=== PATIENT | male | born 1950 | race Caucasian/White ===

== ENCOUNTER 2016-06-19 21:03 | Inpatient (IN) | payer MEDICARE ==
[2016-06-19] MEDS ORDERED: IPRATROPIUM/ALBUTEROL 3 ML VIAL NEB ONE ×4 (21:09→23:46)
[2016-06-19] MEDS: SODIUM CHLORIDE 0.9% (FLUSH) 10 ML SYG IV PRN (21:49)
[2016-06-19] MEDS ORDERED: methylPREDNISolone SODIUM SUC 125 MG/2 ML VIAL IV ONE (21:57)
--- NOTE | 2016-06-19 21:57 | ED.PDOC ---
History of Present Illness - General Chief Complaint: Respiratory Problem Stated Complaint: short of breath Time Seen by Provider: 06/19/16 21:13 Source: patient Exam Limitations: no limitations - History of Present Illness Initial Comments: W.P. 66 y/o male with history of copd ,heart problems came back to er with worsening cough and sob staring 2 days ago.Seen here in er last night given breathing treatment sent home Timing/Duration: other - 2 days ago Severity: moderate Improving Factors: nothing Worsening Factors: nothing Associated Symptoms: cough, shortness of breath Allergies/Adverse Reactions: Allergies NO KNOWN ALLERGY Allergy (Verified 06/19/16 21:12) Home Medications: Ambulatory Orders Albuterol Sulfate Nebs [Proventil Nebs] 2.5 mg INH Q4-6H PRN 04/21/14 Aspirin [Baby Aspirin] 81 mg PO DAILY 04/21/14 Budesonide-Formoterol Fumarate [Symbicort 160-4.5 Mcg/Act] 2 puff INH DAILY 03/25 Terazosin HCl 2 mg PO BEDTIME 04/21/14 Furosemide 40 mg PO QAM #30 tab 08/26/14 Omeprazole [Prilosec Cap] 20 mg PO ACBK #30 cap 08/26/14 Acetaminophen W/ Codeine [Tylenol w/Codeine 300-30 mg] 1 tab PO Q4HR PRN #30 tab 12/24/15 Citalopram Hydrobromide [Celexa] 20 mg PO BEDTIME 12/24/15 Potassium Gluconate 595 mg PO DAILY 12/24/15 Prednisone [Deltasone] 20 mg PO DAILY #10 tab 12/24/15 Umeclidinium [place] [Incruse Ellipta] 62.5 mcg IN DAILY 12/24/15 Review of Systems - Review of Systems Constitutional: States: no symptoms reported EENTM: States: see HPI, nose congestion Respiratory: States: see HPI, cough Cardiology: States: no symptoms reported Gastrointestinal/Abdominal: States: no symptoms reported Genitourinary: States: no symptoms reported Musculoskeletal: States: no symptoms reported Skin: States: no symptoms reported Neurological: States: no symptoms reported Endocrine: States: no symptoms reported Hematologic/Lymphatic: States: no symptoms reported Past Medical History (General) - Patient Medical History Hx Seizures: No Hx Stroke: No Hx Dementia: No Hx Asthma: No Hx of COPD: Yes Hx Cardiac Disorders: Yes Hx Congestive Heart Failure: Yes Hx Pacemaker: No Hx Hypertension: Yes Hx Thyroid Disease: No Hx Diabetes: No Hx Gastroesophageal Reflux: No Hx Renal Disease: No Hx of HIV: No Hx MRSA: No Hx Other PMH: Yes - KE Surgical History: appendectomy, other - orif-left ankle - Vaccination History Hx Tetanus, Diphtheria Vaccination: No Hx Influenza Vaccination: No Hx Pneumococcal Vaccination: No Immunizations Up to Date: No - Social History Hx Tobacco Use: Yes Hx Alcohol Use: No Hx Substance Use: No Hx Substance Use Treatment: No Hx Depression: Yes Hx Physical Abuse: No Hx Emotional Abuse: No - Activities of Daily Living Patient Lives Alone: No - family Grooming Ability: Independent Eating (Feeding) Ability: Independent Toileting Ability: Independent - Female History Patient is a Female of Child Bearing Age (10 -59 yrs old): No Patient : No Family Medical History - Family History Father Living Status: Cause of : lung cancer Hx Family Hypertension: Yes Hx Cardiac Disease: Yes Age of Onset (years of age): MS Hx Family Cancer: Yes - lung-dad; Hx Family;Other: SEIZURES Mother Living Status: Hx Family Hypertension: Yes Hx Cardiac Disease: Yes Hx Family Cancer: Yes - skin Physical Exam - Physical Exam General Appearance: Alert, No apparent distress Ears, Nose, Throat: hearing grossly normal, normal ENT inspection, normal pharynx Neck: non-tender, full range of motion, supple Respiratory: chest non-tender, no respiratory distress, decreased breath sounds Cardiovascular/Chest: normal peripheral pulses, regular rate, rhythm, no gallop , no JVD, no murmur Gastrointestinal/Abdominal: normal bowel sounds, non tender, soft Back Exam: normal inspection, no CVA tenderness Extremity: non-tender, normal inspection, no pedal edema Neurologic: no motor/sensory deficits, alert, normal mood/affect, oriented x 3 Skin Exam: normal color, warm/dry Lymphatic: no adenopathy Progress - Progress Progress: 06/19/16 23:28 Patient desaturated spo2-88% - Results/Orders Results/Orders: 06/19/16 21:19 IV Care:Saline Lock per Protoc QSHIFT Telemetry .ONCE Sodium Chloride 0.9% (Flush) [Saline Flush Syringe] 10 ml IV PRN PRN EKG Stat Pulse Ox Stat 06/19/16 21:20 EKG Assessment ONCE Pulse Oximetry Assessment DAILY 06/19/16 21:21 SVN [SVN/Updraft Therapy] .PRN 06/19/16 22:00 SVN/Updraft Therapy .ONCE 06/20/16 09:00 Updrafts Daily Laboratory Results WBC 9.1 K/mm3 (4.8-10.8) 06/19/16 21:31 RBC 5.58 M/mm3 (4.70-6.10) 06/19/16 21:31 Hgb 15.7 gm/dL (14.0-18.0) 06/19/16 21:31 Hct 47.6 % (42.0-52.0) 06/19/16 21:31 MCV 85.3 fl (80.0-94.0) 06/19/16 21:31 MCH 28.1 pg (27.0-31.0) 06/19/16 21:31 MCHC 33.0 g/dL (33.0-37.0) 06/19/16 21:31 RDW 14.1 % (11.5-14.5) 06/19/16 21:31 Plt Count 227 K/mm3 (130-400) 06/19/16 21:31 MPV 7.8 fl (7.40-10.4) 06/19/16 21:31 Absolute Neuts (auto) 7.20 K/uL (1.8-6.8) H 06/19/16 21:31 Absolute Lymphs (auto) 1.00 K/uL (1.0-3.4) 06/19/16 21:31 Absolute Monos (auto) 0.80 K/uL (0.2-0.8) 06/19/16 21:31 Absolute Eos (auto) 0.10 K/uL (0.0-0.4) 06/19/16 21:31 Absolute Basos (auto) 0.10 K/uL (0.0-0.1) 06/19/16 21:31 Neutrophils % 79.0 % (42.0-78.0) H 06/19/16 21:31 Lymphocytes % 10.9 % (20.0-50.0) L 06/19/16 21:31 Monocytes % 8.4 % (2.0-9.0) 06/19/16 21: Eosinophils % 0.9 % (1.0-5.0) L 06/19/16 21: Basophils % 0.8 % (0.0-2.0) 06/19/16 21: PT 12.6 SECONDS (9.4-12.5) H 06/19/16 21:31 INR 1.120 06/19/16 21:31 PTT (SP) 29.0 SECONDS (25.1-36.5) 06/19/16 21:31 Sodium 138 mmol/L (135-145) 06/19/16 21:31 Potassium 3.5 mmol/L (3.6-5.0) L 06/19/16 21:31 Chloride 104 mmol/L (101-111) 06/19/16 21:31 Carbon Dioxide 24 mmol/L (21-31) 06/19/16 21:31 Anion Gap 13.5 (12-18) 06/19/16 21:31 BUN 14 mg/dL (7-18) 06/19/16 21:31 Creatinine 1.24 mg/dL (0.6-1.3) 06/19/16 21:31 BUN/Creatinine Ratio 11.3 (10-20) 06/19/16 21:31 Random Glucose 113 mg/dL (70-105) H 06/19/16 21:31 Serum Osmolality 277.0 mOsm/L (275-295) 06/19/16 21:31 Calcium 8.7 mg/dL (8.4-10.2) 06/19/16 21:31 Magnesium 1.8 mg/dL (1.8-2.5) 06/19/16 21:31 Creatine Kinase 391 IU/L (38-174) H* 06/19/16 21:31 CK-MB (CK-2) 6.4 ng/mL (0.0-4.4) H* 06/19/16 21: CK-MB (CK-2) % 1.64 % (0.0-3.5) 06/19/16 21:31 Troponin I < 0.02 ng/mL (0.01-0.05) 06/19/16 21: B-Natriuretic Peptide 29.0 pg/ml (0-100) 06/19/16 21:31 flu swab-negative;cxr-copd changes - EKG/XRAY/CT EKG: nonspecific ST T wave Chg - inferior leads XRAY: chest - copd changes Departure - Departure Clinical Impression: COPD exacerbation, COPD with acute exacerbation Time of Disposition: 02:10 - D/W Monty Tristan ANP-Hospitalist for admit Disposition: Admit Patient Condition: Good Departure Forms: ED Discharge - Pt. Copy, Patient Portal Self Enrollment Referrals: CAMILLE JAMES IV, CERTIFIED PHYSICIAN'S ASSISTANT [Primary Care Provider] - 1-2 Weeks Home Medications: Ambulatory Orders Albuterol Sulfate Nebs [Proventil Nebs] 2.5 mg INH Q4-6H PRN 04/21/14 Aspirin [Baby Aspirin] 81 mg PO DAILY 04/21/14 Budesonide-Formoterol Fumarate [Symbicort 160-4.5 Mcg/Act] 2 puff INH DAILY 03/25 Terazosin HCl 2 mg PO BEDTIME 04/21/14 Furosemide 40 mg PO QAM #30 tab 08/26/14 Omeprazole [Prilosec Cap] 20 mg PO ACBK #30 cap 08/26/14 Acetaminophen W/ Codeine [Tylenol w/Codeine 300-30 mg] 1 tab PO Q4HR PRN #30 tab 12/24/15 Citalopram Hydrobromide [Celexa] 20 mg PO BEDTIME 12/24/15 Potassium Gluconate 595 mg PO DAILY 12/24/15 Prednisone [Deltasone] 20 mg PO DAILY #10 tab 12/24/15 Umeclidinium [place] [Incruse Ellipta] 62.5 mcg IN DAILY 12/24/15
[2016-06-19] MEDS ORDERED: DOXYCYCLINE HYCLATE CAP 100 MG CAP PO ONE (22:00)
[2016-06-19] MEDS ORDERED: BENZONATATE PERLES 100 MG CAP PO ONE (22:06)
--- NOTE | 2016-06-20 02:37 | HP ---
SUPERVISING PHYSICIAN: Kenji Russell MD CHIEF COMPLAINT: Worsening shortness of breath. HISTORY OF PRESENT ILLNESS: Mr. Vicente is a 66-year-old, male patient with a history of chronic obstructive pulmonary disease that presented to the Emergency Department on date of admission with complaint of worsening cough that is becoming productive and increase in shortness of breath over the last 48 hours. He was previously seen within the last three weeks at the [facility] with Derek Kurtz for an upper respiratory infection and exacerbation of chronic obstructive pulmonary disease and was treated with azithromycin and a prednisone tapering regimen. He notes he had some improvement, but in the last 48 hours, he started having significant increase in shortness of breath with minimal exertion and a productive cough. He also notes that he had a fever a home prior to coming to the Emergency Department noted to be 101. On presentation to the Emergency Department, the patient did have a fever of 100.5. Pulse 110. Respirations 28. He was significantly short of breath and labored, using accessory muscles and saturating 92% on room air at rest. He was given breathing treatments which did help to decrease his respiratory effort , however, he maintained low O2 saturation on nasal cannula at 2 liters with 92% . Laboratory studies initially showed white count 9.1, hemoglobin 15.7, hematocrit 47.6 with a left shift noted. Blood gas analysis showed normal pH 7.43, PCO2 38, PO2 showing a mild hypoxemia PaO2 of 70 mmHg with carboxyhemoglobin of 2.1. Saturation 95% on nasal cannula at 2 liters. A chest x-ray was completed and per radiology interpretation initially showed no acute processes. There was no obvious infiltrate or consolidation noted. The patient has failed an outpatient treatment plan for previous exacerbation of his chronic obstructive pulmonary disease. He continues to smoke approximately one pack of cigarettes per day and started to show worsening symptoms to include fever, productive cough and having been recently on antibiotics within the last 20 days is now going to be admitted to the Medical/Surgical Floor for acute exacerbation of chronic obstructive pulmonary disease having failed to respond to outpatient treatment plan. PAST MEDICAL HISTORY: 1. Chronic obstructive pulmonary disease with recent exacerbation, treated in outpatient setting with antibiotics and corticosteroids. 2. Hypertension. 3. Benign prostatic hypertrophy. 4. Congestive heart failure with peripheral edema, last echocardiogram to be in 2016 per the patient with no current records for review. 5. Chronic tobacco abuse anywhere from half to one pack of cigarettes per day. 6. Depression and anxiety. PAST SURGICAL HISTORY: 1. Left ankle fracture requiring open reduction in 1979. 2. Appendectomy at age 21. 3. Tonsillectomy as a child. HOME MEDICATIONS: 1. Potassium chloride 10 mEq twice daily. 2. Albuterol nebulizer 0.083% inhaled q.4h. p.r.n. 3. Tylenol No. 3, 1 tablet q.4h. as needed. 4. Symbicort 160/4.5 mcg per actuator, 2 puffs inhaled twice daily. 5. Aspirin 81 mg daily. 6. Furosemide 40 mg at noon. 7. Celexa 20 mg daily. 8. Omeprazole 20 mg at breakfast. 9. Lasix 40 mg in the morning. 10. Incruse Ellipta 62.5 mcg daily. 11. Terazosin 2 mg at bedtime. ALLERGIES: NO KNOWN DRUG ALLERGIES. FAMILY HISTORY: Significant for chronic obstructive pulmonary disease, lung cancer, cardiovascular disease. SOCIAL HISTORY: The patient is disabled. He lives in [place]. He is . He has a history of smoking tobacco for over 50 years ranging from one to three packs per day and currently smoking. He denies alcohol or illicit drug use. REVIEW OF SYSTEMS: CONSTITUTIONAL: As noted, he reports subjective fever and some chills and has had fluctuation in his weight secondary to exacerbation of congestive heart failure. HEENT: As noted, some nasal congestion with sinus pressure and increasing cough. RESPIRATORY: Chronic shortness of breath with exacerbation with minimal exertion within the last two three days as noted in the history of present illness. CARDIOVASCULAR: Denies chest pains or syncopal episodes. He does have chronic lower extremity edema with history of congestive heart failure. GASTROINTESTINAL: Denies nausea or vomiting. No diarrhea. GENITOURINARY: He does have a history of benign prostatic hypertrophy, but denies and current dysuria or any urinary symptoms. EXTREMITIES: Chronic peripheral edema secondary to congestive heart failure. NEUROLOGIC: Denies headaches, weakness other than associated with his shortness of breath with minimal exertion. PHYSICAL EXAMINATION: VITAL SIGNS: Temperature on admission 100.5. Pulse 110. Blood pressure 150/ 97. Respirations 28, labored and using accessory muscles. O2 saturation 92% on room air at rest. Admission weight 128.9 kg. GENERAL: The patient is very unkempt, disheveled with a strong odor of tobacco. He seems to be in mild distress on examination in the Emergency Department. He is unable to talk in complete sentences at times even on oxygen. HEENT: Tympanic membranes occluded with cerumen bilaterally. Oropharynx is pink , moist without any lesions noted. NECK: No jugular venous distention noted. CHEST: Lung sounds are diminished bilaterally with inspiratory and expiratory wheezing heard on the right lung more than the left with some faint rhonchi on the posterior right base. CARDIOVASCULAR: Regular rate and rhythm without any appreciable murmurs, gallops, or rubs. ABDOMEN: Obese, but soft, nontender. Positive bowel sounds. EXTREMITIES: There is no cyanosis, clubbing or edema. NEUROLOGIC: The patient is alert and oriented times three. Facial features are symmetrical. Extraocular movements are within normal limits. There is no nystagmus noted. There are no obvious neuromotor deficits. LABORATORY: White count within normal limits with white count 9.1, hemoglobin 15.7, hematocrit 47.6. There is a left shift noted. Coagulation studies show slightly elevated PT of 12.6 and PT-T was 29.0. Blood gas analysis showed normal pH with PCO2 38 with a mild hypoxemia noted at 70. Bicarb normal at 24.7. Carboxyhemoglobin 2.1. Gas was taken on 2 liters nasal cannula at rest. Chemistries showed just a mildly low potassium of 3.5, BUN 14, creatinine 1.24 , glucose 113. CPK elevated at 391, troponin less than 0.02, BNP 29.0. Urinalysis is pending. MICROBIOLOGY: Blood cultures pending. Sputum culture pending. Influenza A and B negative by PCR. RADIOLOGY: Chest x-ray per radiology interpretation showed no acute pleural parenchymal processes noted with notable underlying changes of chronic obstructive pulmonary disease. ASSESSMENT: 1. Acute exacerbation of chronic obstructive pulmonary disease having failed to respond to recent outpatient treatment plan that included azithromycin and corticosteroid regimen with concerns for development of early pneumonia with current radiographic studies without any evidence of consolidations or effusions. 2. Mild hypoxemia as noted on arterial blood gases and acute exacerbation of chronic obstructive pulmonary disease in a chronic smoker, having failed to respond recently to outpatient treatment plan. 3. History of congestive heart failure with chronic pedal edema with possible systolic/diastolic etiology with no current echocardiogram available for chart review with the patient reporting last echocardiogram in 2016. 4. History of essential hypertension. 5. Gastroesophageal reflux disease. 6. Chronic tobacco abuse. 7. History of chronic anxiety and depressive symptoms. PLAN: The patient will be admitted to the hospital having failed to respond to treatment of recently exacerbation of chronic obstructive pulmonary disease. He will be started on Solu-Medrol initially 125 mg to be continued at 80 mg for 3 doses. He will be started on antibiotic coverage to include azithromycin and Rocephin with concerns for early development of pneumonia with risk factors including recent exacerbation having been on antibiotic coverage in the past 3 weeks and a patient who continues to smoke showing increasing shortness of breath with minimal exertion with no evidence of exacerbation of his congestive heart failure. He will be started on DVT prophylaxis per protocol. We will provide him with aggressive pulmonary hygiene to include DuoNeb treatments q.i.d. and pulmonary toiletry. He will be continued on Protonix IV while on corticosteroids. We will anticipate his length of stay to be 2 to 3 days. Until then, we will continue to monitor the patient closely and treat appropriately. Once discharged, the patient will need close clinical followup with his primary care provider at [facility] with nurse practitioner, Derek Kurtz. #[id number] [facility]ERShelby
[2016-06-20] MEDS ORDERED: ACETAMINOPHEN 325 MG TAB PO PRN (03:02)
[2016-06-20] MEDS ORDERED: SODIUM CHLORIDE 0.9% 250ML 250 ML ONE ×2 (03:22→22:28)
[2016-06-20] MEDS ORDERED: SODIUM CHL 0.9% 50ML MIN-BAG+ 50 ML IVPB ONE ×2 (03:22→22:28)
[2016-06-20] MEDS ORDERED: SODIUM CHLORIDE 0.9% 10 ML VIAL ONE (03:22)
[2016-06-20] MEDS ORDERED: AZITHROMYCIN IV 500 MG VIAL IVPB ONE ×2 (03:23→22:29)
[2016-06-20] MEDS ORDERED: cefTRIAXone SODIUM 1 GM VIAL ONE ×2 (03:24→22:29)
[2016-06-20] MEDS: SODIUM CHLORIDE 0.9% (FLUSH) 10 ML SYG IV PRN ×2 (03:29→06:31)
[2016-06-20] MEDS: methylPREDNISolone SODIUM SUC 125 MG/2 ML VIAL IV SCH ×3 (03:29→21:52)
[2016-06-20] MEDS: cefTRIAXone SODIUM 1 GM in SODIUM CHL 0.9% 50ML MIN-BAG+ 50 ML IVPB SCH (03:29)
[2016-06-20] MEDS: IV SET AND CAP CHANGE INJ INJ SCH (03:30)
[2016-06-20] MEDS: AZITHROMYCIN IV 500 MG in SODIUM CHLORIDE 0.9% 250ML 250 ML IVPB SCH (04:04)
[2016-06-20] MEDS: PANTOPRAZOLE SODIUM IV 40 MG VIAL IV SCH (06:31)
[2016-06-20] MEDS: IPRATROPIUM/ALBUTEROL 3 ML VIAL INH SCH ×5 (07:40→21:10)
[2016-06-20] MEDS: SODIUM CHLORIDE 0.9% (FLUSH) 10 ML SYG IV SCH ×2 (09:22→21:51)
[2016-06-20] MEDS ORDERED: POTASSIUM CHLORIDE 20 MEQ TAB PO ONE (11:15)
--- NOTE | 2016-06-20 11:42 | PN ---
SUPERVISING PHYSICIAN: Kenji Russell MD DATE: 06/20/16 SUBJECTIVE: The patient is sitting up in his bed. He complains of shortness of breath with minimal exertion. He denies any chest pain, abdominal pain, nausea or vomiting. OBJECTIVE: VITAL SIGNS: Temperature 100.5. Heart rate has gone up as high as 110, but is now 96. Blood pressure 150/84. Respiratory rate 30. O2 saturation 92% on 2 liters nasal cannula. GENERAL: This is a 66-year-old, obese male who sitting up in his hospital bed. He is dyspneic with talking. LUNGS: Expiratory wheezing throughout, somewhat diminished at the bases. CARDIAC: Regular rate and rhythm. ABDOMEN: Obese, rounded, soft. Bowel sounds are positive. EXTREMITIES: No cyanosis or clubbing, but there is trace pedal edema bilaterally. NEUROLOGIC: Awake, alert and oriented times three. LABORATORY: Potassium 3.5, glucose 113, creatinine kinase 391. CK-MB 6.4. WBC 9.1, but neutrophils are 79. All other labs and films have been reviewed via the EMR. ASSESSMENT: 1. Acute exacerbation of chronic obstructive pulmonary disease having failed to respond to recent outpatient treatment that included Zithromax and oral corticosteroids and concerns for development of early pneumonia. 2. Mild hypoxemia as noted on arterial blood gases and acute exacerbation of chronic obstructive pulmonary disease in a chronic smoker. 3. History of congestive heart failure with chronic pedal edema with possible systolic/diastolic etiology with no current echocardiogram available for chart review. 4. History of essential hypertension. 5. Gastroesophageal reflux disease. 6. Chronic tobacco abuse. 7. History of chronic anxiety and depressive symptoms. PLAN: We will continue present antibiotic therapy of Rocephin and Zithromax. I will continue to slowly taper down his steroids. I have added Lovenox for DVT prophylaxis. I have re-started his home medications. I have also called Derek Kurtz's office to see if he can fax us a recent copy of his echocardiogram. I have also given him an additional dosing of potassium today as his potassium was slightly low. I started him on some Mucinex. He will need an ambulatory study tomorrow and his CK will probably need to be repeated before discharge. I have not re-started his Lasix or his potassium as of yet as he is about 9 pounds under what his weight is at home on a normal basis. I will recheck tomorrow and re-start that at that time. We will continue to encourage good pulmonary toilet. I have started discussions with him about tobacco cessation and we will continue discussing that tomorrow. He will need an ambulation study tomorrow. Dr. Russell is the collaborating physician and available for consultation. #[id number] MTDD
[2016-06-20] MEDS: guaiFENesin ER TAB 600 MG TAB PO SCH ×2 (12:12→21:51)
[2016-06-20] MEDS: ENOXAPARIN SODIUM 40 MG/0.4 ML SYG SUBCU SCH (12:12)
[2016-06-20] MEDS: TERAZOSIN 1 MG CAP PO SCH (21:51)
[2016-06-21] MEDS: methylPREDNISolone SODIUM SUC 125 MG/2 ML VIAL IV SCH ×4 (03:15→20:50)
[2016-06-21] MEDS: cefTRIAXone SODIUM 1 GM in SODIUM CHL 0.9% 50ML MIN-BAG+ 50 ML IVPB SCH (03:18)
[2016-06-21] MEDS: AZITHROMYCIN IV 500 MG in SODIUM CHLORIDE 0.9% 250ML 250 ML IVPB SCH (03:55)
[2016-06-21] MEDS: PANTOPRAZOLE SODIUM IV 40 MG VIAL IV SCH (06:10)
--- NOTE | 2016-06-21 06:58 | RAD ---
EXAM: Two view chest. INDICATION: Chest pain. COMPARISON: Chest x-ray: 06/19/2016. FINDINGS: Cardiac silhouette: Unremarkable. Kayley: Unremarkable. Lobar consolidation: None.Pleural effusion: None.Pneumothorax: None.Other: Lungs are emphysematous Bones: Unremarkable. Other: None. IMPRESSION: Emphysematous appearing lungs Electronically signed by: Houston Cai MD 06/21/2016 6:57 AM [facility] ATTENDANT
--- NOTE | 2016-06-21 07:45 | RAD ---
EXAM DESCRIPTION: XR CHEST 2 VIEWS CLINICAL HISTORY: Pneumonia COMPARISON: June 19, 2016 FINDINGS: Two-view chest x-ray shows cardiomediastinal silhouette and pulmonary vasculature to be within normal limits. The lungs are hyperinflated without acute appearing infiltrate or consolidation. There is a 5 mm probably calcified pulmonary nodule in the central right lung best seen on PA projection. Costophrenic angles are sharp. Mild disc degenerative changes of the spine are seen. IMPRESSION: No radiographic evidence of acute cardiopulmonary disease in this emphysematous chest. Electronically signed by: Gopi Velasco MD 06/21/2016 07:43
[2016-06-21] MEDS ORDERED: ASPIRIN (CHEWABLE) 81 MG TAB ONE (07:59)
[2016-06-21] MEDS ORDERED: CITALOPRAM HBR 20 MG TAB ONE (07:59)
[2016-06-21] MEDS: NON-FORMULARY MEDICATION 1 EA MIS (Umeclidinium Bromide [Incruse Ellipta] 62.5 MCG) IN SCH (08:27)
[2016-06-21] MEDS: IPRATROPIUM/ALBUTEROL 3 ML VIAL INH SCH ×4 (08:28→21:25)
[2016-06-21] MEDS: BUDESONIDE/FORMOTEROL 160/4.5 60 PUFF/6 GM INH INH SCH ×2 (08:35→21:25)
[2016-06-21] MEDS: ASPIRIN (CHEWABLE) 81 MG TAB PO SCH (09:21)
[2016-06-21] MEDS: guaiFENesin ER TAB 600 MG TAB PO SCH ×2 (09:21→20:49)
[2016-06-21] MEDS: CITALOPRAM HBR 20 MG TAB PO SCH (09:22)
[2016-06-21] MEDS: SODIUM CHLORIDE 0.9% (FLUSH) 10 ML SYG IV SCH ×2 (09:22→20:49)
[2016-06-21] MEDS: ENOXAPARIN SODIUM 40 MG/0.4 ML SYG SUBCU SCH (11:56)
[2016-06-21] MEDS ORDERED: DEXTROSE 50% 25 GM/50 ML SYG IV PRN (14:40)
[2016-06-21] MEDS ORDERED: GLUCAGON INJ 1 MG VIAL SUBCU PRN (14:40)
--- NOTE | 2016-06-21 16:03 | PN ---
DATE: 06/21/16 SUPERVISING PHYSICIAN: Kenji Russell M.D. SUBJECTIVE: The patient is sitting up on the side of his bed. He has just finished his bath. He is extremely short of breath. He actually cannot form words without using his mask from his CPAP machine. He denies any chest pain, abdominal pain or nausea or vomiting. He does say that he gets extremely short of breath. OBJECTIVE: VITAL SIGNS: Afebrile, heart rate 90, blood pressure 155/94, respiratory rate 30, O2 sat is 91%. GENERAL: This is a 66 year-old obese male who is dyspneic at this time siting on the side of his bed. LUNGS: He has expiratory wheezing throughout. He is diminished at the bases and there are a few scattered rhonchi throughout. CARDIAC: Regular rate and rhythm. ABDOMEN: Obese, rounded. It is soft. His bowel sounds are positive. EXTREMITIES: No cyanosis, clubbing or edema. NEUROLOGIC: He is awake, alert and oriented times three. LABORATORY: Sodium 138, potassium 4.2, BUN 23, creatinine 0.96. WBC 15, hemoglobin 15.6, hematocrit 47.6. He does have a left shift. Preliminary sputum culture shows normal lakia at 24 hours. Preliminary blood cultures show no growth after 24 hours. Chest x-ray shows emphysematous lungs. All other labs and films have been reviewed via the EMR. ASSESSMENT: 1. Acute exacerbation of chronic obstructive pulmonary disease having failed to respond to recent outpatient treatment that included Zithromax and oral corticosteroids as well as concerns for developing early pneumonia. 2. Hypoxemia as noted on arterial blood gases with PO2 of 70 and an acute exacerbation of chronic obstructive pulmonary disease in a chronic smoker. 3. History of congestive heart failure with chronic pedal edema. 4. History of hypertension. 5. Gastroesophageal reflux disease. 6. Chronic tobacco abuse. 7. Chronic anxiety and depressive symptoms. PLAN: We will continue present antibiotic treatment of Rocephin and Zithromax. He still has IV steroids being administered as for right now I may have to go up on those dosings due to his lung status. His Lasix has been restarted. We have talked extensively about smoking cessation. I will also order labs tomorrow, including creatinine kinase. Continue to encourage good pulmonary toilet. I have also ordered sliding scale insulin to cover for his elevated blood sugars due to corticosteroid administration. Also followup to make sure that echocardiogram was received from Derek Kurtz's office. Will continue to monitor the patient closely and follow as needed. #[id number] [facility]
[2016-06-21] MEDS: INSULIN LISPRO 100 UNITS/ML PEN SUBCU SCH ×2 (17:46→20:53)
[2016-06-21] MEDS ORDERED: SODIUM CHL 0.9% 50ML MIN-BAG+ 50 ML IVPB ONE (20:12)
[2016-06-21] MEDS ORDERED: cefTRIAXone SODIUM 1 GM VIAL ONE (20:12)
[2016-06-21] MEDS ORDERED: SODIUM CHLORIDE 0.9% 250ML 250 ML ONE (20:12)
[2016-06-21] MEDS ORDERED: AZITHROMYCIN IV 500 MG VIAL IVPB ONE (20:13)
[2016-06-21] MEDS: TERAZOSIN 1 MG CAP PO SCH (20:49)
[2016-06-21] MEDS: SIMVASTATIN 10 MG TAB PO SCH (20:51)
[2016-06-22] MEDS: methylPREDNISolone SODIUM SUC 125 MG/2 ML VIAL IV SCH ×2 (03:14→08:35)
[2016-06-22] MEDS: SODIUM CHLORIDE 0.9% (FLUSH) 10 ML SYG IV PRN ×2 (03:15→06:04)
[2016-06-22] MEDS: cefTRIAXone SODIUM 1 GM in SODIUM CHL 0.9% 50ML MIN-BAG+ 50 ML IVPB SCH (03:16)
[2016-06-22] MEDS: AZITHROMYCIN IV 500 MG in SODIUM CHLORIDE 0.9% 250ML 250 ML IVPB SCH (03:49)
[2016-06-22] MEDS: ALBUTEROL SULFATE 2.5 MG/3 ML VIAL NEB PRN (03:55)
[2016-06-22] MEDS: PANTOPRAZOLE SODIUM IV 40 MG VIAL IV SCH (06:03)
[2016-06-22] MEDS: INSULIN LISPRO 100 UNITS/ML PEN SUBCU SCH ×4 (07:28→21:24)
[2016-06-22] MEDS: guaiFENesin ER TAB 600 MG TAB PO SCH ×2 (08:35→21:19)
[2016-06-22] MEDS: SODIUM CHLORIDE 0.9% (FLUSH) 10 ML SYG IV SCH ×2 (08:35→21:18)
[2016-06-22] MEDS: ASPIRIN (CHEWABLE) 81 MG TAB PO SCH (08:36)
[2016-06-22] MEDS: CITALOPRAM HBR 20 MG TAB PO SCH (08:36)
[2016-06-22] MEDS: BUDESONIDE/FORMOTEROL 160/4.5 60 PUFF/6 GM INH INH SCH ×2 (09:02→22:56)
[2016-06-22] MEDS: NON-FORMULARY MEDICATION 1 EA MIS (Umeclidinium Bromide [Incruse Ellipta] 62.5 MCG) IN SCH (09:02)
[2016-06-22] MEDS: IPRATROPIUM/ALBUTEROL 3 ML VIAL INH SCH ×4 (09:02→22:56)
[2016-06-22] MEDS: ENOXAPARIN SODIUM 40 MG/0.4 ML SYG SUBCU SCH (11:55)
[2016-06-22] MEDS ORDERED: POTASSIUM CHLORIDE 10 MEQ TAB PO ONE (12:55)
[2016-06-22] MEDS: FUROSEMIDE 40 MG TAB PO SCH (13:05)
[2016-06-22] MEDS: POTASSIUM CHLORIDE 10 MEQ TAB PO SCH ×2 (13:10→16:53)
--- NOTE | 2016-06-22 13:37 | PN ---
DATE: 06/22/16 SUPERVISING PHYSICIAN: Venkat Powell M.D. SUBJECTIVE: The patient is sitting up on the side of his bed eating his lunch. He has no complaints of chest discomfort, shortness of breath, nausea or vomiting. In fact, he states he feels "100 percent better than yesterday." OBJECTIVE: VITAL SIGNS: He is afebrile, heart rate 103, blood pressure 137/74, respiratory rate 21, O2 sats are 90%. Intake 2700, output 2200. There is no weight from today on the chart. GENERAL: This is a 66 year-old obese male who is sitting up in his bed. He is in no acute distress. RESPIRATORY: A few scattered expiratory wheezing throughout and some rhonchi in the apices, but much improved since yesterday. CARDIAC: Regular rate and rhythm. ABDOMEN: Soft , nondistended, non-tender. Bowel sounds are positive. NEUROLOGIC: He is awake , alert and oriented times three. LABORATORY: WBC 15.1 with a left shift. BUN 25, creatinine 1.05, creatinine kinase is slightly up from 2 days ago at 467. His final sputum culture shows normal lakia and his preliminary blood cultures show no growth after 48 hours. All other labs and films have been reviewed via the EMR. ASSESSMENT: 1. Acute exacerbation of chronic obstructive pulmonary disease having failed to respond to recent outpatient treatment that included Azithromycin and oral corticosteroids as well as concerns for developing of early pneumonia. 2. Hypoxemia as noted on ABG with a PO2 of 70. 3. Acute exacerbation of chronic obstructive pulmonary disease in a chronic smoker. 4. History of congestive heart failure with chronic pedal edema. 5. History of hypertension. 6. Gastroesophageal reflux disease. 7. Chronic tobacco abuse. 8. Chronic anxiety and depressive symptoms. PLAN: We will continue his present antibiotics as well as his breathing treatments. I have encouraged good pulmonary hygiene. I have decreased his IV steroids today and tomorrow morning he will start p.o. steroids. Will continue with a p.o. steroid taper. I have also restarted his Lasix and his potassium from his home medications. I will do a chest x-ray and labs in the morning. He has improved greatly since yesterday and only occasionally shows some dyspnea which most likely is at his baseline. I have encouraged him to stop smoking. We will continue to monitor the patient closely and followup as needed. Dr. Powell is the supervising physician and available for consultation. #[id number] [facility]
[2016-06-22] MEDS: methylPREDNISolone SODIUM SUC 40 MG/ML VIAL IV SCH ×2 (15:29→21:18)
[2016-06-22] MEDS: TERAZOSIN 1 MG CAP PO SCH (21:19)
[2016-06-22] MEDS: SIMVASTATIN 10 MG TAB PO SCH (21:19)
[2016-06-23] MEDS ORDERED: cefTRIAXone SODIUM 1 GM VIAL ONE (03:10)
[2016-06-23] MEDS ORDERED: SODIUM CHLORIDE 0.9% 250ML 250 ML ONE (03:10)
[2016-06-23] MEDS ORDERED: SODIUM CHL 0.9% 50ML MIN-BAG+ 50 ML IVPB ONE (03:10)
[2016-06-23] MEDS ORDERED: AZITHROMYCIN IV 500 MG VIAL IVPB ONE (03:10)
[2016-06-23] MEDS: SODIUM CHLORIDE 0.9% (FLUSH) 10 ML SYG IV PRN ×2 (03:23→06:03)
[2016-06-23] MEDS: cefTRIAXone SODIUM 1 GM in SODIUM CHL 0.9% 50ML MIN-BAG+ 50 ML IVPB SCH (03:24)
[2016-06-23] MEDS: IV SET AND CAP CHANGE INJ INJ SCH (04:00)
[2016-06-23] MEDS: AZITHROMYCIN IV 500 MG in SODIUM CHLORIDE 0.9% 250ML 250 ML IVPB SCH (04:00)
[2016-06-23] MEDS: SODIUM CHLORIDE 0.9% 10 ML VIAL IV PRN ×2 (04:01→06:03)
[2016-06-23] MEDS: PANTOPRAZOLE SODIUM IV 40 MG VIAL IV SCH (06:04)
--- NOTE | 2016-06-23 07:06 | RAD ---
EXAM: Two view chest. INDICATION: Chest pain. COMPARISON: Chest x-ray: 06/21/2016. FINDINGS: Cardiac silhouette: Unremarkable. Kayley: Unremarkable. Lobar consolidation: None.Pleural effusion: None.Pneumothorax: None.Other: The lungs are emphysematous Bones: Unremarkable. Other: None. IMPRESSION: Emphysematous appearing lungs Electronically signed by: Houston Cai MD 06/23/2016 7:05 AM [facility] ASSISTANT
[2016-06-23] MEDS ORDERED: predniSONE 20 MG TAB ONE (07:10)
[2016-06-23] MEDS: INSULIN LISPRO 100 UNITS/ML PEN SUBCU SCH ×4 (07:25→21:14)
[2016-06-23] MEDS: POTASSIUM CHLORIDE 10 MEQ TAB PO SCH ×2 (07:45→16:35)
[2016-06-23] MEDS: FUROSEMIDE 40 MG TAB PO SCH (08:34)
[2016-06-23] MEDS: CITALOPRAM HBR 20 MG TAB PO SCH (08:34)
[2016-06-23] MEDS: guaiFENesin ER TAB 600 MG TAB PO SCH ×2 (08:34→20:54)
[2016-06-23] MEDS: ASPIRIN (CHEWABLE) 81 MG TAB PO SCH (08:34)
[2016-06-23] MEDS: SODIUM CHLORIDE 0.9% (FLUSH) 10 ML SYG IV SCH ×2 (08:35→20:57)
[2016-06-23] MEDS: NON-FORMULARY MEDICATION 1 EA MIS (Umeclidinium Bromide [Incruse Ellipta] 62.5 MCG) IN SCH (08:48)
[2016-06-23] MEDS: BUDESONIDE/FORMOTEROL 160/4.5 60 PUFF/6 GM INH INH SCH (08:48)
[2016-06-23] MEDS: IPRATROPIUM/ALBUTEROL 3 ML VIAL INH SCH (08:48)
[2016-06-23] MEDS ORDERED: predniSONE 20 MG TAB PO SCH (09:00)
[2016-06-23] MEDS ORDERED: FUROSEMIDE INJ 40 MG/4 ML VIAL IV ONE (10:38)
[2016-06-23] MEDS ORDERED: levoFLOXacin 500MG IV 100 ML IVPB ONE (10:43)
[2016-06-23] MEDS ORDERED: levoFLOXacin 500MG IV 500 MG in PREMIX BAG 1 BAG IVPB SCH (11:00)
[2016-06-23] MEDS: levoFLOXacin 500MG IV 500 MG in PREMIX BAG 1 BAG IVPB SCH (11:18)
[2016-06-23] MEDS: methylPREDNISolone SODIUM SUC 125 MG/2 ML VIAL IV SCH ×2 (11:19→18:34)
[2016-06-23] MEDS: ENOXAPARIN SODIUM 40 MG/0.4 ML SYG SUBCU SCH (11:20)
[2016-06-23] MEDS: IPRATROPIUM/ALBUTEROL 3 ML VIAL NEB SCH ×3 (11:55→19:45)
--- NOTE | 2016-06-23 12:57 | PN ---
DATE: 06/23/16 SUPERVISING PHYSICIAN: Venkat Powell M.D. SUBJECTIVE: The patient is sitting up in his hospital bed. He is very dyspneic. He can only speak 1 to 2 words at a time without shortness of breath. We discussed at length smoking cessation. He says he has not wanted a cigarette since he has been here, but that he was not interested in stopping smoking at this time. I instructed him that if he continued to smoke, his life expectancy would be very short. Other than complaining of shortness of breath, wheezing and coughing, he denies any chest pain, abdominal pain, nausea or vomiting. OBJECTIVE: He is afebrile, heart rate 99, blood pressure 144/94, respiratory rate 20 to 28, O2 saturation is 90%. Weight is stable. Overnight, he lost 0.7 kg. RESPIRATORY: Bilateral scattered rhonchi with diffuse expiratory wheezing. He is diminished at the bases. He is tachypneic. CARDIAC: Regular rate and rhythm. ABDOMEN: Soft, obese. Bowel sounds are positive. EXTREMITIES: No cyanosis, clubbing or edema. NEUROLOGIC: He is awake, alert and oriented times three. LABORATORY: WBC 13.5, BUN 26, creatinine 0.90, glucose 152, creatinine kinase 28. Final sputum culture shows normal lakia. Preliminary blood cultures showed no growth after 3 days. Chest x-ray shows emphysematous lungs. All other labs and films have been reviewed via the EMR. ASSESSMENT: 1. Acute exacerbation of chronic obstructive pulmonary disease having failed to respond to recent outpatient treatment that included Azithromycin and oral corticosteroids as well as concern for developing early pneumonia. 2. Hypoxemia as noted on an ABG with a PO2 of 70 as well as low oxygen saturations. 3. Acute exacerbation of chronic obstructive pulmonary disease in a chronic smoker. 4. History of congestive heart failure with chronic pedal edema. 5. History of hypertension. 6. Gastroesophageal reflux disease. 7. Chronic tobacco abuse. 8. Chronic anxiety and depressive symptoms. PLAN: We will continue present supportive care. I have discontinued his Azithromycin and Rocephin and I am going to change his antibiotic to Levaquin. I had tried to taper his steroids down, but his respiratory status has worsened. I spoke with Dr. Powell at length and we have decided that we will increase his Solu-Medrol to 125 every 8 hours at least until tomorrow. I am giving some extra Lasix today. I will check his routine labs in the morning. He has scheduled DuoNeb and p.r.n. Albuterol treatments, and I have added Albuterol nebulizer treatments every 4 hours. I will do an ambulatory study in the morning. We will also need to continue to stress smoking cessation as if the patient does not quit smoking, his prognosis is very poor. It may be advisable to discuss with him his code status at some point. Otherwise we will continue present supportive care. We will monitor the patient and followup as needed. #[id number] [facility]
[2016-06-23] MEDS: ALBUTEROL SULFATE 2.5 MG/3 ML VIAL NEB SCH ×3 (14:11→22:00)
[2016-06-23] MEDS: TERAZOSIN 1 MG CAP PO SCH (20:56)
[2016-06-23] MEDS: SIMVASTATIN 10 MG TAB PO SCH (20:56)
[2016-06-24] MEDS: SODIUM CHLORIDE 0.9% (FLUSH) 10 ML SYG IV PRN ×2 (03:01→06:00)
[2016-06-24] MEDS: methylPREDNISolone SODIUM SUC 125 MG/2 ML VIAL IV SCH ×2 (03:02→11:37)
[2016-06-24] MEDS: ALBUTEROL SULFATE 2.5 MG/3 ML VIAL NEB SCH ×6 (04:00→22:53)
[2016-06-24] MEDS: SODIUM CHLORIDE 0.9% 10 ML VIAL IV PRN (06:00)
[2016-06-24] MEDS: PANTOPRAZOLE SODIUM IV 40 MG VIAL IV SCH (06:02)
[2016-06-24] MEDS: INSULIN LISPRO 100 UNITS/ML PEN SUBCU SCH ×4 (07:00→21:00)
[2016-06-24] MEDS: IPRATROPIUM/ALBUTEROL 3 ML VIAL NEB SCH ×5 (09:23→21:15)
[2016-06-24] MEDS: BUDESONIDE/FORMOTEROL 160/4.5 60 PUFF/6 GM INH INH SCH ×2 (09:26→21:15)
[2016-06-24] MEDS: NON-FORMULARY MEDICATION 1 EA MIS (Umeclidinium Bromide [Incruse Ellipta] 62.5 MCG) IN SCH (09:33)
[2016-06-24] MEDS: CITALOPRAM HBR 20 MG TAB PO SCH (09:40)
[2016-06-24] MEDS: ASPIRIN (CHEWABLE) 81 MG TAB PO SCH (09:40)
[2016-06-24] MEDS: POTASSIUM CHLORIDE 10 MEQ TAB PO SCH ×2 (09:40→17:01)
[2016-06-24] MEDS: FUROSEMIDE 40 MG TAB PO SCH (09:41)
[2016-06-24] MEDS: guaiFENesin ER TAB 600 MG TAB PO SCH ×2 (09:41→21:35)
[2016-06-24] MEDS: SODIUM CHLORIDE 0.9% (FLUSH) 10 ML SYG IV SCH ×2 (09:42→21:34)
[2016-06-24] MEDS: ENOXAPARIN SODIUM 40 MG/0.4 ML SYG SUBCU SCH (11:47)
[2016-06-24] MEDS ORDERED: levoFLOXacin 500MG IV 100 ML IVPB ONE (12:15)
[2016-06-24] MEDS: levoFLOXacin 500MG IV 500 MG in PREMIX BAG 1 BAG IVPB SCH (12:23)
--- NOTE | 2016-06-24 15:23 | PN ---
DATE: 06/24/16 SUBJECTIVE: The patient is lying in the bed and is encouraged to become more active. He appears to be less dyspneic today compared to yesterday. He has had a significantly increased level of corticosteroid administration over the last day and hopefully this will help a little bit on his significant advanced end stage emphysema. The patient is awake and alert. He admits that smoking needs to stop and is willing to do so. We are willing to support in any way we can. He did have some ambulation studies and results are pending. He has BiPAP at home but does not use oxygen at home. His ongoing need for oxygen will be determined by ongoing investigation and evaluation. OBJECTIVE: Afebrile, pulse 89, blood pressure 132/81, pulse oximetry 92% on nasal cannula. Awaiting ambulation studies. LUNGS: Have markedly diminished breath sounds with occasional rhonchi in the lateral lung manuel. HEART: Tones are distant yet regular. ABDOMEN: Soft with slight obesity evident. The patient is awake and alert. Color is fairly good with oxygen being supplemented at this time. His BiPAP machine is examined and will required specialized cleansing and cleaning by the respiratory technicians. LABORATORY: White count 11,500 with 91% neutrophils, hemoglobin 15.3. Chemistries show potassium down a little bit to 3.4 with supplement started. Glucose 162 fasting. Sputum and blood cultures are negative. Repeat chest x- ray yesterday did show evidence of chronic obstructive pulmonary disease. ASSESSMENT: 1. Chronic obstructive pulmonary disease with an acute exacerbation requiring bronchodilators, corticosteroid administration and respiratory support. 2. Chronic hypoxia requiring oxygen for the first time with evaluation to determine his ongoing need as an outpatient in progress. 3. History of congestive heart failure with chronic pedal edema probable right sided heart failure with cor pulmonale. 4. History of hypertension. 5. Gastroesophageal reflux disease. 6. Chronic tobacco abuse encouraged to stop completely. 7. Chronic anxiety and depressive symptoms. PLAN: Will continue current treatment program. Taper corticosteroids. To continue with antibiotics. Continue with bronchodilators. Await ambulation studies to evaluate the ongoing need for outpatient oxygen at home. Clean the BiPAP machine and continue with education. The patient does have end stage emphysema and will required continued supportive care. #[id number] [facility]
[2016-06-24] MEDS: TERAZOSIN 1 MG CAP PO SCH (21:34)
[2016-06-24] MEDS: SIMVASTATIN 10 MG TAB PO SCH (21:35)
[2016-06-24] MEDS: methylPREDNISolone SODIUM SUC 40 MG/ML VIAL IV SCH (21:35)
[2016-06-25] MEDS: ALBUTEROL SULFATE 2.5 MG/3 ML VIAL NEB SCH ×7 (02:51→22:24)
[2016-06-25] MEDS: SODIUM CHLORIDE 0.9% (FLUSH) 10 ML SYG IV PRN (06:36)
[2016-06-25] MEDS: PANTOPRAZOLE SODIUM IV 40 MG VIAL IV SCH (06:37)
[2016-06-25] MEDS: SODIUM CHLORIDE 0.9% 10 ML VIAL IV PRN (06:37)
[2016-06-25] MEDS: POTASSIUM CHLORIDE 10 MEQ TAB PO SCH ×2 (08:03→17:07)
[2016-06-25] MEDS: INSULIN LISPRO 100 UNITS/ML PEN SUBCU SCH ×4 (08:03→21:16)
[2016-06-25] MEDS ORDERED: levoFLOXacin 500MG IV 100 ML IVPB ONE (08:35)
[2016-06-25] MEDS: IPRATROPIUM/ALBUTEROL 3 ML VIAL NEB SCH ×4 (08:35→20:18)
[2016-06-25] MEDS: CITALOPRAM HBR 20 MG TAB PO SCH (09:06)
[2016-06-25] MEDS: ASPIRIN (CHEWABLE) 81 MG TAB PO SCH (09:06)
[2016-06-25] MEDS: guaiFENesin ER TAB 600 MG TAB PO SCH ×2 (09:06→20:45)
[2016-06-25] MEDS: FUROSEMIDE 40 MG TAB PO SCH (09:06)
[2016-06-25] MEDS: methylPREDNISolone SODIUM SUC 40 MG/ML VIAL IV SCH ×2 (09:07→20:45)
[2016-06-25] MEDS: SODIUM CHLORIDE 0.9% (FLUSH) 10 ML SYG IV SCH ×2 (09:07→20:44)
[2016-06-25] MEDS: levoFLOXacin 500MG IV 500 MG in PREMIX BAG 1 BAG IVPB SCH (10:35)
[2016-06-25] MEDS: ENOXAPARIN SODIUM 40 MG/0.4 ML SYG SUBCU SCH (11:41)
--- NOTE | 2016-06-25 13:39 | PN ---
DATE: 06/25/16 SUBJECTIVE: The patient is still quite short of breath and when walking for an ambulation study was also noticeably somewhat cyanotic in coloration and was unable to speak because of his exertion. OBJECTIVE: VITAL SIGNS: Saturation did drop down to about 88% with ambulation on room air, but the patient seemed to be a little more dyspneic than even can be fully credited to the desaturation. There is a possibility of an underlying degree of pulmonary fibrosis associated with the chronic obstructive pulmonary disease contributing to a significant dyspneic state. Afebrile. Pulse 100. Blood pressure 154/90. Pulse oximetry 94% on nasal cannula. LUNGS: Markedly diminished breath sounds. HEART: Tones somewhat distant, yet regular. ABDOMEN: Obese, yet soft. Nontender at this time. ASSESSMENT: 1. Chronic obstructive pulmonary disease with acute exacerbation requiring bronchodilators, corticosteroid administration, and respiratory support, showing some slow improvement, yet further rehabilitation suggested. 2. Chronic hypoxia, requiring oxygen for the first time and repeat ambulation studies will be helpful to determine the amount of oxygen required. 3. History of congestive heart failure with chronic pedal edema, probably secondary to a right sided heart failure with cor pulmonale. 4. History of hypertension. 5. Gastroesophageal reflux disease. 6. Chronic tobacco abuse, encouraged to stop completely. 7. Chronic anxiety and depressive symptoms. PLAN: We will request physical therapy as well as respiratory therapy to evaluate for the possibility of Swing Bed rehabilitation in an effort to improve functioning with pulmonary rehab and close monitoring and support. The patient eventually will require oxygen at home, dependent upon the results of upcoming ambulation studies. We will continue the evaluation today and consider Swing Bed status tomorrow if indicated after physical therapy and respiratory therapy evaluation and suggestions. Close observation necessary. We will followup with Derek Kurtz in the clinic when clinically stable. #[id number] [facility]
[2016-06-25] MEDS: BUDESONIDE/FORMOTEROL 160/4.5 60 PUFF/6 GM INH INH SCH (20:18)
[2016-06-25] MEDS: SIMVASTATIN 10 MG TAB PO SCH (20:45)
[2016-06-25] MEDS: TERAZOSIN 1 MG CAP PO SCH (20:45)
[2016-06-26] MEDS: ALBUTEROL SULFATE 2.5 MG/3 ML VIAL NEB PRN (01:17)
[2016-06-26] MEDS: ALBUTEROL SULFATE 2.5 MG/3 ML VIAL NEB SCH ×3 (01:17→10:06)
[2016-06-26] MEDS ORDERED: ALUMINUM & MAGNESIUM HYDROXIDE 30 ML UD PO PRN (01:26)
[2016-06-26] MEDS: IV SET AND CAP CHANGE INJ INJ SCH (04:00)
[2016-06-26] MEDS: SODIUM CHLORIDE 0.9% (FLUSH) 10 ML SYG IV PRN (06:24)
[2016-06-26] MEDS: PANTOPRAZOLE SODIUM IV 40 MG VIAL IV SCH (06:25)
[2016-06-26] MEDS: IPRATROPIUM/ALBUTEROL 3 ML VIAL NEB SCH ×3 (07:15→16:35)
[2016-06-26] MEDS: NON-FORMULARY MEDICATION 1 EA MIS (Umeclidinium Bromide [Incruse Ellipta] 62.5 MCG) IN SCH (07:15)
[2016-06-26] MEDS: BUDESONIDE/FORMOTEROL 160/4.5 60 PUFF/6 GM INH INH SCH (07:15)
[2016-06-26] MEDS: INSULIN LISPRO 100 UNITS/ML PEN SUBCU SCH ×3 (07:37→16:36)
[2016-06-26] MEDS: POTASSIUM CHLORIDE 10 MEQ TAB PO SCH ×2 (08:03→17:47)
[2016-06-26] MEDS: methylPREDNISolone SODIUM SUC 40 MG/ML VIAL IV SCH (08:52)
[2016-06-26] MEDS: ASPIRIN (CHEWABLE) 81 MG TAB PO SCH (08:52)
[2016-06-26] MEDS: CITALOPRAM HBR 20 MG TAB PO SCH (08:52)
[2016-06-26] MEDS: SODIUM CHLORIDE 0.9% (FLUSH) 10 ML SYG IV SCH (08:52)
[2016-06-26] MEDS: guaiFENesin ER TAB 600 MG TAB PO SCH (08:52)
[2016-06-26] MEDS: FUROSEMIDE 40 MG TAB PO SCH (08:52)
[2016-06-26] MEDS ORDERED: levoFLOXacin 500MG IV 100 ML IVPB ONE (11:05)
[2016-06-26] MEDS: levoFLOXacin 500MG IV 500 MG in PREMIX BAG 1 BAG IVPB SCH (11:13)
[2016-06-26 15:04] VITALS: BP 132/75; TEMP 97
[2016-06-26] MEDS: ENOXAPARIN SODIUM 40 MG/0.4 ML SYG SUBCU SCH (16:33)
[2016-06-26] MEDS ORDERED: INFLUENZA VIRUS VACC (ADULT) 0.5 ML SYG IM ONE (16:40)
[2016-06-26 17:24] VITALS: O2SAT 94
--- NOTE | 2016-06-26 20:27 | DS ---
SUPERVISING PHYSICIAN: Venkat Powell M.D. DISCHARGE DIAGNOSIS: 1. Chronic obstructive pulmonary disease with acute exacerbation requiring extensive bronchodilators, corticosteroid administration, and aggressive pulmonary support, showing some improvement, although slowly, requiring further rehabilitation during Swing Bed to increase endurance and pulmonary function. 2. Chronic hypoxia, requiring oxygen for the first time with need for continuation to be further evaluated on Swing Bed. 3. History of congestive heart failure with chronic pedal edema, probably secondary to right sided heart failure with cor pulmonale. 4. History of hypertension. 5. Gastroesophageal reflux disease. 6. Chronic tobacco abuse, encouraged to stop. 7. Chronic anxiety and depressive symptoms. HISTORY OF PRESENT ILLNESS: Mr. Vicente is a 66-year-old, male patient that has a history of chronic obstructive pulmonary disease who presented to the Emergency Department on 06/20/16 with complaint of worsening cough that had been more productive and increase in shortness of breath over the 48 hours prior to his admission. He was previously seen in the last three weeks at the [facility] with Derek Kurtz for an upper respiratory infection and exacerbation of his chronic obstructive pulmonary disease, and was treated with azithromycin and a prednisone tapering regimen. He noted that he had some improvement, but in the last 48 hours prior to admission he started having significant increase in shortness of breath with even minimal exertion and a more productive cough. He had also noted that he had a fever at home prior to coming to the Emergency Department noted to be 101. On presentation to the Emergency Department, the patient did have a fever of 100.5. Pulse 110. Respirations 28. He was significantly short of breath and labored, using accessory muscles and saturating 92% on room air at rest. He initially was given breathing treatments which resulted in some decrease in his respiratory effort, however, he maintained low O2 saturations even on nasal cannula at 2 liters maintaining only 92%. Laboratory studies initially showed white count 9.1, hemoglobin 15.7, hematocrit 47.6 with a left shift. Blood gas analysis showed pH 7.43, PCO2 38, PO2 indicating mild hypoxemia with PO2 of 70 mmHg with carboxyhemoglobin of 2.1. Saturation 95% on nasal cannula at rest at 2 liters. A chest x-ray was completed and per radiology interpretation showed no acute processes. There were no obvious infiltrates or consolidations noted upon admission. The patient having failed to respond to outpatient treatment plan for previous exacerbation of his chronic obstructive pulmonary disease and given the history of his 1 pack of cigarettes a day smoking with worsening symptoms that included fever, productive cough and recent antibiotic therapy in the last 20 days resulted in the patient being admitted to the Medical/Surgical Floor for acute exacerbation of chronic obstructive pulmonary disease. He was admitted in stable condition. LABORATORY: White count on admission was 9.1. He did maximize leukocytosis to 15.1 and at discharge from Acute Care to Swing Bed his white count was 13.9, however he was on corticosteroids parenterally. Differential did show a left shift which was continued through the entire admission. Coagulation studies initially showed PT 12.6 with INR 1.1, PTT 29.0. Blood gas analysis did show pH 7.3 with PCO2 of 38, PO2 of 70 and HCO3 of 24 satting 95% with nasal cannula at 2 liters, carboxyhemoglobin 2.1. Initial chemistries on admission showed a mildly low potassium of 3.5, at time of discharge it had normalized to 3.9, otherwise electrolytes were within normal limits. Initial renal function showed BUN 14, creatinine 1.24. He did show some elevation in his BUN, however creatinine remained fairly stable and at time of discharge BUN 25, creatinine 1.1. Blood sugars ranged from 113 to 225. Urine on admission showed 15 ketones , trace blood with small bilirubin but negative for nitrites or leukocyte esterase. Microscopic exam reveals 3 to 5 RBCs, 5 to 10 WBCs, 1 to 3 epithelials, rare bacteria and a small amount of mucous. MICROBIOLOGY: Sputum culture at 48 hours showed normal lakia. He had blood cultures times 2 that showed no growth at 5 days. He did have a nasal swab for flu by PCR which were both negative for A and B. RADIOLOGY: Initial chest x-ray in the Emergency Department showed no acute cardiopulmonary processes. He did have multiple x-rays through admission and final x-ray on 06/23/16 per radiology interpretation showed emphysematous- appearing lungs with no lobular consolidations or pleural effusions. HOSPITAL COURSE: Mr. Vicente, as noted in the History of Present Illness, is a 66 year-old male that was admitted through the Emergency Department for exacerbation of chronic obstructive pulmonary disease. He was started on aggressive pulmonary hygiene with DuoNeb treatments as well as antibiotics initially included Azithromycin and Ceftriaxone. The patient was also started on Solu-Medrol and due to increasing pulmonary efforts and increasing leukocytosis, he was transitioned to Levaquin. He did show good improvement although slow and on date of discharge was felt well enough to be discharged to continue with strengthening and reconditioning with an extensive length of stay needed for pulmonary rehabilitation prior to discharge to the outpatient setting. PLAN: The patient is discharged from Acute Care on 06/26/16 to be admitted to Swing Bed on 06/26/16 for both noted diagnoses for continuation of rehabilitation in efforts to improve the patient's conditioning and assist with continued rehabilitation in regards to his exacerbation of chronic obstructive pulmonary disease. Condition at discharge was good and he was stable. The patient was discharged and admitted to Swing Bed. #[id number] [facility]
--- NOTE | 2016-07-07 23:57 | RAD ---
PROCEDURE: XR CHEST 1 VIEW HISTORY: sob COMPARISON: None TECHNIQUE: Single projection of the chest was done. FINDINGS: There are underlying changes of COPD . There are no discrete airspace infiltrates, pneumothoraces or pleural effusions. A subcentimeter benign calcified granuloma seen in the right mid lung manuel The pulmonary vascularity is normal. The cardiomediastinal contour is unremarkable . IMPRESSION: There is no acute pleural-parenchymal process seen in the imaged lung manuel. Location of Interpretation: Teleradiology Electronically signed by: Flo Zhou MD 06/19/2016 9:41 PM SEISMOGRAPH SHOOTER
--- NOTE | 2016-07-07 23:58 | RAD ---
EXAM: Two view chest. INDICATION: Chest pain. COMPARISON: Chest x-ray: 06/19/2016. FINDINGS: Cardiac silhouette: Unremarkable. Kayley: Unremarkable. Lobar consolidation: None.Pleural effusion: None.Pneumothorax: None.Other: Lungs are emphysematous Bones: Unremarkable. Other: None. IMPRESSION: Emphysematous appearing lungs Electronically signed by: Houston Cai MD 06/21/2016 6:57 AM SERVER DEVELOPER
--- NOTE | 2016-07-08 00:05 | RAD ---
EXAM: Two view chest. INDICATION: Chest pain. COMPARISON: Chest x-ray: 06/21/2016. FINDINGS: Cardiac silhouette: Unremarkable. Kayley: Unremarkable. Lobar consolidation: None.Pleural effusion: None.Pneumothorax: None.Other: The lungs are emphysematous Bones: Unremarkable. Other: None. IMPRESSION: Emphysematous appearing lungs Electronically signed by: Houston Cai MD 06/23/2016 7:05 AM AND RESCUE FIRE FIGHTER CRASH FIRE
--- NOTE | 2016-07-08 08:28 | RAD ---
EXAM: Two view chest. INDICATION: Chest pain. COMPARISON: Chest x-ray: 06/19/2016. FINDINGS: Cardiac silhouette: Unremarkable. Kayley: Unremarkable. Lobar consolidation: None.Pleural effusion: None.Pneumothorax: None.Other: Lungs are emphysematous Bones: Unremarkable. Other: None. IMPRESSION: Emphysematous appearing lungs Electronically signed by: Houston Cai MD 06/21/2016 6:57 AM TRAVEL CONSULTANT
== END 2016-06-26 18:19 | disposition swing bed (61) | DRG 191 ==
LOC: ER 21:03 → OBSVTOIN 06-20 02:37 → MS 06-20 02:37
PROVIDERS: ADMIT Nurse Practitioner Family; ATTEND Nurse Practitioner Family
DX: J44.1 Chronic obstructive pulmonary disease with (acute) exacerbation (principal); I50.42 Chronic combined systolic (congestive) and diastolic (congestive) heart failure; R09.02 Hypoxemia; I27.81 Cor pulmonale (chronic); I11.0 Hypertensive heart disease with heart failure; G47.33 Obstructive sleep apnea (adult) (pediatric); K21.9 Gastro-esophageal reflux disease without esophagitis; F41.9 Anxiety disorder, unspecified; F32.9 Major depressive disorder, single episode, unspecified; F17.210 Nicotine dependence, cigarettes, uncomplicated; N40.0 Benign prostatic hyperplasia without lower urinary tract symptoms; E66.9 Obesity, unspecified; Z79.51 Long term (current) use of inhaled steroids; Z79.82 Long term (current) use of aspirin; Z79.899 Other long term (current) drug therapy; Z68.34 Body mass index [BMI] 34.0-34.9, adult

== ENCOUNTER 2016-06-26 18:20 | Inpatient (IN) | payer MEDICARE ==
[2016-06-26] MEDS ORDERED: ACETAMINOPHEN 500 MG TAB PO PRN (18:39)
[2016-06-26] MEDS ORDERED: MAGNESIUM HYDROXIDE 30 ML UD PO PRN (18:39)
[2016-06-26] MEDS ORDERED: SODIUM PHOS/BIPHOS ENEMA ADULT 133 ML BTTL PR PRN (18:39)
[2016-06-26] MEDS: IPRATROPIUM/ALBUTEROL 3 ML VIAL INH SCH (19:51)
[2016-06-26] MEDS ORDERED: TERAZOSIN 1 MG CAP PO ONE (20:43)
[2016-06-26] MEDS ORDERED: POTASSIUM CHLORIDE 10 MEQ TAB PO ONE (20:43)
[2016-06-26] MEDS ORDERED: TERAZOSIN HCL 2 MG PO SCH (21:00)
[2016-06-26] MEDS ORDERED: NON-FORMULARY MEDICATION 1 EA MIS (Potassium Chloride [Potassium Chloride Er] 10 MEQ) PO SCH (21:00)
[2016-06-26] MEDS: guaiFENesin ER TAB 600 MG TAB PO SCH (21:11)
[2016-06-26] MEDS: SIMVASTATIN 10 MG TAB PO SCH (21:11)
[2016-06-26] MEDS: TERAZOSIN 1 MG CAP PO SCH (21:50)
--- NOTE | 2016-06-26 23:15 | PCM.CORE ---
Physician DVT/VTE - Nurse DVT Assessment & Total Each Risk Factor Represents 3 Points: Medical PT with Hx of NE, CHF, Severe infection/sepsis Each Risk Factor Represents 2 Points: Age 60-74 Each Risk Factor Represents 1 Point: Hx of smoking past year Each Risk Factor is 1 Point: Obesity (BMI >25), Serious Lung disease (pnemonia < 1month, COPD, emphysema,etc) DVT Assessment Score: 8 - 5 or more Very High Risk Treatments: Early Ambulation *, Sequential Compression Device Pharmacological: Enoxaparin 40mg SQ Daily
[2016-06-27] MEDS: ALBUTEROL SULFATE 2.5 MG/3 ML VIAL NEB PRN (00:45)
[2016-06-27] MEDS ORDERED: NON-FORMULARY MEDICATION 1 EA MIS (Budesonide-Formoterol Fumarate [Symbicort 160-4.5 Mcg/A INH SCH (06:00)
[2016-06-27] MEDS ORDERED: OMEPRAZOLE CAP 20 MG CAP PO SCH (07:00)
[2016-06-27] MEDS ORDERED: levoFLOXacin 500 MG TAB ONE (07:18)
[2016-06-27] MEDS ORDERED: ASPIRIN (CHEWABLE) 81 MG TAB ONE (07:18)
[2016-06-27] MEDS ORDERED: CITALOPRAM HBR 20 MG TAB ONE (07:18)
[2016-06-27] MEDS ORDERED: FUROSEMIDE 40 MG TAB ONE (07:19)
[2016-06-27] MEDS ORDERED: ENOXAPARIN SODIUM 40 MG/0.4 ML SYG SUBCU ONE (07:19)
[2016-06-27] MEDS ORDERED: predniSONE 20 MG TAB ONE (07:19)
[2016-06-27] MEDS ORDERED: DOCUSATE SODIUM 100 MG CAP ONE (07:19)
[2016-06-27] MEDS: POTASSIUM CHLORIDE 10 MEQ TAB PO SCH ×2 (07:21→17:00)
--- NOTE | 2016-06-27 07:35 | RAD ---
EXAM DESCRIPTION: XR CHEST 2 VIEWS CLINICAL HISTORY: COPD COMPARISON: 06/23/2016 TECHNIQUE: Two-views of the chest. FINDINGS: Heart size is normal. Hyperinflation. Stable small granuloma right lung. Lungs are clear. No acute osseous injury. IMPRESSION: No acute chest process. COPD Electronically signed by: Venkat Doshi MD 06/27/2016 07:33
[2016-06-27] MEDS: IPRATROPIUM/ALBUTEROL 3 ML VIAL INH SCH ×4 (08:09→20:00)
--- NOTE | 2016-06-27 08:09 | HP ---
SUPERVISING PHYSICIAN: Carmen Powell MD HISTORY OF PRESENT ILLNESS: Mr. Vicente is a 66-year-old, male patient who has a significant history of chronic obstructive pulmonary disease who initially presented to the Emergency Department on 06/20/16 with complaint of worsening cough that had been more productive with increasing shortness of breath 48 hours prior to his admission. He was previously seen three weeks prior at [facility] by Derek Kurtz, nurse practitioner, for an upper respiratory infection and exacerbation of chronic obstructive pulmonary disease. At that time, he was treated with azithromycin and a prednisone tapering regimen. He noted he had had some improvement, but in the last 48 hours prior to admission, he started having significant increasing shortness of breath with even minimal exertional effort and he was having more productive sputum. It was also noted he had had a fever at home prior to coming to the Emergency Department, subjectively reported at 101. On presentation to the Emergency Department, the patient did have a fever of 100.5, pulse 110, respirations 28. He was significantly short of breath and labored, using accessory muscles. Saturation was 92% on room air at rest. He initially was given breathing treatments in the Emergency Department which resulted in some decrease in shortness of breath, however, maintained low O2 saturation even with nasal cannula at 2 liters at only 92%. Initial laboratory studies showed a normal white count of 9.1. Blood gas analysis showed pH 7.43, PCO2 38, PO2 indicating mild hypoxemia with a PAO2 of 70 mmHg with carboxyhemoglobin 2.1. Chest x-ray was completed and per radiology interpretation showed no acute processes. However, the patient was having significant respiratory distress and had an exacerbation of his chronic obstructive pulmonary disease having been previously treated with antibiotics and steroids and given he has a history of one pack of cigarettes a day smoker with current, he was admitted to the Medical/Surgical Floor for treatment of his exacerbation of chronic obstructive pulmonary disease. He progressed slowly through his acute care setting, but was felt clinically stable enough to be discharged in regards to an exacerbation of his chronic obstructive pulmonary disease, but was showing significant deconditioning, therefore, he was admitted to Swing Bed for physical therapy and reconditioning. PAST MEDICAL HISTORY: 1. Chronic obstructive pulmonary disease with a recent exacerbation. 2. Hypertension. 3. Benign prostatic hypertrophy. 4. Congestive heart failure with peripheral edema. His last echocardiogram was in 2015 per the patient, but no current records for review. 5. Chronic tobacco use, anywhere from half to one pack of cigarettes per day. 6. Depression and anxiety. PAST SURGICAL HISTORY: 1. Left ankle fracture requiring open reduction in 1979. 2. Appendectomy at age 21. 3. Tonsillectomy as a child. HOME MEDICATIONS: Please refer to updated electronic medical record for list of medications. ALLERGIES: NO KNOWN DRUG ALLERGIES. FAMILY HISTORY: Significant for chronic obstructive pulmonary disease, lung cancer, and cardiovascular disease. SOCIAL HISTORY: The patient is disabled. He lives in [place] and is . He has a history of smoking tobacco for over 50 years. He ranges from one to three packs per day. He currently is smoking. He denies any alcohol or illicit drug use. PHYSICAL EXAMINATION: VITAL SIGNS: Temperature 98.6. Pulse 86. Blood pressure 135/79. Respirations 14. O2 saturation 96% on nasal cannula at 2 liters at rest. Admission weight 126.9 kg. GENERAL: The patient is resting, appears to be in no acute distress. He is alert. HEENT: Tympanic membranes are partially occluded with cerumen bilaterally. Oropharynx is pink, moist without any lesions. NECK: No jugular venous distention noted. CHEST: Lungs are essentially clear, just diminished bilaterally towards the bases. No wheezing or rhonchi heard. CARDIOVASCULAR: Regular rate and rhythm without any appreciable murmurs, gallops, or rubs. ABDOMEN: Obese, but soft, nontender. Positive bowel sounds. EXTREMITIES: There is no cyanosis, clubbing or notable edema. NEUROLOGIC: The patient is alert and oriented times three. Facial features are symmetrical. Extraocular movements are within normal limits. There is no nystagmus noted. There are no obvious neuromotor deficits. LABORATORY: CBC, CMP, urinalysis pending. RADIOLOGY: Chest x-ray pending. ASSESSMENT: 1. Chronic obstructive pulmonary disease with acute exacerbation requiring extensive bronchodilators, corticosteroid administration, and aggressive pulmonary support on Acute Care, showing improvement, although slowly, now requiring rehabilitation and Swing Bed admission to increase endurance and pulmonary function. 2. Chronic hypoxia, requiring oxygen for the first time with need for continuation and be further evaluated on Swing Bed. 3. History of congestive heart failure with chronic pedal edema, probably secondary to right sided heart failure with cor pulmonale. 4. History of hypertension. 5. Gastroesophageal reflux disease. 6. Chronic tobacco abuse, encouraged to stop. 7. Chronic anxiety and depressive symptoms. PLAN: The patient was discharged from Acute Care on 06/26/16 and admitted to Swing Bed the same date for exacerbation of his chronic obstructive pulmonary disease as noted above for continuation of rehabilitation per physical therapy and reconditioning to ensure that the patient is able to improve pulmonary function as well as safe at time of discharge. We will continue to monitor the patient in conjunction with physical therapy. Anticipate length of stay to be three to five days. Until then, we will continue to monitor the patient closely. When discharged, he will need close followup with primary care provider, Derek Kurtz, nurse practitioner, in [facility]. He was admitted in stable condition. #[id number] [facility]
[2016-06-27] MEDS: BUDESONIDE/FORMOTEROL 160/4.5 60 PUFF/6 GM INH INH SCH ×2 (08:53→20:00)
[2016-06-27] MEDS ORDERED: predniSONE 20 MG TAB PO SCH (09:00)
[2016-06-27] MEDS: levoFLOXacin 500 MG TAB PO SCH (09:02)
[2016-06-27] MEDS: FUROSEMIDE 40 MG TAB PO SCH (09:02)
[2016-06-27] MEDS: ASPIRIN (CHEWABLE) 81 MG TAB PO SCH (09:02)
[2016-06-27] MEDS: DOCUSATE SODIUM 100 MG CAP PO SCH (09:02)
[2016-06-27] MEDS: ENOXAPARIN SODIUM 40 MG/0.4 ML SYG SUBCU SCH (09:02)
[2016-06-27] MEDS: CITALOPRAM HBR 20 MG TAB PO SCH (09:02)
[2016-06-27] MEDS: guaiFENesin ER TAB 600 MG TAB PO SCH (09:02)
[2016-06-27] MEDS ORDERED: OMEPRAZOLE CAP 20 MG CAP ONE (20:52)
[2016-06-28] MEDS: OMEPRAZOLE CAP 20 MG CAP PO SCH (06:30)
[2016-06-28] MEDS: POTASSIUM CHLORIDE 10 MEQ TAB PO SCH ×2 (08:03→17:25)
[2016-06-28] MEDS: IPRATROPIUM/ALBUTEROL 3 ML VIAL INH SCH ×4 (08:18→20:31)
[2016-06-28] MEDS: BUDESONIDE/FORMOTEROL 160/4.5 60 PUFF/6 GM INH INH SCH ×2 (08:18→20:31)
[2016-06-28] MEDS: levoFLOXacin 500 MG TAB PO SCH (09:23)
[2016-06-28] MEDS: CITALOPRAM HBR 20 MG TAB PO SCH (09:23)
[2016-06-28] MEDS: DOCUSATE SODIUM 100 MG CAP PO SCH (09:23)
[2016-06-28] MEDS: predniSONE 20 MG TAB PO SCH (09:23)
[2016-06-28] MEDS: ASPIRIN (CHEWABLE) 81 MG TAB PO SCH (09:24)
[2016-06-28] MEDS: guaiFENesin ER TAB 600 MG TAB PO SCH ×3 (09:24→20:25)
[2016-06-28] MEDS: FUROSEMIDE 40 MG TAB PO SCH (09:24)
[2016-06-28] MEDS: ENOXAPARIN SODIUM 40 MG/0.4 ML SYG SUBCU SCH (09:25)
[2016-06-28] MEDS: NON-FORMULARY MEDICATION 1 EA MIS (Umeclidinium Bromide [Incruse Ellipta] 62.5 MCG) IN SCH ×2 (20:04→20:26)
[2016-06-28] MEDS: SIMVASTATIN 10 MG TAB PO SCH ×2 (20:04→20:25)
[2016-06-28] MEDS: TERAZOSIN 1 MG CAP PO SCH ×2 (20:04→20:24)
--- NOTE | 2016-06-28 21:11 | PN ---
DATE: 06/28/16 SUPERVISING PHYSICIAN: Kenji Russell M.D. SUBJECTIVE: The patient is doing well. He progresses well with his physical therapy and improves daily. He continues to wear CPAP as needed. OBJECTIVE: Vital signs remain stable. Pulse 96, blood pressure 142/87, respirations showing 18, 96% on nasal cannula SPO2. I's and O's were balanced. GENERAL: The patient appears to be doing well in no acute distress. CHEST: Lungs are much better in regards to aeration bilaterally, although diminished towards the bases. There is no wheezing or rhonchi. HEART: Regular rate and rhythm. ABDOMEN: Obese but soft, non-tender. Positive bowel sounds. EXTREMITIES: No clubbing or edema. NEUROLOGIC: He is alert and oriented times three. LABORATORY: On admission to Swing Bed showed white count 15.3. The patient continues on prednisone 20 mg daily having finished a multi dose over several days with Solu-Medrol. Hemoglobin and hematocrit are stable at 15.5 and 46.3, platelet count 266,000. Differential continues to show a left shift. Chemistries show normal electrolytes with BUN 27, creatinine 0.97. Liver functions show within normal limits except for an elevated ALT of 125. Urinalysis showed to be within normal limits. RADIOLOGY: Chest x-ray on admission to [facility] showed no acute process, chronic obstructive pulmonary disease noted per radiology interpretation. ASSESSMENT: 1. Chronic obstructive pulmonary disease with a recent acute exacerbation requiring extensive bronchodilators, corticosteroid administration and aggressive pulmonary hygiene on Acute Care showing improvement, although continuing to show deconditioning, therefore requiring rehabilitation on Swing Bed admission to increase endurance and pulmonary function. 2. Chronic hypoxia requiring oxygen for the first time with the need for continuation and further evaluation to be done on Swing Bed. 3. History of congestive heart failure with chronic pedal edema secondary to right sided heart failure with cor pulmonale showing to be stable. 4. History of hypertension. 5. Gastroesophageal reflux disease. 6. Chronic tobacco abuse encouraged to stop smoking. 7. Chronic anxiety and depression disorder. PLAN: The patient will continue on Swing Bed for reconditioning. Will follow the patient closely with Physical Therapy and discharge the patient once Physical Therapy feels he is safe to discharge home. The patient will currently continue with breathing treatments and prednisone and Levaquin. Levaquin regimen should be completed on 06/30/16 after 3 days. Until discharge , will continue to follow the patient closely and treat appropriately. [facility][id number] [facility]
[2016-06-29] MEDS: OMEPRAZOLE CAP 20 MG CAP PO SCH (05:45)
[2016-06-29] MEDS: IPRATROPIUM/ALBUTEROL 3 ML VIAL INH SCH ×4 (07:45→20:25)
[2016-06-29] MEDS: BUDESONIDE/FORMOTEROL 160/4.5 60 PUFF/6 GM INH INH SCH ×2 (07:45→20:26)
[2016-06-29] MEDS: POTASSIUM CHLORIDE 10 MEQ TAB PO SCH ×2 (08:03→17:08)
[2016-06-29] MEDS: levoFLOXacin 500 MG TAB PO SCH (09:38)
[2016-06-29] MEDS: ENOXAPARIN SODIUM 40 MG/0.4 ML SYG SUBCU SCH (09:38)
[2016-06-29] MEDS: guaiFENesin ER TAB 600 MG TAB PO SCH ×2 (09:38→21:25)
[2016-06-29] MEDS: ASPIRIN (CHEWABLE) 81 MG TAB PO SCH (09:38)
[2016-06-29] MEDS: DOCUSATE SODIUM 100 MG CAP PO SCH (09:38)
[2016-06-29] MEDS: FUROSEMIDE 40 MG TAB PO SCH (09:38)
[2016-06-29] MEDS: CITALOPRAM HBR 20 MG TAB PO SCH (09:38)
[2016-06-29] MEDS: predniSONE 20 MG TAB PO SCH (09:38)
[2016-06-29] MEDS: TERAZOSIN 1 MG CAP PO SCH (21:25)
[2016-06-29] MEDS: SIMVASTATIN 10 MG TAB PO SCH (21:25)
[2016-06-30] MEDS: ALBUTEROL SULFATE 2.5 MG/3 ML VIAL NEB PRN (03:18)
[2016-06-30] MEDS: OMEPRAZOLE CAP 20 MG CAP PO SCH (06:01)
[2016-06-30] MEDS: POTASSIUM CHLORIDE 10 MEQ TAB PO SCH ×2 (07:43→16:42)
[2016-06-30] MEDS: BUDESONIDE/FORMOTEROL 160/4.5 60 PUFF/6 GM INH INH SCH ×3 (08:25→19:41)
[2016-06-30] MEDS: NON-FORMULARY MEDICATION 1 EA MIS (Umeclidinium Bromide [Incruse Ellipta] 62.5 MCG) IN SCH ×3 (08:25→14:31)
[2016-06-30] MEDS: IPRATROPIUM/ALBUTEROL 3 ML VIAL INH SCH ×4 (08:25→19:38)
[2016-06-30] MEDS: DOCUSATE SODIUM 100 MG CAP PO SCH (08:42)
[2016-06-30] MEDS: ASPIRIN (CHEWABLE) 81 MG TAB PO SCH (08:42)
[2016-06-30] MEDS: predniSONE 20 MG TAB PO SCH (08:42)
[2016-06-30] MEDS: FUROSEMIDE 40 MG TAB PO SCH (08:42)
[2016-06-30] MEDS: guaiFENesin ER TAB 600 MG TAB PO SCH ×2 (08:43→21:42)
[2016-06-30] MEDS: CITALOPRAM HBR 20 MG TAB PO SCH (08:43)
[2016-06-30] MEDS: ENOXAPARIN SODIUM 40 MG/0.4 ML SYG SUBCU SCH (08:45)
[2016-06-30] MEDS: NYSTATIN SUSPENSION 5 ML UD MT SCH ×2 (16:43→21:42)
--- NOTE | 2016-06-30 21:13 | PN ---
DATE: 06/30/16 SUPERVISING PHYSICIAN: Kenji Russell M.D. SUBJECTIVE: The patient continues to do well in regards to his respiratory effort. He is ambulating without oxygen. He continues to wear his CPAP as needed, especially at night. He remains afebrile. He does note that he has developed some whitish plaque on his tongue which is most likely thrush which is making it difficult for the patient to eat adequately in regards to his caloric intake. Will plan to start him on some Nystatin swish and swallow. OBJECTIVE: Vital signs remain stable, pulse 95, respirations 20, blood pressure 122/74, O2 sat was 95% on nasal cannula at rest. I's and O's are showing a negative balance of 2045 with 2280 in, 4325 out. GENERAL: The patient actually has been ambulating in the hallway utilizing his oxygen with assistance of nursing and is doing well. Appears to be in no distress at time of ambulation. CHEST: Lungs continue to show better aeration bilaterally with just some continued wheezing throughout. Very faint inspiratory wheezing. HEART: Regular rate and rhythm. ABDOMEN: Obese but soft, non-tender. Positive bowel sounds. EXTREMITIES: No clubbing, cyanosis or edema. NEUROLOGIC: He is alert and oriented times three. LABORATORY AND RADIOLOGY: Were not repeated today. ASSESSMENT: 1. Chronic obstructive pulmonary disease with a recent acute exacerbation requiring extensive bronchodilators, corticosteroid administration and aggressive pulmonary hygiene on Acute Care showing improvement although continuing to show deconditioning, therefore requiring rehabilitation on Swing Bed admission to increase endurance and pulmonary function with anticipation of discharge within the next 2 to 3 days as the patient is improving. 2. Chronic hypoxia requiring oxygen for the first time and will need continuation prior to discharge. Ambulatory studies will need to be completed. 3. History of congestive heart failure with chronic pedal edema secondary to right sided heart failure with cor pulmonale showing to be stable. 4. History of hypertension. 5. Gastroesophageal reflux disease. 6. Chronic tobacco abuse, encouraged to stop smoking. 7. Chronic anxiety disorder. PLAN: The patient will continue with his physical therapy and conditioning under the guidance of Physical Therapy. Will continue to monitor the patient closely in regards to his respiratory efforts and plan to assess oxygen need once discharged. His Levaquin should be completed today on day 06/30/16 and he will continue on prednisone. Until discharge, he will be followed closely and treated appropriately. #[id number] [facility]
[2016-06-30] MEDS: SIMVASTATIN 10 MG TAB PO SCH (21:42)
[2016-06-30] MEDS: TERAZOSIN 1 MG CAP PO SCH (21:42)
[2016-07-01] MEDS: OMEPRAZOLE CAP 20 MG CAP PO SCH (06:40)
[2016-07-01] MEDS: IPRATROPIUM/ALBUTEROL 3 ML VIAL INH SCH ×2 (07:30→11:25)
[2016-07-01] MEDS: BUDESONIDE/FORMOTEROL 160/4.5 60 PUFF/6 GM INH INH SCH (07:45)
[2016-07-01] MEDS: NON-FORMULARY MEDICATION 1 EA MIS (Umeclidinium Bromide [Incruse Ellipta] 62.5 MCG) IN SCH (07:47)
[2016-07-01] MEDS: POTASSIUM CHLORIDE 10 MEQ TAB PO SCH (08:00)
[2016-07-01] MEDS: NYSTATIN SUSPENSION 5 ML UD MT SCH ×2 (09:30→13:30)
[2016-07-01] MEDS: FUROSEMIDE 40 MG TAB PO SCH (09:40)
[2016-07-01] MEDS: DOCUSATE SODIUM 100 MG CAP PO SCH (09:40)
[2016-07-01] MEDS: ASPIRIN (CHEWABLE) 81 MG TAB PO SCH (09:41)
[2016-07-01] MEDS: predniSONE 20 MG TAB PO SCH (09:41)
[2016-07-01] MEDS: CITALOPRAM HBR 20 MG TAB PO SCH (09:41)
[2016-07-01] MEDS: ENOXAPARIN SODIUM 40 MG/0.4 ML SYG SUBCU SCH (09:41)
[2016-07-01] MEDS: guaiFENesin ER TAB 600 MG TAB PO SCH (09:41)
[2016-07-01 11:04] VITALS: BP 130/83; TEMP 98.2
[2016-07-01 15:24] VITALS: O2SAT 97
[2016-07-02] MEDS ORDERED: LISINOPRIL 5 MG TAB PO SCH (09:00)
--- NOTE | 2016-07-02 10:44 | DS ---
SUPERVISING PHYSICIAN: Carmen Powell MD DISCHARGE DIAGNOSIS: 1. Chronic obstructive pulmonary disease with a recent acute exacerbation requiring extensive bronchodilators, corticosteroid administration, and aggressive pulmonary support on Acute Care, having shown improvement through admission resulting in significant deconditioning requiring rehabilitation on Swing Bed admission to increase endurance and pulmonary function. 2. Chronic hypoxia, requiring oxygen for the first time with need for continuation at time of discharge per ambulatory studies. 3. History of congestive heart failure with chronic pedal edema, secondary to right sided heart failure with cor pulmonale component, stable. 4. History of hypertension. 5. Gastroesophageal reflux disease. 6. Chronic tobacco abuse, encouraged to stop smoking. 7. Chronic anxiety disorder. HISTORY OF PRESENT ILLNESS: Mr. Vicente is a 66-year-old, male patient who has a significant history of chronic obstructive pulmonary disease who initially presented to the Emergency Department on 06/20/16 with complaint of worsening cough that had been more productive with increasing shortness of breath 48 hours prior to his admission. He was previously seen three weeks prior at [facility] by Derek Kurtz, nurse practitioner, for an upper respiratory infection and exacerbation of chronic obstructive pulmonary disease. At that time, he was treated with azithromycin and a prednisone tapering regimen. He noted he had had some improvement, but in the last 48 hours prior to admission, he started having significant increasing shortness of breath with even minimal exertional effort and he was having more productive sputum. It was also noted he had had a fever at home prior to coming to the Emergency Department, subjectively reported at 101. On presentation to the Emergency Department, the patient did have a fever of 100.5, pulse 110, respirations 28. He was significantly short of breath and labored, using accessory muscles. Saturation was 92% on room air at rest. He initially was given breathing treatments in the Emergency Department which resulted in some decrease in shortness of breath, however, maintained low O2 saturation even with nasal cannula at 2 liters at only 92%. Initial laboratory studies showed a normal white count of 9.1. Blood gas analysis showed pH 7.43, PCO2 38, PO2 indicating mild hypoxemia with a PAO2 of 70 mmHg with carboxyhemoglobin 2.1. Chest x-ray was completed and per radiology interpretation showed no acute processes. However, the patient was having significant respiratory distress and had an exacerbation of his chronic obstructive pulmonary disease having been previously treated with antibiotics and steroids and given he has a history of one pack of cigarettes a day smoker with current, he was admitted to the Medical/Surgical Floor for treatment of his exacerbation of chronic obstructive pulmonary disease. He progressed slowly through his acute care setting, but on discharge was felt clinically stable enough to be discharged in regards to an exacerbation of his chronic obstructive pulmonary disease, but was showing significant deconditioning, therefore, he was admitted to Swing Bed for physical therapy and reconditioning. LABORATORY: Laboratory on admission to Swing Bed showed a white count of 15.3. He was on corticosteroid at that time and did show a left shift, but hemoglobin and hematocrit were stable at 15.5 and 46.3. Chemistries on admission did show carbon dioxide 33, otherwise electrolytes were within normal limits. Potassium was 4.1, BUN 27, creatinine 0.97. Liver functions were all within normal limits except for an elevated ALT that was 125. Urinalysis was within normal limits. RADIOLOGY: Chest x-ray on admission showed no acute chest processes other than chronic obstructive pulmonary disease per radiology interpretation. HOSPITAL COURSE: Mr. Vicente was admitted to Swing Bed as noted in history of present illness. He worked with physical therapy and continued to progress well daily and was felt on date of discharge well enough to be discharged to continue with physical therapy at home and to followup with his primary care provider as instructed. The patient was continued on prednisone. He finished his antibiotics. He developed a little problem with thrush which was treated with Nystatin. PLAN: Mr. Vicente was discharged on 07/01/16 with new prescriptions includin. Lisinopril 5 mg daily, #30. 2. Nystatin 1 bottle 100,000 units per mL, 5 mL q.i.d. as directed for at least 7 days, sooner if improving continue for additional 24 hours and then stop. 3. Prednisone tapering pack 10 mg tablets, 4 mg x1 day, 3 mg x1 day, then 2 tablets x1 day, then 1 tablet daily until gone. He was highly encouraged to stop smoking and given information to assist with this and followup with Derek Kurtz in efforts to continue with his smoking cessation. He was told to continue with a diet that was low in salt and low fat. He was told to monitor his weight closely at minimum every other day, preferably daily, and to note if he had any significant change such as greater than 3 pounds in 24 hours to call his Derek Kurzt or go the Emergency Room for evaluation should he have any shortness of breath. He did have home oxygen made available with a concentrator as well as portable and was to wear 2 liter nasal cannula at all times. He was encouraged to continue with pulmonary hygiene and increase his activity daily and wear his CPAP at night as directed. He was discharged in stable condition with new prescriptions as above. He was discharged in good and stable condition. #[id number] [facility]
== END 2016-07-01 16:15 | disposition home or self-care (01) | DRG 191 ==
LOC: MS 18:20 → UNDOADMIN 18:24 → MS 18:24
PROVIDERS: ADMIT Nurse Practitioner Family; ATTEND Nurse Practitioner Family
DX: J44.1 Chronic obstructive pulmonary disease with (acute) exacerbation (principal); B37.0 Candidal stomatitis; R09.02 Hypoxemia; I11.0 Hypertensive heart disease with heart failure; I50.9 Heart failure, unspecified; I27.81 Cor pulmonale (chronic); K21.9 Gastro-esophageal reflux disease without esophagitis; F41.9 Anxiety disorder, unspecified; F17.210 Nicotine dependence, cigarettes, uncomplicated; N40.0 Benign prostatic hyperplasia without lower urinary tract symptoms; F32.9 Major depressive disorder, single episode, unspecified; E66.9 Obesity, unspecified; Z68.34 Body mass index [BMI] 34.0-34.9, adult

== ENCOUNTER → 2016-07-09 | Outpatient (CLI) | payer MEDICARE ==
--- NOTE | 2016-07-09 17:09 | US ---
EXAM DESCRIPTION: Carotid Duplex CLINICAL HISTORY: CAROTID BRUIT COMPARISON: None Available. TECHNIQUE: Carotid Doppler ultrasound FINDINGS: Minimal calcific atherosclerotic disease is observed in the region of the carotid bifurcation. No acceleration flow is observed in either carotid system. Antegrade flow is seen in both vertebral arteries. IMPRESSION: No hemodynamically significant stenosis is detected. Electronically signed by: Earl Garza MD 07/09/2016 5:09 PM OUTDOOR FITNESS TRAINER
== END | disposition home or self-care (01) ==
LOC: US 11:50
PROVIDERS: ATTEND Nurse Practitioner Family
DX: R09.89 Other specified symptoms and signs involving the circulatory and respiratory systems (principal)

== ENCOUNTER → 2016-12-04 | Outpatient (CLI) | payer MEDICARE | END | disposition home or self-care (01) | LOC: LAB 07:33 | PROVIDERS: ATTEND Nurse Practitioner Family | DX: I50.9 Heart failure, unspecified (principal) ==

== ENCOUNTER → 2017-04-22 | Outpatient (CLI) | payer MEDICARE | END | disposition home or self-care (01) | LOC: LAB.O 14:44 | PROVIDERS: ATTEND Nurse Practitioner Family | DX: I10 Essential (primary) hypertension (principal) ==

== ENCOUNTER 2017-04-23 19:35 | Emergency (ER) | payer MEDICARE ==
--- NOTE | 2017-04-23 20:38 | ED.PDOC ---
History of Present Illness - General Chief Complaint: Respiratory Problem Stated Complaint: SOB Time Seen by Provider: 04/23/17 20:33 Source: patient Exam Limitations: no limitations - History of Present Illness Initial Comments: Venkat Timing/Duration: getting worse, other - 2 days Severity: moderate Activities at Onset: rest Possible Cause: occasional episodes Improving Factors: nothing Worsening Factors: nothing Associated Symptoms: cough, wheezing Respiratory Risk Factors: other - copd Allergies/Adverse Reactions: Allergies NO KNOWN ALLERGY Allergy (Verified 04/23/17 20:01) Home Medications: Ambulatory Orders RX: Aspirin [Baby Aspirin] 81 mg PO DAILY 04/21/14 RX: Budesonide-Formoterol Fumarate [Symbicort 160-4.5 Mcg/Act] 2 puff INH 0600, 1800 04/21/14 RX: Terazosin HCl 2 mg PO BEDTIME 04/21/14 RX: Furosemide 40 mg PO QAM #30 tab 08/26/14 RX: Omeprazole [Prilosec Cap] 20 mg PO ACBK #30 cap 08/26/14 RX: Acetaminophen W/ Codeine [Tylenol w/Codeine 300-30 mg] 1 tab PO Q4HR PRN # 30 tab 12/24/15 RX: Citalopram Hydrobromide [Celexa] 20 mg PO DAILY 12/24/15 RX: Umeclidinium [place] [Incruse Ellipta] 62.5 mcg IN DAILY 12/24/15 RX: Albuterol Sulfate Nebs [Proventil Nebs] 0.083 % INH Q4HR PRN 06/20/16 RX: Furosemide 40 mg PO 1200 PRN 06/20/16 RX: Potassium Chloride [Potassium Chloride ER] 10 meq PO BID 06/20/16 RX: Simvastatin 10 mg PO BEDTIME 06/20/16 RX: Lisinopril 5 mg PO DAILY #30 tab 07/01/16 RX: Nystatin (Mouth-Throat) [Nystatin] 5 ml MT QID #1 bottle 07/01/16 predniSONE [Prednisone] 0 mg PO DAILY #12 tab 07/01/16 Benzonatate Perles [Tessalon Perles] 200 mg PO TID #30 cap 04/24/17 RX: predniSONE 10 mg PO BID #14 tab 04/24/17 Review of Systems - Review of Systems Constitutional: States: no symptoms reported EENTM: States: nose congestion Respiratory: States: see HPI Cardiology: States: no symptoms reported Gastrointestinal/Abdominal: States: no symptoms reported Genitourinary: States: no symptoms reported Musculoskeletal: States: no symptoms reported Skin: States: no symptoms reported Neurological: States: no symptoms reported Past Medical History (General) - Patient Medical History Hx Seizures: No Hx Stroke: No Hx Dementia: No Hx Asthma: No Hx of COPD: Yes Hx Cardiac Disorders: Yes Hx Congestive Heart Failure: Yes Hx Pacemaker: No Hx Hypertension: Yes Hx Thyroid Disease: No Hx Diabetes: No Hx Gastroesophageal Reflux: No Hx Renal Disease: No Hx Cancer: No Hx of HIV: No Hx Hepatitis C: No Hx MRSA: No Surgical History: appendectomy, other - TURP,orif left ankle - Vaccination History Hx Tetanus, Diphtheria Vaccination: No Hx Influenza Vaccination: Yes Hx Pneumococcal Vaccination: Yes - Social History Hx Tobacco Use: Yes Hx Alcohol Use: No Hx Substance Use: No Hx Substance Use Treatment: No Hx Depression: No Hx Physical Abuse: No Hx Emotional Abuse: No - Female History Patient : No - Triage Comment ED Triage Comment: 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 Family Medical History - Family History Father Family History: Unknown Living Status: Cause of : lung cancer Hx Family Hypertension: Yes Hx Cardiac Disease: Yes Age of Onset (years of age): NH Hx Family Cancer: Yes - lung-dad; Hx Family;Other: SEIZURES Mother Family History: Unknown Living Status: Hx Family Hypertension: Yes Hx Cardiac Disease: Yes Hx Family Cancer: Yes - skin Physical Exam - Physical Exam General Appearance: Alert, Anxious, No apparent distress Eyes, Ears, Nose, Throat Exam: TMs normal, pharynx normal, other - nasal congestion right >left Neck: non-tender, full range of motion, supple Respiratory: chest non-tender, decreased breath sounds Cardiovascular/Chest: normal peripheral pulses, regular rate, rhythm, no gallop , no murmur Peripheral Pulses: radial,right: 2+, radial,left: 2+ Gastrointestinal/Abdominal: non tender, soft, no organomegaly Extremity: normal range of motion, non-tender, no calf tenderness, pedal edema - +1 pedal edema Neurologic: no motor/sensory deficits, alert, oriented x 3 Skin Exam: normal color, warm/dry Lymphatic: no adenopathy Progress - Progress Progress: 04/23/17 23:59 Last Vital Signs Temp 98.6 F 04/23/17 20:04 Pulse 104 H 04/23/17 21:04 Resp 22 04/23/17 21:04 BP 139/80 04/23/17 20:04 Pulse Ox 94 L 04/23/17 21:04 - Results/Orders Results/Orders: Laboratory Tests 04/23/17 04/23/17 04/23/17 20:47 20:47 20:47 WBC 11.5 H RBC 6.46 H Hgb 18.4 H Hct 54.6 H MCV 84.5 MCH 28.4 MCHC 33.6 RDW 13.4 Plt Count 293 MPV 9.0 Absolute Neuts (auto) 8.90 H Absolute Lymphs (auto) 1.40 Absolute Monos (auto) 1.00 H Absolute Eos (auto) 0.20 Absolute Basos (auto) 0.10 Neutrophils % 77.3 Lymphocytes % 11.8 L Monocytes % 8.5 Eosinophils % 1.7 Basophils % 0.7 D-Dimer, Quantitative < 230 Sodium 138 Potassium 3.9 Chloride 105 Carbon Dioxide 24 Anion Gap 12.9 BUN 21 H Creatinine 1.21 BUN/Creatinine Ratio 17.4 Random Glucose 129 H Serum Osmolality 280.3 Calcium 9.3 Total Bilirubin 0.4 AST 17 ALT 27 Alkaline Phosphatase 67 Troponin I B-Natriuretic Peptide 16.9 Serum Total Protein 7.7 Albumin 4.6 Globulin 3.1 Albumin/Globulin Ratio 1.5 04/23/17 20:47 WBC RBC Hgb Hct MCV MCH MCHC RDW Plt Count MPV Absolute Neuts (auto) Absolute Lymphs (auto) Absolute Monos (auto) Absolute Eos (auto) Absolute Basos (auto) Neutrophils % Lymphocytes % Monocytes % Eosinophils % Basophils % D-Dimer, Quantitative Sodium Potassium Chloride Carbon Dioxide Anion Gap BUN Creatinine BUN/Creatinine Ratio Random Glucose Serum Osmolality Calcium Total Bilirubin AST ALT Alkaline Phosphatase Troponin I < 0.02 B-Natriuretic Peptide Serum Total Protein Albumin Globulin Albumin/Globulin Ratio - EKG/XRAY/CT EKG: Sinus, Tachy, nonspecific ST T wave Chg - inferior leads Comments: HR-113;biatrial enlargement XRAY: chest - no acute abnormality Departure - Departure Clinical Impression: Dyspnea Qualifiers: Dyspnea type: unspecified Qualified Code(s): R06.00 - Dyspnea, unspecified Reactive airway disease with wheezing with acute exacerbation Qualifiers: Asthma severity: mild intermittent Qualified Code(s): J45.21 - Mild intermittent asthma with (acute) exacerbation Time of Disposition: 00:19 Disposition: Discharge to Home or Self Care Condition: Good Departure Forms: ED Discharge - Pt. Copy, Patient Portal Self Enrollment Instructions: DI for Reactive Airway Disease-Adult, Reactive Airway Disease- Adult Referrals: CAMILLE JAMES IV CLIENT EVALUATOR [Primary Care Provider] - 1-2 Weeks Prescriptions: Benzonatate Perles [Tessalon Perles] 200 mg PO TID #30 cap RX: predniSONE 10 mg PO BID #14 tab Home Medications: Ambulatory Orders RX: Aspirin [Baby Aspirin] 81 mg PO DAILY 04/21/14 RX: Budesonide-Formoterol Fumarate [Symbicort 160-4.5 Mcg/Act] 2 puff INH 0600, 1800 04/21/14 RX: Terazosin HCl 2 mg PO BEDTIME 04/21/14 RX: Furosemide 40 mg PO QAM #30 tab 08/26/14 RX: Omeprazole [Prilosec Cap] 20 mg PO ACBK #30 cap 08/26/14 RX: Acetaminophen W/ Codeine [Tylenol w/Codeine 300-30 mg] 1 tab PO Q4HR PRN # 30 tab 12/24/15 RX: Citalopram Hydrobromide [Celexa] 20 mg PO DAILY 12/24/15 RX: Umeclidinium [place] [Incruse Ellipta] 62.5 mcg IN DAILY 12/24/15 RX: Albuterol Sulfate Nebs [Proventil Nebs] 0.083 % INH Q4HR PRN 06/20/16 RX: Furosemide 40 mg PO 1200 PRN 06/20/16 RX: Potassium Chloride [Potassium Chloride ER] 10 meq PO BID 06/20/16 RX: Simvastatin 10 mg PO BEDTIME 06/20/16 RX: Lisinopril 5 mg PO DAILY #30 tab 07/01/16 RX: Nystatin (Mouth-Throat) [Nystatin] 5 ml MT QID #1 bottle 07/01/16 predniSONE [Prednisone] 0 mg PO DAILY #12 tab 07/01/16 Benzonatate Perles [Tessalon Perles] 200 mg PO TID #30 cap 04/24/17 RX: predniSONE 10 mg PO BID #14 tab 04/24/17 Additional Instructions: Afrin nose spray one spray each nostril am/pm 3 days on 3 days off for nasal congestion;May also use (over the counter cough medications) Delsym Liquid as directed on package insert;Continue with all home medications;Follow up with primary Md 04/24/2017 call for appointment
[2017-04-23] MEDS ORDERED: IPRATROPIUM/ALBUTEROL 3 ML VIAL NEB ONE (20:40)
[2017-04-23] MEDS ORDERED: BUMETANIDE 0.25 MG/ML VIAL IV ONE (20:40)
[2017-04-23] MEDS ORDERED: methylPREDNISolone SODIUM SUC 125 MG/2 ML VIAL IV ONE (20:41)
--- NOTE | 2017-04-23 21:39 | RAD ---
EXAM DESCRIPTION: Chest,1 View CLINICAL HISTORY: sob COMPARISON: 06/27/2016 FINDINGS: 9 mm triangular density is again seen in the right midlung, unchanged. There is again atelectasis at the left lung base. Cardiac silhouette is within normal limits. There is no other focal parenchymal or pleural disease. Visualized osseous structures are within normal limits. IMPRESSION: No evidence of acute cardiopulmonary disease. Electronically signed by: Lenin Sanchez 04/23/2017 9:38 PM [facility]
[2017-04-23] MEDS ORDERED: BUMETANIDE 0.25 MG/ML VIAL ONE (21:51)
[2017-04-23] MEDS ORDERED: methylPREDNISolone SODIUM SUC 125 MG/2 ML VIAL ONE (21:52)
[2017-04-24] MEDS ORDERED: BENZONATATE PERLES 100 MG CAP PO ONE (00:13)
[2017-04-24 01:30] VITALS: BP 137/94; TEMP 98.4; O2SAT 95
== END 2017-04-24 00:50 | disposition home or self-care (01) ==
LOC: ER 19:35
DX: J45.21 Mild intermittent asthma with (acute) exacerbation (principal); J44.9 Chronic obstructive pulmonary disease, unspecified; I11.0 Hypertensive heart disease with heart failure; I50.9 Heart failure, unspecified; Z79.899 Other long term (current) drug therapy; Z79.82 Long term (current) use of aspirin
CPT/HCPCS: 36415; 71010; 80053; 83880; 84484; 85025; 85379; 93005; 94640; J2930; J3490; J7620

== ENCOUNTER 2018-02-17 07:35 | Inpatient (IN) | payer MEDICARE ==
[2018-02-17] MEDS ORDERED: IPRATROPIUM/ALBUTEROL 3 ML VIAL NEB ONE ×2 (08:01→08:05)
[2018-02-17] MEDS ORDERED: ONDANSETRON ODT 8 MG TAB SL ONE (08:05)
[2018-02-17] MEDS ORDERED: ASPIRIN (CHEWABLE) 81 MG TAB PO ONE (08:07)
[2018-02-17] MEDS ORDERED: MORPHINE SULFATE INJ 10 MG/ML VIAL IV ONE ×2 (08:07→09:57)
--- NOTE | 2018-02-17 08:16 | ED.PDOC ---
History of Present Illness - General Chief Complaint: Respiratory Problem Time Seen by Provider: 02/17/18 08:04 Source: patient, family Exam Limitations: no limitations - History of Present Illness Initial Comments: Patient is here with shortness of breath, nausea with emesis, and chest pain since Friday. Patient states the chest pain has been continuous since Friday and worse with deep inspiration or pressure on his chest. He states that pain is not sharp it just feels like it's constant and always there. He's also had nausea and emesis multiple times since Friday twice this morning. No diarrhea and no abdominal pain although his abdomen does feel bloated. Patient denies any sick contacts or questionable by mouth intake. Patient states the last time his chest felt like this he had pneumonia. He has also been extremely short of breath and his oxygen levels on arrival were 89%. He has known COPD and his last cigarette was Friday before he started getting sick. Patient states breathing treatments at home have not been helping his shortness of breath. He has known congestive heart failure A does feel like his abdomen is swollen but his legs have not swollen the last several days since the symptoms began. Patient has never had a heart attack but his last angiogram gram was 2- 3 years ago. That one was clear at that time. He does take an aspirin a day. Patient denies any fever or chills but does have some diaphoresis. Patient has had no sore throat, nasal congestion, or productive cough. Timing/Duration: days - 2 Severity: severe Activities at Onset: none Possible Cause: occasional episodes, other - in the past with pneumonia Improving Factors: nothing Worsening Factors: movement Associated Symptoms: chest pain, cough, other - nausea and emesis Respiratory Risk Factors: no cause identified Allergies/Adverse Reactions: Allergies NO KNOWN ALLERGY Allergy (Verified 04/23/17 20:01) Home Medications: Ambulatory Orders Aspirin [Baby Aspirin] 81 mg PO DAILY 04/21/14 Terazosin HCl 2 mg PO BEDTIME 04/21/14 Omeprazole [Prilosec Cap] 20 mg PO ACBK #30 cap 08/26/14 Citalopram Hydrobromide [Celexa] 20 mg PO DAILY 12/24/15 Potassium Chloride [Potassium Chloride ER] 20 meq PO BID 06/20/16 Simvastatin 10 mg PO BEDTIME 06/20/16 Albuterol Sulfate [Ventolin Hfa] mg INH BID 02/17/18 Azithromycin [Azithromycin] 500 mg PO DAILY 02/17/18 Budesonide-Formoterol Fumarate [Symbicort 160-4.5 Mcg/Act] 160 mg INH BID Carvedilol 3.125 mg PO BID 02/17/18 Furosemide 40 mg PO BID 02/17/18 Montelukast 10 mg PO DAILY 02/17/18 Umeclidinium Candor [Incruse Ellipta] 62.5 mg INH DAILY 02/17/18 Review of Systems - Review of Systems Constitutional: States: diaphoresis, weakness. Denies: chills, fever EENTM: States: no symptoms reported. Denies: eye pain, ear pain, nose pain, nose congestion, throat pain Respiratory: States: see HPI, short of breath. Denies: cough, wheezing Cardiology: States: chest pain. Denies: edema, palpitations Gastrointestinal/Abdominal: States: see HPI, nausea, vomiting. Denies: abdominal pain, constipation, diarrhea Genitourinary: States: no symptoms reported Musculoskeletal: States: no symptoms reported Skin: States: no symptoms reported Neurological: States: no symptoms reported Past Medical History (General) - Patient Medical History Hx Seizures: No Hx Stroke: No Hx Dementia: No Hx Asthma: No Hx of COPD: Yes Hx Cardiac Disorders: Yes Hx Congestive Heart Failure: Yes Hx Pacemaker: No Hx Hypertension: Yes Hx Thyroid Disease: No Hx Diabetes: No Hx Gastroesophageal Reflux: No Hx Renal Disease: No Hx Cancer: No Hx of HIV: No Hx Hepatitis C: No Hx MRSA: No - Vaccination History Hx Tetanus, Diphtheria Vaccination: No Hx Influenza Vaccination: Yes Hx Pneumococcal Vaccination: No Immunizations Up to Date: No - Social History Hx Tobacco Use: Yes Hx Chewing Tobacco Use: No Hx Alcohol Use: No Hx Substance Use: No Hx Substance Use Treatment: No Hx Depression: No Feels Threatened In Home Enviroment: No Feels Threatened In a Relationship: No Hx Physical Abuse: No Hx Emotional Abuse: No Hx Suspected Abuse: No - Activities of Daily Living Hospice Agency (if applicable):: None - Female History Patient is a Female of Child Bearing Age (10 -59 yrs old): No Patient : No Family Medical History - Family History Father Family History: Unknown Living Status: Cause of : lung cancer Hx Family Hypertension: Yes Hx Cardiac Disease: Yes Age of Onset (years of age): CA Hx Family Cancer: Yes - lung-dad; Hx Family;Other: SEIZURES Mother Family History: Unknown Living Status: Hx Family Hypertension: Yes Hx Cardiac Disease: Yes Hx Family Cancer: Yes - skin Physical Exam - Physical Exam General Appearance: Alert, Ill Appearing, Restless Eyes, Ears, Nose, Throat Exam: PERRL/EOMI, TMs normal, pharynx normal Neck: non-tender, full range of motion, supple, normal inspection Respiratory: decreased breath sounds, other - no wheezes noted but taking a breath every other word Cardiovascular/Chest: normal peripheral pulses, regular rate, rhythm, no edema, no gallop, no murmur Peripheral Pulses: radial,right: 2+, radial,left: 2+ Gastrointestinal/Abdominal: normal bowel sounds, non tender, soft Extremity: normal range of motion, non-tender, normal inspection, no pedal edema Neurologic: alert, oriented x 3 Skin Exam: normal color, diaphoresis Progress - Progress Progress: 02/17/18 10:10 discussed with hydroponics worker practioner MARKUS Tristan and will admit - Results/Orders Results/Orders: 02/17/18 08:15 SPUTUM CULTURE Stat 02/17/18 08:22 SPUTUM CULTURE Stat 02/17/18 09:57 Promethazine HCl Inj [Phenergan Inj] 25 mg Sodium Chloride 0.9% 50Ml [NS 50ml ] 50 ml IVPB ONCE Laboratory Results WBC 18.0 K/mm3 (4.8-10.8) H 02/17/18 08:15 RBC 6.05 M/mm3 (4.70-6.10) 02/17/18 08:15 Hgb 17.0 gm/dL (14.0-18.0) 02/17/18 08:15 Hct 51.6 % (42.0-52.0) 02/17/18 08:15 MCV 85.2 fl (80.0-94.0) 02/17/18 08:15 MCH 28.1 pg (27.0-31.0) 02/17/18 08:15 MCHC 33.0 g/dL (33.0-37.0) 02/17/18 08:15 RDW 13.7 % (11.5-14.5) 02/17/18 08:15 Plt Count 303 K/mm3 (130-400) 02/17/18 08:15 MPV 8.8 fl (7.40-10.4) 02/17/18 08:15 Absolute Neuts (auto) 14.30 K/uL (1.8-6.8) H 02/17/18 08:15 Absolute Lymphs (auto) 1.80 K/uL (1.0-3.4) 02/17/18 08:15 Absolute Monos (auto) 1.70 K/uL (0.2-0.8) H 02/17/18 08:15 Absolute Eos (auto) 0.10 K/uL (0.0-0.4) 02/17/18 08:15 Absolute Basos (auto) 0.10 K/uL (0.0-0.1) 02/17/18 08:15 Neutrophils % 79.4 % (42.0-78.0) H 02/17/18 08:15 Lymphocytes % 9.9 % (20.0-50.0) L 02/17/18 08:15 Monocytes % 9.4 % (2.0-9.0) H 02/17/18 08:15 Eosinophils % 0.6 % (1.0-5.0) L 02/17/18 08:15 Basophils % 0.7 % (0.0-2.0) 02/17/18 08:15 PT 11.0 SECONDS (9.0-10.9) H 02/17/18 08:15 INR 1.10 (0.9-1.15) 02/17/18 08:15 PTT (SP) 28.5 SECONDS (21.8-31.6) 02/17/18 08:15 Sodium 138 mmol/L (135-145) 02/17/18 08:15 Potassium 3.6 mmol/L (3.6-5.0) 02/17/18 08:15 Chloride 105 mmol/L (101-111) 02/17/18 08:15 Carbon Dioxide 24 mmol/L (21-31) 02/17/18 08:15 Anion Gap 12.6 (12-18) 02/17/18 08:15 BUN 18 mg/dL (7-18) 02/17/18 08:15 Creatinine 0.88 mg/dL (0.6-1.3) 02/17/18 08:15 BUN/Creatinine Ratio 20.5 (10-20) H 02/17/18 08:15 Random Glucose 129 mg/dL (70-105) H 02/17/18 08:15 Serum Osmolality 279.3 mOsm/L (275-295) 02/17/18 08:15 Lactic Acid 0.8 mmol/L (0.5-2.2) 02/17/18 08:50 Calcium 9.4 mg/dL (8.4-10.2) 02/17/18 08:15 Magnesium 1.7 mg/dL (1.8-2.5) L 02/17/18 08:15 Total Bilirubin 1.1 mg/dL (0.2-1.0) H D 02/17/18 08:15 AST 15 IU/L (10-42) 02/17/18 08:15 ALT 23 IU/L (10-60) 02/17/18 08:15 Alkaline Phosphatase 59 IU/L (42-121) 02/17/18 08:15 Creatine Kinase 91 IU/L (38-174) 02/17/18 08:15 CK-MB (CK-2) 6.0 ng/mL (0.0-4.4) H* 02/17/18 08:15 CK-MB (CK-2) % Not Reportable 02/17/18 08:15 Troponin I < 0.02 ng/mL (0.01-0.05) 02/17/18 08:15 B-Natriuretic Peptide 33.5 pg/ml (0-100) 02/17/18 08:15 Serum Total Protein 7.5 gm/dL (6.4-8.2) 02/17/18 08:15 Albumin 4.3 g/dl (3.2-5.5) 02/17/18 08:15 Globulin 3.2 gm/dL (2.3-3.5) 02/17/18 08:15 Albumin/Globulin Ratio 1.3 (1.1-1.9) 02/17/18 08:15 Chest xray no acute infiltrate - EKG/XRAY/CT EKG: Sinus, Tachy - HR of 106 with old anterolateral q waves no st changes LA fasicular block, no ST T wave changes, Unchanged from - 04/24/17 Departure - Departure Clinical Impression: COPD exacerbation Disposition: Admit Patient Condition: Fair Departure Forms: ED Discharge - Pt. Copy, Patient Portal Self Enrollment Referrals: CAMILLE JAMES IV, ACUTE CARE NURSE PRACTITIONER [Primary Care Provider] - 1-2 Weeks Home Medications: Ambulatory Orders Aspirin [Baby Aspirin] 81 mg PO DAILY 04/21/14 Terazosin HCl 2 mg PO BEDTIME 04/21/14 Omeprazole [Prilosec Cap] 20 mg PO ACBK #30 cap 08/26/14 Citalopram Hydrobromide [Celexa] 20 mg PO DAILY 12/24/15 Potassium Chloride [Potassium Chloride ER] 20 meq PO BID 06/20/16 Simvastatin 10 mg PO BEDTIME 06/20/16 Albuterol Sulfate [Ventolin Hfa] mg INH BID 02/17/18 Azithromycin [Azithromycin] 500 mg PO DAILY 02/17/18 Budesonide-Formoterol Fumarate [Symbicort 160-4.5 Mcg/Act] 160 mg INH BID Carvedilol 3.125 mg PO BID 02/17/18 Furosemide 40 mg PO BID 02/17/18 Montelukast 10 mg PO DAILY 02/17/18 Umeclidinium Candor [Incruse Ellipta] 62.5 mg INH DAILY 02/17/18
[2018-02-17] MEDS ORDERED: methylPREDNISolone SODIUM SUC 125 MG/2 ML VIAL IV ONE (08:18)
--- NOTE | 2018-02-17 08:36 | RAD ---
EXAM DESCRIPTION: Chest,2 Views CLINICAL HISTORY: shortness of breath COMPARISON: February 26, 2018, June 27, 2016 TECHNIQUE: PA/lateral FINDINGS: The lungs are adequately expanded in the left lung is essentially clear. Small granuloma in the mid right lung is unchanged from prior remote study. There is mild platelike atelectasis or stranding at the right lung base that is new from prior remote studies. The hilar and mediastinal structures are normal. The aorta is calcified and tortuous. Heart size is normal without vascular congestion. IMPRESSION: Minor linear stranding consistent with atelectasis at the right lung base new from prior remote studies in 2017, otherwise negative chest two views. Electronically signed by: Venkat Day MD 02/17/2018 8:35 AM CDT
[2018-02-17] MEDS ORDERED: cefTRIAXone SODIUM 2 GM in SODIUM CHL 0.9% 100ML MINI-BAG 100 ML IVPB ONE (08:38)
[2018-02-17] MEDS ORDERED: SODIUM CHL 0.9% 100ML MINI-BAG 100 ML IVPB ONE (08:40)
[2018-02-17] MEDS ORDERED: LEVALBUTEROL NEBS 1.25 MG/3 ML VIAL NEB ONE (08:41)
[2018-02-17] MEDS ORDERED: PROMETHAZINE HCL INJ 25 MG in SODIUM CHLORIDE 0.9% 50ML 50 ML IVPB ONE (09:57)
[2018-02-17] MEDS ORDERED: PROMETHAZINE HCL INJ 25 MG/ML VIAL ONE (10:12)
[2018-02-17] MEDS ORDERED: SODIUM CHLORIDE 0.9% 50ML 50 ML ONE (10:13)
--- NOTE | 2018-02-17 10:47 | HP ---
SUPERVISING PHYSICIAN: Silvino Bullard M.D. CHIEF COMPLAINT: Shortness of breath and right upper quadrant pain. HISTORY OF PRESENT ILLNESS: Mr. Vicente is a 67 year-old male patient that presented to the Emergency Room today complaining of shortness of breath with some nausea and emesis, and associated epigastric right upper chest pain since Friday. He noted that the chest pain has been on and off since Friday. In fact, he has had some issues, he thinks well over a month or so and notes that he does have some associated indigestion and fullness after eating, but also notes that the pain is worsened by deep inspiratory effort and pressure in the chest. He notes the pain is sharp in nature and consistent, and he gets little relief from any [id number] measures. He has had multiple episodes of nausea and emesis since Friday and this morning, but reports no diarrhea. He had been seen yesterday in the clinic by Derek Kurtz for upper respiratory infection and COPD exacerbation. He noted that he has a history of chronic obstructive pulmonary disease and does currently smoke approximately a pack of cigarettes a day, and has been having some shortness of breath and utilizing breathing treatments at home that had not been helping. He was seen by Derek yesterday and given what he thinks is an antibiotic shot along with oral antibiotics to include azithromycin, and was told to come to the E. R. should he have any worsening of his symptoms. He was denying and fever or chills and notes that he has had some lower extremity edema at times, but he does have a history of congestive heart failure. In the E. R. his initial white count showed he had a leukocytosis of 18,000 with a left shift. Chemistries showed normal electrolytes with BUN 18, creatinine 0.8. Liver functions showed just a slightly elevated total bilirubin of 1.1 with AST, ALT and alkaline phosphatase being normal limits. Amylase and lipase were both within normal limits. Cardiac enzymes showed troponin initially of less than 0.02 with BNP of 33.5. His chest x-ray in the Emergency Department per radiology interpretation showed some minor linear stranding consistent with atelectasis of the right lung base which was noted to be new from previous studies in 2017. Vital signs initially in the Emergency Department showed he was satting 89% on room air and obviously in some mild distress with respirations in the mid 30s. Blood pressure was showing elevation at 146/94 with heart rate 97, but he was afebrile at 98.7. He was given breathing treatments, Solu-Medrol and started on Rocephin in the E. R. His symptoms improved slightly and Dr. Michelle, E. R. physician, requested the patient be admitted for exacerbation of COPD with concerns for developing community acquired pneumonia having failed outpatient treatment measures. On admission to the Medical/Surgical floor, the patient was complaining of continued abdominal pains located in the right upper quadrant and epigastric region resulting in a significant amount of nausea and emesis with minimal response to Phenergan and Zofran. He was given some morphine which did help in decreasing his pain level. He is now going to be admitted to the Medical/Surgical floor for ongoing treatment of exacerbation of COPD and further evaluation of the right upper quadrant pain. He was admitted in stable condition. PAST MEDICAL HISTORY: 1. Chronic obstructive pulmonary disease. 2. Hypertension. 3. Benign prostatic hypertrophy. 4. Congestive heart failure with chronic peripheral edema with last echocardiogram to be in 2015 but no current records available. 5. Chronic tobacco abuse anywhere from 1/2 to 1 pack of cigarettes per day. 6. Depression and anxiety. PAST SURGICAL HISTORY: 1. Left ankle fracture requiring open reduction in 1979. 2. Appendectomy at age 21. 3. Tonsillectomy as a child. HOME MEDICATIONS: 1. Incruse Ellipta 62.5 mg inhaled daily. 2. Azithromycin 500 mg daily. 3. Carvedilol 3.125 mg b.i.d. 4. Simvastatin 10 mg at bedtime. 5. Symbicort 160-4.5 mcg per actuator 160 mg inhaled b.i.d. 6. Potassium chloride 20 mEq b.i.d. 7. Prilosec 20 mg at breakfast. 8. Lasix 40 mg b.i.d. 9. Aspirin 81 mg daily. 10. Terazosin 10 mg daily at bedtime. 11. Celexa 20 mg daily. 12. Montelukast 10 mg daily. ALLERGIES: NO KNOWN DRUG ALLERGIES. FAMILY HISTORY: Significant for chronic obstructive pulmonary disease, lung cancers and cardiovascular disease. SOCIAL HISTORY: The patient is disabled. Lives in [place] and is . He does have a significant history of smoking for over 50 years ranging from 1 to 3 packs per day and is currently smoking. He denies any alcohol or illicit drug use. REVIEW OF SYSTEMS: CONSTITUTIONAL: Denies any fevers, chills, but notes he has been having some generalized weakness with some diaphoresis, but no change in weight or unintentional weight gain. HEENT: Denies any ear ache, sore throat, nasal congestion, headaches. RESPIRATORY: As noted in History of Present Illness, ongoing shortness of breath but denies any significant wheezing or productive cough. CARDIOVASCULAR: Chest pain or shortness of breath as noted in History of Present Illness with no reported edema or palpitations or syncopal episodes. GASTROINTESTINAL: As noted in history of present illness, nausea and vomiting with right upper quadrant abdominal pain with some diarrhea, but notably in the last several days having some constipation. GENITOURINARY: Denies any dysuria, hematuria, polyuria or other urinary symptoms. INTEGUMENT: Denies any rashes or lesions. MUSCULOSKELETAL: No significant arthralgias or myalgias. NEUROLOGIC: Denies any headaches, dizziness, ataxia, seizure activity or other neurological focal deficits. PHYSICAL EXAMINATION: VITAL SIGNS: Initial temperature of 98.7, heart rate 109, blood pressure 131/65 , respirations 32, satting 89% on room air, improving to 94% on nasal cannula at 2 liters at rest. Admission weight was 136.8 kg. GENERAL: On admission to the Medical/Surgical floor, the patient is very disheveled with a strong odor of tobacco and appears to be is some mild distress on initial exam with some obvious pain and shortness of breath resulting in inability to complete sentences without pause. He is alert. HEENT: Tympanic membranes are clear bilaterally. Oropharynx was pink and moist without any lesions. NECK: Supple, non-tender, full range of motion. No jugular venous distention. CHEST: Lung sounds were diminished throughout but no wheezing, rhonchi or rales were heard. CARDIOVASCULAR: Heart rate was regular rate and rhythm without appreciable murmurs, gallops, or rubs. ABDOMEN: Obese but soft. Positive bowel sounds with tenderness noted over the epigastric and right upper quadrant region. No rebound tenderness. EXTREMITIES: No clubbing, cyanosis or edema. NEUROLOGIC: He is alert and oriented times three. Cranial nerves II-XII are grossly intact. Facial features are symmetrical. Extraocular movements are within normal limits. There is no notable nystagmus. There were no obvious neuromotor deficits. LABORATORY: White count showed a leukocytosis of 18,000 with a left shift, hemoglobin 17, hematocrit 51.6, platelet count 303. Coagulation studies showed just a slightly elevated PT of 11 with PTT of 28.5. Chemistries showed normal electrolytes with potassium 3.6, BUN 18, creatinine 0.8, lactic acid 0.8, calcium 9.4, magnesium 1.7. Bilirubin 1.1. AST, ALT all normal. Initial cardiac troponin was less than 0.02. Lipase and amylase were both normal. Urinalysis was pending. 12-lead EKG in the Emergency Department with comparison to EKG on 04/23/17 showed sinus tachycardia at 106 without anterolateral Q waves and a left anterior fascicular block, but no ST wave changes, unchanged from previous EKG. RADIOLOGY: Chest x-ray single view chest showed no acute infiltrate. CT of the abdomen with contrast per radiology interpretation showed a question of mild wall thickening of the gallbladder with obvious calcified cholelithiasis with consideration for right upper quadrant ultrasound. Also of note was fat attenuation intraluminal lesion in the second third portion of the duodenum which could represent lipoma versus ingested material. Consideration evaluation by endoscopy or upper GI. Also of note was colon diverticulosis without CT evidence of acute diverticulitis as well as a left common iliac artery aneurysm measuring 2.8 cm with probable scarring or atelectasis in the right lower lobe. Gallbladder ultrasound showed cholelithiasis with shadowing stone in the dependent gallbladder and either a polyp or non-shadowing stone along the posterior wall of the gallbladder with mild gallbladder wall thickening and pericholecystic edema. The common bile duct was noted to be in the upper range of normal at 5.7 mm. ASSESSMENT: 1. Acute exacerbation of chronic obstructive pulmonary disease having failed to respond to outpatient treatment plan with concerns for developing community acquired pneumonia requiring initiation of aggressive bronchial therapy and initiation of parenteral antibiotics. 2. Leukocytosis secondary to #1 and possibly developing acute cholecystitis. 3. Right upper quadrant epigastric pain with findings on CT and ultrasound indicating cholelithiasis with concerns for possible acute cholecystitis with surgical consultation pending. 4. Mild hypoxia as noted on SpO2 admission of 89% on room air likely secondary to #1 in a chronic smoker. 5. Chronic tobacco abuse with a history of chronic obstructive pulmonary disease. 6. History of congestive heart failure with noted chronic pedal edema with a questionable systolic/diastolic etiology but no current echocardiogram available for review per the patient's chart with last echocardiogram seen to be in 2016. 7. History of essential hypertension. 8. Gastroesophageal reflux disease. 9. Chronic tobacco abuse. 10. History of chronic anxiety and depressive symptoms. 11. Hypomagnesemia likely secondary to some diarrhea and nausea and vomiting. 12. Chest pains requiring rule out more likely related to cholelithiasis and questionable cholecystitis with chest pains being reproducible and current EKG showing to be without any acute changes on exam in comparison to 2017. PLAN: The patient is going to be admitted to the Medical/Surgical floor for ongoing treatment of acute exacerbation of chronic obstructive pulmonary disease with concerns for developing pneumonia with need for rule Acute Cardia injury and questionable acute cholecystitis with evidence of cholelithiasis on CT and sonogram. He will be made NPO and Dr. Persaud has been consulted to further assist with the right upper quadrant pain and CT findings. He will be on aggressive bronchial hygiene with DuoNeb treatments q.i.d. and p.r.n. Albuterol. He will be on DVT prophylaxis per protocol. Will go ahead and replace some of his magnesium with 2 grams of IV magnesium. He was given antibiotic coverage in the E. R. initially with Rocephin. This will be continued as well as the addition of azithromycin and will await sputum cultures to further target antibiotic therapy. Will await Dr. Persaud's consultation and anticipate length of stay to be at least 2 to 3 days. Until the patient is showing to be clinically stable, will continue to monitor and treat appropriately. #[id number] [facility], [place]
[2018-02-17] MEDS ORDERED: SODIUM CHLORIDE 0.9% (FLUSH) 10 ML SYG IV PRN (11:10)
[2018-02-17] MEDS ORDERED: ACETAMINOPHEN 325 MG TAB PO PRN (11:10)
[2018-02-17] MEDS ORDERED: ALBUTEROL SULFATE 2.5 MG/3 ML VIAL NEB PRN (11:10)
[2018-02-17] MEDS ORDERED: IV SET AND CAP CHANGE INJ INJ SCH (11:30)
[2018-02-17] MEDS ORDERED: PROMETHAZINE HCL INJ 25 MG/ML VIAL IM ONE (11:56)
[2018-02-17] MEDS ORDERED: PANTOPRAZOLE SODIUM IV 40 MG VIAL IV ONE (12:06)
[2018-02-17] MEDS ORDERED: LISINOPRIL 10 MG TAB PO ONE (12:10)
[2018-02-17] MEDS ORDERED: SODIUM CHLORIDE 0.9% 250ML 250 ML ONE (12:14)
[2018-02-17] MEDS ORDERED: AZITHROMYCIN IV 500 MG VIAL IVPB ONE (12:14)
[2018-02-17] MEDS: ONDANSETRON INJ 4 MG/2 ML VIAL IV PRN ×2 (12:30→16:32)
[2018-02-17] MEDS: AZITHROMYCIN IV 500 MG in SODIUM CHLORIDE 0.9% 250ML 250 ML IVPB SCH (12:38)
[2018-02-17] MEDS: KCL 20MEQ/0.45% NS 1,000 ML IVS PRN ×2 (12:38→22:54)
[2018-02-17] MEDS: IPRATROPIUM/ALBUTEROL 3 ML VIAL INH SCH ×3 (13:15→20:44)
--- NOTE | 2018-02-17 13:40 | CT ---
EXAM DESCRIPTION: Abdomen/Pelvis w/Contrast CLINICAL HISTORY: abdominal pain N/V COMPARISON: None. TECHNIQUE: Postcontrast CT images of the abdomen and pelvis are obtained using standard imaging protocol. This exam was performed according to our departmental dose-optimization program, which includes automated exposure control, adjustment of the mA and/or kV according to patient size and/or use of iterative reconstruction technique . FINDINGS: The visualized lung bases show interstitial nodular changes in the right lower lobe that could represent atelectasis or scarring. Calcifications of the aortic valve are seen. Trace pericardial effusion is noted. Small hiatal hernia seen. The liver, spleen, pancreas, and adrenal glands are unremarkable. There is indistinctness of the gallbladder wall with surrounding fat stranding. No obvious calcified calculi are seen. There is a fat attenuation filling defect in the second and third portion of the duodenum measuring 2.1 cm. Mild atherosclerotic disease. Mild aneurysmal dilatation of the left common iliac artery measures 2.8 cm. Kidneys show no significant nephrolithiasis. There is a partly exophytic 2.4 cm cortical cyst of the anterior midpole left kidney. No ureteral calcification or obstruction. Urinary bladder is poorly distended but does fill with contrast on delayed images. Mild prostate calcifications are seen. The appendix is not identified. Stomach is poorly distended. No small bowel obstruction or bowel wall thickening is seen. Mild scattered diverticuli of the mostly descending to sigmoid colon are seen without associated inflammatory changes or fluid collections. Small fat-containing left inguinal hernia seen. No pathologic lymphadenopathy is seen. Osseous structures show no aggressive bony lesions. Mild to moderate degenerative changes of the spine are seen most significant at L3-4 and L5-S1. IMPRESSION: Question mild wall thickening of the gallbladder without obvious calcified cholelithiasis. Consider further evaluation with right upper quadrant ultrasound. Fat attenuation intraluminal lesion in the second third portion of the duodenum could represent lipoma versus ingested material. Consider further evaluation with endoscopy or upper GI. Colon diverticulosis without CT evidence of acute diverticulitis. Left common iliac artery aneurysm measures 2.8 cm. Probable scarring or atelectasis in the right lower lobe. Electronically signed by: Gopi Velasco MD 02/17/2018 1:39 PM CDT
[2018-02-17] MEDS ORDERED: KETOROLAC TROMETHAMINE INJ 30 MG/ML VIAL IV ONE (13:51)
[2018-02-17] MEDS: methylPREDNISolone SODIUM SUC 125 MG/2 ML VIAL IV SCH ×2 (15:02→19:52)
--- NOTE | 2018-02-17 15:41 | US ---
EXAM DESCRIPTION: Gall Bladder CLINICAL HISTORY: 67 years Male, RUQ pain f/u CT findings COMPARISON: Current CT examination. FINDINGS: Region of the pancreas shows no gross abnormality without cystic or solid hypoechoic mass identified but the margins of the pancreas poorly visualized. The aorta and vena cava are not visualized The liver is moderately echogenic but without focal cystic or solid masses. Common bile duct is 5.7 mm in diameter at the upper limits of normal without evidence of ascites. Gallbladder wall is approximately 4 mm in thickness and mildly thickened with a shadowing stone noted within the gallbladder neck and additional polyp or stone in the dependent portion of the gallbladder is much is 1.6 cm in length. Minimal pericholecystic edema is suggested. Right kidney was not visualized. IMPRESSION: 1. Cholelithiasis with shadowing stone in the dependent gallbladder and either a polyp or nonshadowing stone along the posterior wall of the gallbladder with mild gallbladder wall thickening and pericholecystic edema. 2. Common bile duct upper range of normal at 5.7 mm. 3. Nonvisualization of the right kidney, aorta, or vena cava. Electronically signed by: Venkat Day MD 02/17/2018 3:39 PM CDT
[2018-02-17] MEDS: FUROSEMIDE 40 MG TAB PO SCH (16:26)
[2018-02-17] MEDS ORDERED: HYDROmorphone HCL INJ 2 MG/ML VIAL IV ONE (18:14)
[2018-02-17] MEDS ORDERED: metroNIDAZOLE IV PREMIX 500MG 100 ML IVPB ONE ×2 (18:31→19:25)
[2018-02-17] MEDS: metroNIDAZOLE IV PREMIX 500MG 500 MG in PREMIX BAG 1 BAG IVPB SCH (18:32)
[2018-02-17] MEDS ORDERED: PANTOPRAZOLE SODIUM IV 40 MG VIAL ONE (19:25)
[2018-02-17] MEDS: CARVEDILOL 3.125 MG TAB PO SCH (19:51)
[2018-02-17] MEDS: NICOTINE PATCH 21 MG TD SCH (19:59)
[2018-02-17] MEDS: POTASSIUM CHLORIDE 20 MEQ TAB PO SCH (20:35)
[2018-02-17] MEDS ORDERED: MAGNESIUM SULFATE PREMIX 2GM 2 GM in PREMIX BAG 1 BAG IVPB ONE (20:50)
[2018-02-17] MEDS ORDERED: ENOXAPARIN SODIUM 40 MG/0.4 ML SYG SUBCU SCH (21:00)
[2018-02-17] MEDS ORDERED: TERAZOSIN 1 MG CAP PO SCH (21:00)
[2018-02-17] MEDS ORDERED: SIMVASTATIN 10 MG TAB PO SCH (21:00)
[2018-02-17] MEDS ORDERED: NON-FORMULARY MEDICATION 1 EA MIS (Budesonide-Formoterol Fumarate [Symbicort 160-4.5 Mcg/A INH SCH (21:00)
--- NOTE | 2018-02-17 21:02 | CONS ---
DATE OF CONSULTATION: 02/17/18 REFERRING PHYSICIAN: Hospitalist Service HISTORY OF PRESENT ILLNESS: The patient is a 67 year-old male who was admitted through the Emergency Room with shortness of breath and tachypnea, however the patient also complains of nausea with emesis and pain in his upper abdomen and chest for 3 days. He states that his symptoms have not improved after vomiting. The patient has no history of hepatitis or jaundice. To questioning , he does have fatty food intolerance. He does not eat [place] food because it makes him sick and complains that pizza also causes significant problems. The patient has no upper respiratory symptoms to include cough or congestion. He also feels that his abdomen is distended. PAST MEDICAL HISTORY: 1. Chronic obstructive pulmonary disease. 2. Congestive heart failure. 3. Hypertension. 4. Gastroesophageal reflux disease. PAST SURGICAL HISTORY: CURRENT MEDICATIONS: 1. Aspirin. 2. Terazosin. 3. Omeprazole. 4. Citalopram. 5. Potassium. 6. Simvastatin. 7. Albuterol. 8. Symbicort. 9. Carvedilol. 10. Lasix. 11. Montelukast Ellipta. ALLERGIES: NO KNOWN DRUG ALLERGIES. FAMILY HISTORY: Positive for lung cancer, hypertension, coronary artery disease and seizure disorders. Also a history of skin malignancies. SOCIAL HISTORY: The patient is . He smokes 2 to 3 packs a day currently. Denies alcohol use for many years. REVIEW OF SYSTEMS: Negative except as in the History of Present Illness. Specifically no urinary symptoms, upper respiratory symptoms as in congestion or nasal discharge. PHYSICAL EXAMINATION: VITAL SIGNS: He is tachypneic. GENERAL: The patient is awake, alert, cooperative and in mild to moderate distress. HEENT: Nasal cannula is intact. Sclera are nonicteric. Mucous membranes are moist. NECK: Without adenopathy. RESPIRATORY: He has decreased breath sounds without wheezing, but he is quite tachypneic. HEART: Regular rate and rhythm. ABDOMEN: Distended. It is tender in the right upper quadrant without mass or guarding. Bowel sounds are normal. EXTREMITIES: Without clubbing, cyanosis or edema. LABORATORY: White count of 18,000, platelet count 303,000, hemoglobin 17, 79% neutrophils. PT and INR reveal an INR of 1.10, PTT of 28. Potassium 3.6, creatinine 0.88, glucose 129. Liver function tests revealed total bilirubin of 1.1. AST, ALT and alkaline phosphatase were within normal limits. CK-MB was mildly elevated at 6 with a normal CK. Troponin was normal. BNP was 33. CT scan of the abdomen revealed a thickened gallbladder wall with pericholecystic fluid. Ultrasound of the gallbladder revealed gallstones with pericholecystic fluid and a thickened gallbladder wall, upper limits of normal common bile duct. IMPRESSION: 1. Chronic obstructive pulmonary disease with an exacerbation secondary to abdominal pain and splinting. 2. Acute cholecystitis. PLAN: Continue respiratory toilet. Add Flagyl to the ongoing antibiotics. Make the patient NPO. Repeat lab in the morning. At that point, make a decision as to whether cholecystectomy on an acute basis is appropriate. #[id number] [facility]
[2018-02-17] MEDS ORDERED: MAGNESIUM SULFATE PREMIX 2GM 50 ML IVPB ONE (22:39)
[2018-02-18] MEDS: ONDANSETRON INJ 4 MG/2 ML VIAL IV PRN (00:26)
[2018-02-18] MEDS: HYDROmorphone HCL INJ 2 MG/ML VIAL IV PRN ×2 (00:33→14:29)
[2018-02-18] MEDS ORDERED: LEVALBUTEROL NEBS 1.25 MG/3 ML VIAL NEB ONE ×2 (01:27→01:32)
[2018-02-18] MEDS: PANTOPRAZOLE SODIUM IV 40 MG VIAL IV SCH ×2 (01:42→06:15)
[2018-02-18] MEDS: metroNIDAZOLE IV PREMIX 500MG 500 MG in PREMIX BAG 1 BAG IVPB SCH ×2 (01:58→10:45)
--- NOTE | 2018-02-18 07:23 | RAD ---
Procedure: XR CHEST 2 VIEWS Exam Date: 02/18/2018 Ordering Provider: Monty Tristan Clinical Indication: Pneumonia Comparison: 02/17/2018 Findings: Cardiomediastinal silhouette is within normal limits. Subsegmental atelectasis and/or infiltrate in the right middle lobe. Lingular subsegmental atelectasis/scarring. No pleural effusion. No pneumothorax. No acute osseous abnormality. Impression: 1. Subsegmental atelectasis and/or infiltrate in the right middle lobe. Electronically signed by: Ho Lewis MD 02/18/2018 7:21 AM CDT
[2018-02-18] MEDS: IPRATROPIUM/ALBUTEROL 3 ML VIAL INH SCH ×2 (07:50→11:39)
[2018-02-18] MEDS ORDERED: raNITIdine HCL INJ 50 MG in SODIUM CHLORIDE 0.9% 50ML 50 ML IVPB SCH (08:30)
[2018-02-18] MEDS ORDERED: BUDESONIDE NEBS 0.5 MG/2 ML VIAL NEB SCH (08:30)
[2018-02-18] MEDS ORDERED: SODIUM CHLORIDE 0.9% 50ML 50 ML ONE (08:39)
[2018-02-18] MEDS: CARVEDILOL 3.125 MG TAB PO SCH (08:53)
[2018-02-18] MEDS: FUROSEMIDE 40 MG TAB PO SCH (08:53)
[2018-02-18] MEDS: NICOTINE PATCH 21 MG TD SCH (08:53)
[2018-02-18] MEDS: POTASSIUM CHLORIDE 20 MEQ TAB PO SCH (08:53)
[2018-02-18] MEDS ORDERED: UMECLIDINIUM BROMIDE INH SCH ×2 (09:00)
[2018-02-18] MEDS ORDERED: CITALOPRAM HBR 20 MG TAB PO SCH (09:00)
[2018-02-18] MEDS ORDERED: ASPIRIN (CHEWABLE) 81 MG TAB PO SCH (09:00)
[2018-02-18] MEDS ORDERED: NON-FORMULARY MEDICATION 1 EA MIS (Budesonide-Formoterol Fumarate [Symbicort 160-4.5 Mcg/A INH SCH ×2 (09:00)
[2018-02-18] MEDS ORDERED: cefTRIAXone SODIUM 1 GM in SODIUM CHL 0.9% 50ML MIN-BAG+ 50 ML IVPB SCH (09:00)
[2018-02-18] MEDS ORDERED: MONTELUKAST 10 MG TAB PO SCH (09:00)
[2018-02-18] MEDS ORDERED: metroNIDAZOLE IV PREMIX 500MG 100 ML IVPB ONE (10:42)
[2018-02-18] MEDS: KCL 20MEQ/0.45% NS 1,000 ML IVS PRN (10:45)
[2018-02-18] MEDS ORDERED: SODIUM CHLORIDE 0.9% 250ML 250 ML ONE (11:32)
[2018-02-18] MEDS ORDERED: AZITHROMYCIN IV 500 MG VIAL IVPB ONE (11:35)
[2018-02-18] MEDS: AZITHROMYCIN IV 500 MG in SODIUM CHLORIDE 0.9% 250ML 250 ML IVPB SCH (12:15)
[2018-02-18] MEDS ORDERED: methylPREDNISolone SODIUM SUC 125 MG/2 ML VIAL IV SCH (13:00)
--- NOTE | 2018-02-18 13:27 | CONS ---
DATE OF CONSULTATION: 02/18/18 REASON FOR CONSULTATION: Right upper quadrant pain, abnormal imaging of the biliary tract, abnormal imaging of the GI tract, gastroesophageal reflux disease. CHIEF COMPLAINT: Right upper quadrant pain. HISTORY OF PRESENT ILLNESS: The patient is a 67-year-old male who came into the Emergency Room yesterday complaining of right upper quadrant and epigastric pain. History was obtained from the bedside from the patient and the patient's . The patient has been complaining of right upper quadrant pain for about a year. This issue comes and goes. The pain is a sharp pain, it is currently rated 9/10. The pain radiates through his epigastrium. It is associated with nausea. It is worsened by eating and activity. He reports the pain usually resolves on its own, but it came on strong for the past few days and has not resolved. He also reports some subjective chills. He denies melena , hematochezia, diarrhea, vomiting or fever. In the Emergency Room, he was noted to have an elevated white blood cell count. Upon chart review, he was seen by his primary care provider on 02/16/18 for similar symptoms, white blood cell count was elevated above 20 at that time as well. He was given a shot of antibiotics and steroids at that time which did not help his symptoms. He has never undergone any prior upper and lower endoscopy. Imaging in the Emergency Room with CT scan revealed question mild wall thickening of the gallbladder, consider further evaluation with ultrasound, it also revealed fat attenuation intraluminal lesion in the second or third portion of the duodenum representing lipoma versus ingested material. Followup ultrasound of the right upper quadrant showed cholelithiasis with shadowing stone and mild gallbladder wall thickening with pericholecystic edema, common bile duct measuring 5.7 mm. Initial blood work revealed normal liver tests other than a mildly elevated bilirubin of 1.1 which normalized today. His white blood cell count increased today. Chest x-ray shows some possible atelectasis in the right middle lobe. He was put on antibiotics to cover both his gallbladder and pneumonia with ceftriaxone, azithromycin and Flagyl. The patient states his pain has not improved. He has remained NPO. Before a year ago, he has never had symptoms like this. He denies any prior abdominal surgeries or family history of GI malignancy. PAST MEDICAL HISTORY: 1. Chronic obstructive pulmonary disease with history of multiple exacerbations. 2. High blood pressure. 3. Congestive heart failure. PAST SURGICAL HISTORY: 1. Left ankle fracture requiring open reduction. 2. Appendectomy. 3. Tonsillectomy. HOME MEDICATIONS: Please see medication administration reconciliation. ALLERGIES: NO KNOWN DRUG ALLERGIES. FAMILY HISTORY: No family history of GI malignancy. SOCIAL HISTORY: He is a current smoker, smoking 1 to 3 packs per day. He denies alcohol or drugs. PHYSICAL EXAMINATION: VITAL SIGNS: Afebrile. Heart rate 109. Blood pressure 131/65. Respirations 30. O2 saturation 94% on 2 liters nasal cannula. GENERAL: He is mildly distressed and tachypneic. Otherwise, he is alert and oriented times 3. HEENT: Tympanic membranes are clear bilaterally. Oropharynx is pink and moist without any lesions. NECK: Supple, nontender, full range of motion. No jugular venous distention. No thyromegaly. CHEST: The patient has diffuse expiratory wheezing, no crackles or rales. HEART: Regular rate and rhythm without any murmurs. ABDOMEN: He has tenderness to palpation with light palpation in the right upper quadrant with some voluntary guarding. He has mild tenderness to palpation in the epigastrium. He has normoactive bowel sounds. Abdomen otherwise nondistended. EXTREMITIES: No cyanosis, clubbing or edema. SKIN: No rashes, jaundice or palpable lesions. NEUROLOGIC: He is alert and oriented times 3. Cranial nerves II-XII are grossly intact. LABORATORY AND IMAGING: Reviewed in the chart. ASSESSMENT/PLAN: This is a 67-year-old gentleman presenting with acute cholecystitis and chronic obstructive pulmonary disease exacerbation. He also has abnormal imaging of the GI tract. 1. Acute cholecystitis as evidenced by abnormal imaging showing gallbladder wall thickening, pericholecystic edema and right upper quadrant pain with an elevated white count. I recommend laparoscopic cholecystectomy. He may be better served by being transferred to [place] for a higher level of care given his medical comorbidities and current chronic obstructive pulmonary disease exacerbation. Right upper quadrant sonogram did mention bile duct is at the upper limit of normal, however, it is measured at 5.7 cm and as he is 67 years old, this is actually within normal limits for him. I do not suspect any evidence of choledocholithiasis given normal liver tests today. He can have an intraoperative cholangiogram at the time of cholecystectomy. 2. Chronic obstructive pulmonary disease exacerbation. Continue antibiotics and pulmonary steroids. Consider pulmonary consult in [place]. 3. Abnormal imaging of the GI tract. Lesion seen on CT scan is most likely a lipoma. However, I think he does warrant upper endoscopic evaluation. I would wait until his acute issues have resolved. He could followup in the GI clinic for this. He also has a history of gastroesophageal reflux disease and is overdue for screening colonoscopy. We could address that at that time as well. Followup in GI clinic with Dr. Almaraz in one to two months after discharge. #[id number] [facility]
[2018-02-18 15:01] VITALS: BP 131/87; TEMP 98.1; O2SAT 96
--- NOTE | 2018-02-23 08:03 | DS ---
ADMISSION DIAGNOSES: 1. Acute exacerbation of chronic obstructive pulmonary disease having failed to respond to outpatient treatment plan with concerns for developing community acquired pneumonia requiring initiation of aggressive bronchial therapy and initiation of parenteral antibiotics. 2. Leukocytosis secondary to #1 and possibly developing acute cholecystitis. 3. Right upper quadrant epigastric pain with findings on CT and ultrasound indicating cholelithiasis with concerns for possible acute cholecystitis with surgical consultation pending. 4. Mild hypoxia as noted on SpO2 admission of 89% on room air likely secondary to #1 in a chronic smoker. 5. Chronic tobacco abuse with a history of chronic obstructive pulmonary disease. 6. History of congestive heart failure with noted chronic pedal edema with a questionable systolic/diastolic etiology but no current echocardiogram available for review per the patient's chart with last echocardiogram seen to be in 2015. 7. History of essential hypertension. 8. Gastroesophageal reflux disease. 9. Chronic tobacco abuse. 10. History of chronic anxiety and depressive symptoms. 11. Hypomagnesemia likely secondary to some diarrhea and nausea and vomiting. 12. Chest pains requiring rule out more likely related to cholelithiasis and questionable cholecystitis with chest pains being reproducible and current EKG showing to be without any acute changes on exam in comparison to 2017. DISCHARGE DIAGNOSES: 1. Acute exacerbation of chronic obstructive pulmonary disease having failed to respond to outpatient treatment plan with concerns for developing community acquired pneumonia requiring initiation of aggressive bronchial therapy and initiation of parenteral antibiotics. 2. Leukocytosis secondary to #1 and possibly developing acute cholecystitis. 3. Right upper quadrant epigastric pain with findings on CT and ultrasound indicating cholelithiasis with concerns for possible acute cholecystitis with surgical consultation pending. 4. Mild hypoxia as noted on SpO2 admission of 89% on room air likely secondary to #1 in a chronic smoker. 5. Chronic tobacco abuse with a history of chronic obstructive pulmonary disease. 6. History of congestive heart failure with noted chronic pedal edema with a questionable systolic/diastolic etiology but no current echocardiogram available for review per the patient's chart with last echocardiogram seen to be in 2015. 7. History of essential hypertension. 8. Gastroesophageal reflux disease. 9. Chronic tobacco abuse. 10. History of chronic anxiety and depressive symptoms. 11. Hypomagnesemia likely secondary to some diarrhea and nausea and vomiting. 12. Chest pains requiring rule out more likely related to cholelithiasis and questionable cholecystitis with chest pains being reproducible and current EKG showing to be without any acute changes on exam in comparison to 2017. MEDICAL CONSULTATION: 1. Freelance Photographer, Dr. Brown. Please see his medical consultation report. 2. Surgical consultation, Dr. Persaud. Please see his report for full details. REASON FOR HOSPITALIZATION: Mr. Vicente is a 67 year-old male patient that presented to the Emergency Room today complaining of shortness of breath with some nausea and emesis, and associated epigastric right upper chest pain since Friday. He noted that the chest pain has been on and off since Friday. In fact, he has had some issues, he thinks well over a month or so and notes that he does have some associated indigestion and fullness after eating, but also notes that the pain is worsened by deep inspiratory effort and pressure in the chest. He notes the pain is sharp in nature and consistent, and he gets little relief from any [id number] measures. He has had multiple episodes of nausea and emesis since Friday and this morning, but reports no diarrhea. He was seen yesterday in the clinic by Derek Kurtz for upper respiratory infection and COPD exacerbation. He noted that he has a history of chronic obstructive pulmonary disease and does currently smoke approximately a pack of cigarettes a day, and has been having some shortness of breath and utilizing breathing treatments at home that had not been helping. He was seen by Derek yesterday and given what he thinks is an antibiotic shot along with oral antibiotics to include azithromycin, and was told to come to the Emergency Room should he have any worsening of his symptoms. He was denying and fever or chills and notes that he has had some lower extremity edema at times, but he does have a history of congestive heart failure. In the Emergency Room his initial white count showed he had a leukocytosis of 18,000 with a left shift. Chemistries showed normal electrolytes with BUN 18, creatinine 0.8. Liver functions showed just a slightly elevated total bilirubin of 1.1 with AST, ALT and alkaline phosphatase being normal limits. Amylase and lipase were both within normal limits. Cardiac enzymes showed troponin initially of less than 0.02 with BNP of 33.5. His chest x-ray in the Emergency Department per radiology interpretation showed some minor linear stranding consistent with atelectasis of the right lung base which was noted to be new from previous studies in 2017. Vital signs initially in the Emergency Department showed he was satting 89% on room air and obviously in some mild distress with respirations in the mid 30s. Blood pressure was showing elevation at 146/94 with heart rate 97, but he was afebrile at 98.7. He was given breathing treatments, Solu-Medrol and started on Rocephin in the E. R. His symptoms improved slightly and Dr. Michelle, Emergency Room physician, requested the patient be admitted for exacerbation of COPD with concerns for developing community acquired pneumonia having failed outpatient treatment measures. On admission to the Medical/Surgical floor, the patient was complaining of continued abdominal pains located in the right upper quadrant and epigastric region resulting in a significant amount of nausea and emesis with minimal response to Phenergan and Zofran. He was given some morphine which did help in decreasing his pain level. He is now going to be admitted to the Medical/ Surgical floor for ongoing treatment of exacerbation of COPD and further evaluation of the right upper quadrant pain. He was admitted in stable condition. LABORATORY STUDIES: White count on admission was 18,000. at discharge it had gone up to 24,500. Hemoglobin and hematocrit were stable at discharge with hemoglobin 16.1 and hematocrit 48.8, platelet count count 309,000. Differential did show a left shift with increasing bands at 1% prior to discharge transfer to [facility]. Coagulation studies showed PT of 11 with PTT of 28.5. Chemistries on admission showed normal electrolytes and at discharge as well with a BUN 18, creatinine 0.7 at discharge. Magnesium low 1.7 both on admission and discharge despite replacement. Troponin less then 0.02 times three 6 hours apart. Amylase and lipase were both normal. Liver functions showed normal limits. MICROBIOLOGY: Sputum pending at time of transfer with no growth at 12 hours noted on preliminary report. Final report showed a few mixed normal respiratory lakia. RADIOLOGY: Initial chest x-ray in the Emergency Department per radiology interpretation showed minor linear stranding consistent with atelectasis at the right lung base, many from prior studies in 2017, otherwise negative 2-view chest. He also had abdominal pelvic CT after admission to the medical/surgical floor and per radiology interpretation showed a question of mild wall thickening of the gallbladder without obvious calcified cholelithiasis, consider full evaluation with the right upper quadrant ultrasound. Also note fat attenuation intraluminal lesion in the second third portion of the duodenum which could represent lipoma versus ingested material. Recommend endoscopy or upper GI. 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 This was followed up with an ultrasound of the gallbladder and per radiology interpretation showed cholelithiasis with shadowing stone in the dependent gallbladder and either a polyp or non-shadowing stone along the posterior wall of the gallbladder with mild gallbladder wall thickening and pericholecystic edema. Also noted was the common bile duct to be in the upper range of 5.7 mm with normalization of the right kidney and vena cava. He also had a chest x-ray on the morning of discharge/transfer and per radiology interpretation was showing subsegmental atelectasis and/or infiltrate in the right middle lobe. HOSPITAL COURSE: Mr. Vicente was admitted on 02/17/18 initially for concerns for exacerbation of chronic obstructive pulmonary disease with developing pneumonia. After admission exam, he was found to be tender in the right upper quadrant and followup on this with CT and gallbladder ultrasounds indicated that he was probably having some cholelithiasis, possibly cholecystitis at that time. Medical consultation was secured with Dr. Persaud. A consultation with Dr. Almaraz, food assembler commissary kitchen, was also secured. The patient was started on antibiotics initially with Rocephin and azithromycin with Levaquin added for coverage for possible cholecystitis. He was given breathing treatments and started on aggressive pulmonary hygiene and was given pain management with Toradol and Dilaudid. Given that he had a significant increase in his white count on the morning of transfer and concerns for acute cholecystitis, Dr. Persaud requested the patient be transferred to [facility] for higher level care given that he was a poor candidate for surgical intervention here as well as this was agreed upon by gastrointestinal specialist, Dr. Almaraz. [facility] was contacted and Dr. Serna was consulted with by Dr. Persaud and an agreement was in place for patient to be transferred for further care. PLAN: Mr. Vicente was discharged to be transferred to [facility] on 02/18/18 for acute cholecystitis and chronic obstructive pulmonary disease exacerbation with developing right-sided pneumonia. The patient is a poor surgical candidate for [facility] and will most likely intensive care unit at some point if he progressively worsens. The patient was discharged by ground ambulance and condition was guarded but stable and at discharge was n.p.o. #[id number] [facility]
== END 2018-02-18 16:06 | disposition short-term general hospital (02) | DRG 190 ==
LOC: ER 07:35 → MS 10:46
PROVIDERS: ADMIT Nurse Practitioner Family; ATTEND Nurse Practitioner Family
DX: J44.1 Chronic obstructive pulmonary disease with (acute) exacerbation (principal); J18.9 Pneumonia, unspecified organism; K80.00 Calculus of gallbladder with acute cholecystitis without obstruction; R09.02 Hypoxemia; F17.210 Nicotine dependence, cigarettes, uncomplicated; I11.0 Hypertensive heart disease with heart failure; I50.9 Heart failure, unspecified; K21.9 Gastro-esophageal reflux disease without esophagitis; F41.9 Anxiety disorder, unspecified; F32.9 Major depressive disorder, single episode, unspecified; E83.42 Hypomagnesemia; K57.30 Diverticulosis of large intestine without perforation or abscess without bleeding; I72.8 Aneurysm of other specified arteries; Z79.82 Long term (current) use of aspirin

== ENCOUNTER → 2018-03-24 | Outpatient (CLI) | payer MEDICARE | LOC: LAB.O 10:52 | PROVIDERS: ATTEND Nurse Practitioner Family | DX: K81.9 Cholecystitis, unspecified (principal) ==

== ENCOUNTER → 2018-04-14 | Outpatient (CLI) | payer MEDICARE ==
--- NOTE | 2018-04-14 14:07 | RAD ---
EXAM DESCRIPTION: Chest,2 Views CLINICAL HISTORY: COPD COMPARISON: Previous chest x-ray February 18, 2018, previous CT abdomen and pelvis which included the lower chest February 17, 2018 TECHNIQUE: PA/lateral FINDINGS: There is no acute appearing cardiac or pulmonary abnormality. Heart size is normal with normal pulmonary vascularity. No pleural effusion or pneumothorax. Lungs are clear with no consolidating infiltrate. Granuloma in the right midlung is unchanged. Discoid atelectasis in the right lung base has improved since previous study. On the lateral view, over the lower T-spine and nodular density measures 1.4 cm. This was not as well seen on the previous study. Patient had a CT abdomen February 17, 2018 which included the lower chest. A calcified granuloma was seen in the left lower lobe and triangular wedge like focus of scarring or subpleural atelectasis was seen in the right lower lobe. These could conceivably account for the findings on the chest x-ray. Lateral view shows intact sternum and T-spine. IMPRESSION: Lower lobe nodule seen on lateral view. No consolidating infiltrate. Electronically signed by: Harsh Chicas MD 04/14/2018 2:06 PM [employer]
== END ==
LOC: RAD 09:02
PROVIDERS: ATTEND Internal Medicine
DX: J44.9 Chronic obstructive pulmonary disease, unspecified (principal); R91.1 Solitary pulmonary nodule

== ENCOUNTER → 2018-10-08 | Outpatient (CLI) | payer MEDICARE ==
--- NOTE | 2018-10-09 15:45 | RAD ---
EXAM: Cervical Spine, 2-3 Views CLINICAL HISTORY: PAIN IN LEFT SHOULDER TECHNIQUE: AP, lateral and odontoid x-rays of the cervical spine COMPARISON STUDY: None. FINDINGS: Vertebral bodies in normal alignment. Disc height loss and mild endplate degenerative changes are present at C5-6. Moderate facet arthropathy is seen left-sided at C3-4. No prevertebral soft tissue swelling. No fracture identified. IMPRESSION: Mild degenerative disc changes at C5-6 and left facet arthropathy at C3-4. Electronically signed by: Eusebio Amador MD 10/09/2018 3:43 PM CDT
== END ==
LOC: RAD 15:16
PROVIDERS: ATTEND Nurse Practitioner Family
DX: M50.31 Other cervical disc degeneration, high cervical region (principal); M50.322 Other cervical disc degeneration at C5-C6 level

== ENCOUNTER → 2018-11-18 | Outpatient (CLI) | payer MEDICARE ==
--- NOTE | 2018-11-19 07:05 | MRI ---
MRI left shoulder without contrast INDICATION: Shoulder pain no specific injury date of onset not specified TECHNIQUE: Noncontrast MR imaging left shoulder standard protocol FINDINGS: High-grade interstitial partial tear subscapularis tendon. No bicep rupture or dislocation. Tendinopathy with interstitial partial tears of the insertional supraspinatus and infraspinatus approaching 50% partial-thickness. Adjacent edema and mild cystic change greater tuberosity Mild subacromial and subdeltoid bursitis Moderate hypertrophic AC joint osteoarthrosis. Mild labral degeneration fraying and volume loss superior labrum. Up to grade 2 marbling throughout the rotator cuff muscle bellies. No advanced atrophy IMPRESSION: Partial thickness rotator cuff tears most pronounced in the subscapularis as above Up to grade 2 fatty muscle atrophy/marbling Moderate AC joint osteoarthrosis Labral degeneration/fraying especially superiorly Mild bursal edema No advanced muscle atrophy No bicep rupture or dislocation Electronically signed by: Cortes Graham MD 11/19/2018 7:03 AM CDT
== END ==
LOC: MRI 13:29
PROVIDERS: ATTEND Nurse Practitioner Family
DX: M75.102 Unspecified rotator cuff tear or rupture of left shoulder, not specified as traumatic (principal); M19.012 Primary osteoarthritis, left shoulder; M62.512 Muscle wasting and atrophy, not elsewhere classified, left shoulder

== ENCOUNTER → 2019-04-15 | Outpatient (CLI) | payer MEDICARE ==
--- NOTE | 2019-04-16 09:38 | RAD ---
EXAM DESCRIPTION: Chest,2 Views CLINICAL HISTORY: 69 years Male, COPD with (acute) exacerbation COMPARISON: 01 Oct 2018 TECHNIQUE: PA/lateral FINDINGS: Mild hyperexpansion the chest is observed. No infiltrate is detected. The heart is within range of normal. Chronic interstitial lung disease is noted. No pleural fluid is seen. IMPRESSION: I see no acute cardiopulmonary pathology. Electronically signed by: Earl Garza MD 04/16/2019 9:37 AM [employer] TIPPER MACHINE
== END ==
LOC: LAB.O 15:09
PROVIDERS: ATTEND Registered Nurse General Practice
DX: J44.1 Chronic obstructive pulmonary disease with (acute) exacerbation (principal); J20.9 Acute bronchitis, unspecified

== ENCOUNTER 2019-04-20 18:02 | Inpatient (IN) | payer MEDICARE ==
[2019-04-20] MEDS ORDERED: IPRATROPIUM/ALBUTEROL 3 ML VIAL NEB ONE ×4 (18:03→18:44)
--- NOTE | 2019-04-20 18:03 | HP ---
SUPERVISING PHYSICIAN: Venkat Powell M.D. CHIEF COMPLAINT: Failed outpatient treatment of chronic obstructive pulmonary disease exacerbation. HISTORY OF PRESENT ILLNESS: Mr. Vicente is a patient of Derek Blair. Derek saw the patient today in followup from recent treatment for a urinary tract infection and chronic obstructive pulmonary disease exacerbation. Last week he was started on steroids and a Z-Shantanu, but made poor progression. He was seen in followup appointment today noted to be worse despite aggressive treatment with steroids, antibiotics and nebulizer treatments. He does utilize a CPAP at home although he is unable to tolerate it currently. He was denying any chest pains, palpitations, syncopal episodes. He noted he was having a very mild productive cough, just worsening dyspnea even at rest. He is going to be directly admitted for further treatment and evaluation of chronic obstructive pulmonary disease exacerbation failing outpatient treatment plan. PAST MEDICAL HISTORY: 1. Chronic obstructive pulmonary disease. 2. Hypertension. 3. Benign prostatic hypertrophy. 4. Congestive heart failure, uncertain etiology, without echocardiogram available at time of admission. 5. Chronic tobacco abuse. He quit smoking in 2018. Still utilizing cigars. 6. Depression and anxiety. PAST SURGICAL HISTORY: 1. Left ankle fracture with open reduction and internal fixation in 1979. 2. Appendectomy. 3. Tonsillectomy. 4. Cholecystectomy. HOME MEDICATIONS: Awaiting updated list in the electronic medical records. ALLERGIES: NO KNOWN DRUG ALLERGIES. FAMILY HISTORY: Positive for chronic obstructive pulmonary disease, lung cancer and cardiovascular disease. SOCIAL HISTORY: The patient is disabled. He lives in [place]. He is . He does have a significant history of smoking over 50 years up to 1 to 3 packs daily but he quit in 2018, but continues to use tobacco in the form of cigars. He denies any illicit drug or alcohol usage. REVIEW OF SYSTEMS: CONSTITUTIONAL: Positive for general fatigue but negative for any fever or chills or general malaise or rigors. HEENT: Negative for any sinus, ear aches, sore throat, nasal congestion, vision changes. RESPIRATORY: Positive for worsening shortness of breath, wheezing and coughing, nonproductive. CARDIOVASCULAR: Denies any chest pains, palpitations or syncopal episodes. GASTROINTESTINAL: Negative for any nausea, vomiting, diarrhea or constipation. GENITOURINARY: Denies any dysuria, hematuria or polyuria. MUSCULOSKELETAL: Negative for arthralgias or myalgias. SKIN: Negative for any lesions, rashes or moles or unexplained changes. NEUROLOGIC: Negative for any seizures, ataxia or other focal deficits. HEMATOLOGIC: Denies any unexplained bleeding, bruising or transfusion reactions. PHYSICAL EXAMINATION: VITAL SIGNS: On admission, temperature 97.8, pulse 95, blood pressure 153/103, respirations 30, showing 97% on room air with some pursed lip breathing and use of accessory muscles. Admission weight is 139 kg. GENERAL: The patient is generally unwell-looking, unkempt, obese and in some mild distress due to respiratory difficulties. He is alert. CHEST: Lung sounds were diminished throughout with inspiratory and expiratory wheezing. No notable rhonchi or rales were noted. He is significantly diminished more towards the bases. CARDIOVASCULAR: Regular rate and rhythm with no appreciable murmurs, gallops, or rubs. ABDOMEN: Obese but soft, non-tender. Positive bowel sounds. EXTREMITIES: Without any edema. NEUROLOGIC: He is alert and oriented times three. Cranial nerves II-XII are grossly intact. SKIN: Warm, pink and dry. LABORATORY: White count showing to be at 22,500 with a left shift and 1% bands. Hemoglobin 16.5, hematocrit 50.8. Blood gas analysis showed a pH of 7.43 with pO2 of 79, pCO2 of 34, satting 96% on room air. Chemistries showed normal electrolytes with a BUN of 24, lactic acid was elevated at 2.5, calcium normal at 9.5, magnesium 2.0. Liver functions are all within normal limits. MICROBIOLOGY: Blood cultures are pending. RADIOLOGY: Chest x-ray just showed chronic obstructive pulmonary disease changes. No consolidations or effusions. ASSESSMENT: 1. Acute exacerbation of chronic obstructive pulmonary disease failing outpatient treatment plan with multiple doses of steroids and antibiotics. 2. Respiratory distress secondary to #1 requiring BiPAP. 3. Sepsis secondary to to #1 with a lactic acidosis and leukocytosis. 4. History of chronic tobacco abuse both in the form of cigarette smoking and cigar smoking. 5. Hypertension poorly controlled. 6. History of benign prostatic hypertrophy. 7. History of congestive heart failure with no echocardiogram at time of review. 8. Depression and anxiety. PLAN: Mr. Vicente is going to be admitted for initiation of treatment of chronic obstructive pulmonary disease exacerbation. He has had multiple rounds of steroids but failed to respond significantly to treatment, therefore will start him on some high dose Solu-Medrol 125 to followup every 6 hours at 80 mg with slow taper. He will be on continuous DuoNeb treatments until he is out of distress as well as utilize BiPAP as needed. He will be on deep venous thrombosis prophylaxis per protocol. Will put him on aggressive pulmonary hygiene with DuoNeb treatments. Will follow his labs closely. Blood cultures have been completed. Will go ahead and give him a bolus of normal saline and recheck his lactic acid in 4 hours, and address accordingly. Will resume his home medications once those are updated and verified and available as appropriate to care. Anticipate his length of stay to be at least 2 to 3 days. Will also go ahead and cover again with additional antibiotic coverage. Even though he is not showing any consolidation he is certainly at high risk with a degree of chronic obstructive pulmonary disease, therefore will continue with treatment for atypical coverage with azithromycin and gram positives to include Streptococcus pneumonia with Rocephin. Until we can transition him to oral medications will continue to monitor and treat as needed. #[id number] [facility]
[2019-04-20] MEDS ORDERED: ACETAMINOPHEN 325 MG TAB PO PRN (18:16)
[2019-04-20] MEDS ORDERED: ALBUTEROL SULFATE 2.5 MG/3 ML VIAL NEB PRN (18:16)
[2019-04-20] MEDS ORDERED: ONDANSETRON INJ 4 MG/2 ML VIAL IV PRN (18:16)
[2019-04-20] MEDS ORDERED: SODIUM CHLORIDE 0.9% 1000ML 1,000 ML IVS ONE (18:58)
--- NOTE | 2019-04-20 19:14 | RAD ---
EXAM: XR Chest, 2 Views CLINICAL HISTORY: COPD exacerbation TECHNIQUE: Frontal and lateral views of the chest. COMPARISON: 04/15/2019. FINDINGS: Limitations: None. Lungs: Stable chronic obstructive changes. No consolidation. Pleural space: Unremarkable. No pneumothorax. Heart: Unremarkable. No cardiomegaly. Mediastinum: Unremarkable. Bones/joints: Unremarkable. IMPRESSION: No acute findings in the chest. COPD. Electronically signed by: Eileen Moore MD 04/20/2019 7:12 PM [employer]
[2019-04-20] MEDS ORDERED: SODIUM CHLORIDE 0.9% 250ML 250 ML ONE (19:31)
[2019-04-20] MEDS ORDERED: cefTRIAXone SODIUM 1 GM VIAL ONE ×2 (19:32→21:01)
[2019-04-20] MEDS ORDERED: SODIUM CHL 0.9% 50ML MIN-BAG+ 50 ML IVPB ONE (19:32)
[2019-04-20] MEDS ORDERED: AZITHROMYCIN IV 500 MG VIAL IVPB ONE (19:33)
[2019-04-20] MEDS: IV SET AND CAP CHANGE INJ INJ SCH (19:35)
[2019-04-20] MEDS: AZITHROMYCIN IV 500 MG in SODIUM CHLORIDE 0.9% 250ML 250 ML IVPB SCH (19:38)
[2019-04-20] MEDS ORDERED: methylPREDNISolone SODIUM SUC 125 MG/2 ML VIAL IV ONE (20:00)
[2019-04-20] MEDS: IPRATROPIUM/ALBUTEROL 3 ML VIAL INH SCH (20:05)
[2019-04-20] MEDS ORDERED: SODIUM CHLORIDE 0.9% 50ML 0 ML ONE (21:01)
[2019-04-20] MEDS: ENOXAPARIN SODIUM 40 MG/0.4 ML SYG SUBCU SCH (21:35)
[2019-04-20] MEDS: cefTRIAXone SODIUM 1 GM in SODIUM CHL 0.9% 50ML MIN-BAG+ 50 ML IVPB SCH (21:37)
[2019-04-20] MEDS: CARVEDILOL 3.125 MG TAB PO SCH (22:38)
[2019-04-21] MEDS: SODIUM CHLORIDE 0.9% (FLUSH) 10 ML SYG IV PRN ×2 (01:31→05:48)
[2019-04-21] MEDS ORDERED: methylPREDNISolone SODIUM SUC 125 MG/2 ML VIAL IV SCH (02:00)
[2019-04-21] MEDS: PANTOPRAZOLE SODIUM IV 40 MG VIAL IV SCH (05:47)
--- NOTE | 2019-04-21 07:04 | RAD ---
EXAM: XR Chest, 2 Views CLINICAL HISTORY: copd TECHNIQUE: Frontal and lateral views of the chest. COMPARISON: 04/20/2019. FINDINGS: Limitations: None. Lungs: Chronic obstructive changes. No consolidation. Pleural space: Unremarkable. No pneumothorax. Heart: Unremarkable. No cardiomegaly. Mediastinum: Unremarkable. Bones/joints: Unremarkable. IMPRESSION: Stable chronic changes. Electronically signed by: Eileen Moore MD 04/21/2019 7:03 AM HEALTHCARE ADMINISTRATIVE ASSISTANT
[2019-04-21] MEDS ORDERED: CITALOPRAM HBR 20 MG TAB ONE (08:00)
[2019-04-21] MEDS: IPRATROPIUM/ALBUTEROL 3 ML VIAL INH SCH (08:00)
[2019-04-21] MEDS ORDERED: LOSARTAN POTASSIUM 25 MG TAB ONE (08:00)
[2019-04-21] MEDS: ASPIRIN (CHEWABLE) 81 MG TAB PO SCH (08:21)
[2019-04-21] MEDS: CARVEDILOL 3.125 MG TAB PO SCH ×2 (08:21→20:21)
[2019-04-21] MEDS: methylPREDNISolone SODIUM SUC 125 MG/2 ML VIAL IV SCH ×3 (08:22→17:50)
[2019-04-21] MEDS ORDERED: NON-FORMULARY MEDICATION 1 EA MIS (Losartan Potassium [Losartan Potassium] 50 MG) PO SCH (09:00)
[2019-04-21] MEDS ORDERED: CITALOPRAM HYDROBROMIDE 20 MG PO SCH (09:00)
--- NOTE | 2019-04-21 11:49 | PN ---
SUPERVISING PHYSICIAN: Venkat Powell MD DATE: 04/21/19 SUBJECTIVE: The patient is lying in bed. He complains of shortness of breath, but he feels he is getting somewhat better. He denies constipation, diarrhea, chest pain. OBJECTIVE: VITAL SIGNS: Temperature 97.5. Heart rate 74. Blood pressure 174/84. Respiratory rate 24 to 26. O2 saturation 94% on room air. RESPIRATORY: Expiratory wheezes throughout. He does have some abdominal breathing and he is tachypneic with his respiratory rate being in the mid-20s. He does have to speak in short phrases due to his obvious shortness of breath. CARDIAC: Regular rate and rhythm. GASTROINTESTINAL: Abdomen is rounded, soft, nondistended. Bowel sounds are positive. NEUROLOGIC: Awake, alert and oriented times three. LABORATORY: WBCs slightly improved 20,700 with hemoglobin 15.8, hematocrit 48.7. Chemistry is basically within normal limits with a slightly elevated BUN of 22. Lactic acid is normal now at 1.5. Blood cultures are pending. Chest x- ray shows stable chronic changes. All other labs and films have been reviewed via the EMR. ASSESSMENT: 1. Acute exacerbation of chronic obstructive pulmonary disease failing outpatient treatment plan with multiple doses of steroids and antibiotics. 2. Respiratory distress secondary to #1, requiring BiPAP. He did have a 79 pCO2 per ABG on admission. 3. Sepsis secondary to #1 with a lactic acidosis and leukocytosis as well as tachypnea. 4. History of chronic tobacco abuse both in the form of cigarette smoking and cigar smoking. 5. Hypertension, poorly controlled. 6. History of benign prostatic hypertrophy. 7. History of congestive heart failure with no echocardiogram at time of review. 8. Depression and anxiety. PLAN: We will continue present supportive care. We will titrate his steroids down slowly and continue aggressive pulmonary hygiene. I will get a sputum culture and we will monitor his blood cultures. We discussed tobacco cessation. He agrees that he must do that. I may need to adjust some of his antihypertensive medicines to get better control of his blood pressure. He will also need an echocardiogram after discharge as we currently do not have one to review. Hopefully he can be discharged in the next two to three days and go home on antibiotics as well as oral prednisone. We will We will continue to monitor the patient closely and follow as needed. #[id number] [facility]
[2019-04-21] MEDS: IPRATROPIUM/ALBUTEROL 3 ML VIAL NEB SCH ×3 (12:28→20:28)
[2019-04-21] MEDS ORDERED: SODIUM CHLORIDE 0.9% 250ML 250 ML ONE (19:40)
[2019-04-21] MEDS ORDERED: AZITHROMYCIN IV 500 MG VIAL IVPB ONE (19:41)
[2019-04-21] MEDS: AZITHROMYCIN IV 500 MG in SODIUM CHLORIDE 0.9% 250ML 250 ML IVPB SCH (19:46)
[2019-04-21] MEDS: SIMVASTATIN 10 MG TAB PO SCH (20:20)
[2019-04-21] MEDS: MONTELUKAST 10 MG TAB PO SCH (20:20)
[2019-04-21] MEDS: TERAZOSIN 1 MG CAP PO SCH (20:20)
[2019-04-21] MEDS: ENOXAPARIN SODIUM 40 MG/0.4 ML SYG SUBCU SCH (20:20)
[2019-04-21] MEDS: cefTRIAXone SODIUM 1 GM in SODIUM CHL 0.9% 50ML MIN-BAG+ 50 ML IVPB SCH ×2 (21:05→21:55)
[2019-04-21] MEDS ORDERED: SODIUM CHL 0.9% 50ML MIN-BAG+ 50 ML IVPB ONE (21:06)
[2019-04-21] MEDS ORDERED: cefTRIAXone SODIUM 1 GM VIAL ONE (21:07)
[2019-04-21] MEDS: NON-FORMULARY MEDICATION 1 EA MIS (Budesonide-Formoterol Fumarate [Symbicort 160-4.5 Mcg/A INH SCH (22:13)
[2019-04-22] MEDS: methylPREDNISolone SODIUM SUC 125 MG/2 ML VIAL IV SCH (00:04)
[2019-04-22] MEDS: PANTOPRAZOLE SODIUM IV 40 MG VIAL IV SCH (06:09)
[2019-04-22] MEDS: IPRATROPIUM/ALBUTEROL 3 ML VIAL NEB SCH (08:35)
[2019-04-22] MEDS: LOSARTAN POTASSIUM 25 MG TAB PO SCH (08:36)
[2019-04-22] MEDS: CITALOPRAM HBR 20 MG TAB PO SCH (08:36)
[2019-04-22] MEDS: CARVEDILOL 3.125 MG TAB PO SCH ×2 (08:36→21:13)
[2019-04-22] MEDS: NON-FORMULARY MEDICATION 1 EA MIS (Budesonide-Formoterol Fumarate [Symbicort 160-4.5 Mcg/A INH SCH (08:36)
[2019-04-22] MEDS: ASPIRIN (CHEWABLE) 81 MG TAB PO SCH (08:36)
[2019-04-22] MEDS ORDERED: UMECLIDINIUM BROMIDE 62.5 MG INH SCH (09:00)
[2019-04-22] MEDS ORDERED: methylPREDNISolone SODIUM SUC 40 MG/ML VIAL ONE (10:18)
[2019-04-22] MEDS: guaiFENesin ER TAB 600 MG TAB PO SCH ×2 (10:19→21:13)
--- NOTE | 2019-04-22 11:19 | PN ---
SUPERVISING PHYSICIAN: Venkat Powell MD DATE: 04/22/19 SUBJECTIVE: The patient is sitting in bed. He is somewhat short of breath, but he did just get up to go to the restroom. He feels better than yesterday although he still has some shortness of breath. There is no chest pain, nausea, vomiting, diarrhea or constipation. OBJECTIVE: VITAL SIGNS: Temperature 97.1. Heart rate 69. Blood pressure 133/76. Respiratory rate 18 to 24 breaths per minute. O2 saturation 93% on the BiPAP machine. It is 90% on 2 liters nasal cannula. RESPIRATORY: He has a few expiratory wheezes in the upper lung manuel, diminished at the bases. He is tachypneic with any exertion. CARDIAC: Regular rate and rhythm. GASTROINTESTINAL: Abdomen is rounded and obese, soft, nontender. Bowel sounds are positive. NEUROLOGIC: Awake, alert and oriented times three. LABORATORY: WBCs slightly improved to 19,900 with hemoglobin 15.3, hematocrit 47.1. There is a left shift on his differential. Electrolytes are basically within normal limits with BUN 22, creatinine 0.96. Sputum culture is pending. Preliminary blood cultures show no growth after 24 hours. All other labs and films have been reviewed via the EMR. ASSESSMENT: 1. Acute exacerbation of chronic obstructive pulmonary disease failing outpatient treatment plan with multiple doses of steroids and antibiotics. 2. Respiratory distress secondary to #1, requiring BiPAP. He did have a 79 pCO2 per ABG on admission. 3. Sepsis secondary to #1 with a lactic acidosis and leukocytosis as well as tachypnea. 4. History of chronic tobacco abuse both in the form of cigarette smoking and cigar smoking. 5. Hypertension, poorly controlled. 6. History of benign prostatic hypertrophy. 7. History of congestive heart failure with no echocardiogram at time of review. 8. Depression and anxiety. PLAN: We will continue present supportive care. I continue to titrate his steroids down and he will change to oral prednisone tomorrow. We will continue with aggressive pulmonary hygiene and monitor his cultures as they are available and continue with the present antibiotics until those are available. His CPAP machine is well over 5 years old and I told him we would try to get a new one for him plus he does have a nebulizer machine at home. His blood pressure has improved since he has been started on his home medications. He will need an echocardiogram after discharge. We will continue to monitor the patient closely and follow as needed. [facility][id number] [facility]
[2019-04-22] MEDS: BUDESONIDE/FORMOTEROL 160/4.5 60 PUFF/6 GM INH INH SCH ×2 (11:30→20:32)
[2019-04-22] MEDS: UMECLIDINIUM BROMIDE 62.5 MG INH SCH (11:30)
[2019-04-22] MEDS: ALBUTEROL SULFATE 2.5 MG/3 ML VIAL NEB SCH ×3 (12:45→20:31)
[2019-04-22] MEDS: methylPREDNISolone SODIUM SUC 40 MG/ML VIAL IV SCH ×2 (13:54→21:49)
[2019-04-22] MEDS ORDERED: SODIUM CHL 0.9% 50ML MIN-BAG+ 50 ML IVPB ONE (19:27)
[2019-04-22] MEDS ORDERED: SODIUM CHLORIDE 0.9% 250ML 250 ML ONE (19:27)
[2019-04-22] MEDS ORDERED: cefTRIAXone SODIUM 1 GM VIAL ONE (19:27)
[2019-04-22] MEDS ORDERED: AZITHROMYCIN IV 500 MG VIAL IVPB ONE (19:28)
[2019-04-22] MEDS: AZITHROMYCIN IV 500 MG in SODIUM CHLORIDE 0.9% 250ML 250 ML IVPB SCH (19:32)
[2019-04-22] MEDS: TERAZOSIN 1 MG CAP PO SCH (21:13)
[2019-04-22] MEDS: MONTELUKAST 10 MG TAB PO SCH (21:13)
[2019-04-22] MEDS: ENOXAPARIN SODIUM 40 MG/0.4 ML SYG SUBCU SCH (21:14)
[2019-04-22] MEDS: SIMVASTATIN 10 MG TAB PO SCH (21:14)
[2019-04-22] MEDS: cefTRIAXone SODIUM 1 GM in SODIUM CHL 0.9% 50ML MIN-BAG+ 50 ML IVPB SCH (21:49)
[2019-04-22] MEDS: TEMAZEPAM 15 MG CAP PO PRN (22:00)
[2019-04-23] MEDS: ALBUTEROL SULFATE 2.5 MG/3 ML VIAL NEB PRN (02:08)
[2019-04-23] MEDS: methylPREDNISolone SODIUM SUC 40 MG/ML VIAL IV SCH (06:00)
[2019-04-23] MEDS: PANTOPRAZOLE SODIUM IV 40 MG VIAL IV SCH (06:01)
[2019-04-23] MEDS: BUDESONIDE/FORMOTEROL 160/4.5 60 PUFF/6 GM INH INH SCH ×2 (08:30→20:21)
[2019-04-23] MEDS: UMECLIDINIUM BROMIDE 62.5 MG INH SCH (08:30)
[2019-04-23] MEDS: ALBUTEROL SULFATE 2.5 MG/3 ML VIAL NEB SCH ×4 (08:30→20:20)
[2019-04-23] MEDS: guaiFENesin ER TAB 600 MG TAB PO SCH ×2 (09:34→20:53)
[2019-04-23] MEDS: ASPIRIN (CHEWABLE) 81 MG TAB PO SCH (09:34)
[2019-04-23] MEDS: predniSONE 20 MG TAB PO SCH (09:34)
[2019-04-23] MEDS: LOSARTAN POTASSIUM 25 MG TAB PO SCH (09:34)
[2019-04-23] MEDS: CARVEDILOL 3.125 MG TAB PO SCH ×2 (09:35→20:53)
[2019-04-23] MEDS: CITALOPRAM HBR 20 MG TAB PO SCH (09:35)
[2019-04-23] MEDS: IV SET AND CAP CHANGE INJ INJ SCH (18:10)
[2019-04-23] MEDS ORDERED: SODIUM CHLORIDE 0.9% 250ML 250 ML ONE (19:17)
[2019-04-23] MEDS ORDERED: SODIUM CHL 0.9% 50ML MIN-BAG+ 50 ML IVPB ONE (19:17)
[2019-04-23] MEDS ORDERED: cefTRIAXone SODIUM 1 GM VIAL ONE (19:18)
[2019-04-23] MEDS ORDERED: AZITHROMYCIN IV 500 MG VIAL IVPB ONE (19:18)
[2019-04-23] MEDS: AZITHROMYCIN IV 500 MG in SODIUM CHLORIDE 0.9% 250ML 250 ML IVPB SCH (19:29)
--- NOTE | 2019-04-23 20:34 | PN ---
DATE: 04/23/19 SUPERVISING PHYSICIAN: Venkat Powell M.D. SUBJECTIVE: The patient is sitting up on the side of the bed. He still complains of some shortness of breath and the need for the BiPAP, but he is able to walk 10 to 20 feet down the jacob with minimal shortness of breath, but has to go back to his room and get back on the BiPAP. He does use oxygen in the hallways. He still has a cough that is somewhat productive. There is no chest pain, nausea, vomiting, constipation or diarrhea. OBJECTIVE: VITAL SIGNS: Temperature 98, heart rate 66, blood pressure 163/84, respiratory rate 22, O2 saturation 94% on BiPAP. RESPIRATORY: Diminished at the bases. Some scattered rhonchi. CARDIAC: Regular rate and rhythm. GASTROINTESTINAL: Abdomen is soft, nondistended, non-tender. Bowel sounds are positive. NEUROLOGIC: He is awake, alert and oriented times three. LABORATORY: White blood cells 16,300 with hemoglobin 15.7, hematocrit 49. He does have a left shift on his differential. Electrolytes are within normal limits except his chloride is slightly low at 98. Sputum culture is pending. Preliminary blood cultures show no growth after 48 hours. All other labs and films have been reviewed via the EMR. ASSESSMENT: 1. Acute exacerbation of chronic obstructive pulmonary disease failing outpatient treatment plan with multiple doses of steroids and antibiotics. 2. Respiratory distress secondary to #1, requiring BiPAP. He did have a 79 pCO2 per ABG on admission. 3. Sepsis secondary to #1 with a lactic acidosis and leukocytosis as well as tachypnea. 4. History of chronic tobacco abuse both in the form of cigarette smoking and cigar smoking. 5. Hypertension, poorly controlled. 6. History of benign prostatic hypertrophy. 7. History of congestive heart failure with no echocardiogram at time of review. 8. Depression and anxiety. PLAN: We will continue current plan of care. I have ordered some arterial blood gases to adjust his BiPAP as he will most likely need to go home on a BiPAP machine. He will need more invasive ventilatory support. I believe that the CPAP will not be enough for him. Will make adjustments as necessary and get that ordered tomorrow. Otherwise I will continue to monitor his cultures. I have ordered lab and a chest x-ray for in the morning. Will continue to monitor closely and follow as needed. #[id number] [facility]
[2019-04-23] MEDS: MONTELUKAST 10 MG TAB PO SCH (20:53)
[2019-04-23] MEDS: TERAZOSIN 1 MG CAP PO SCH (20:53)
[2019-04-23] MEDS: SIMVASTATIN 10 MG TAB PO SCH (20:53)
[2019-04-23] MEDS: TEMAZEPAM 15 MG CAP PO PRN (20:53)
[2019-04-23] MEDS: ENOXAPARIN SODIUM 40 MG/0.4 ML SYG SUBCU SCH (20:54)
[2019-04-23] MEDS: cefTRIAXone SODIUM 1 GM in SODIUM CHL 0.9% 50ML MIN-BAG+ 50 ML IVPB SCH (21:28)
[2019-04-24] MEDS: ALBUTEROL SULFATE 2.5 MG/3 ML VIAL NEB PRN (05:31)
[2019-04-24] MEDS: PANTOPRAZOLE SODIUM IV 40 MG VIAL IV SCH (06:27)
--- NOTE | 2019-04-24 06:53 | RAD ---
CLINICAL HISTORY: copd COMPARISON: April 21, 2019. TECHNIQUE: XR CHEST 2 VIEWS 04/24/2019 5:00 AM SHRIMP PEELING MACHINE TENDER FINDINGS: The heart is mildly enlarged. Lungs are hyperinflated. There is no pleural effusion. There is no pneumothorax. There are no acute osseous findings. IMPRESSION: Emphysema without pneumonia. Electronically signed by: Constantino Lagos MD 04/24/2019 6:51 AM SHRIMP PEELING MACHINE TENDER
[2019-04-24] MEDS: ALBUTEROL SULFATE 2.5 MG/3 ML VIAL NEB SCH ×4 (08:28→20:30)
[2019-04-24] MEDS: BUDESONIDE/FORMOTEROL 160/4.5 60 PUFF/6 GM INH INH SCH ×2 (08:28→20:30)
[2019-04-24] MEDS: UMECLIDINIUM BROMIDE 62.5 MG INH SCH (08:29)
[2019-04-24] MEDS: LOSARTAN POTASSIUM 25 MG TAB PO SCH (09:44)
[2019-04-24] MEDS: ASPIRIN (CHEWABLE) 81 MG TAB PO SCH (09:44)
[2019-04-24] MEDS: predniSONE 20 MG TAB PO SCH (09:44)
[2019-04-24] MEDS: CARVEDILOL 3.125 MG TAB PO SCH ×2 (09:44→20:31)
[2019-04-24] MEDS: CITALOPRAM HBR 20 MG TAB PO SCH (09:45)
[2019-04-24] MEDS: guaiFENesin ER TAB 600 MG TAB PO SCH ×2 (09:45→20:31)
[2019-04-24] MEDS: CHLORTHALIDONE 25 MG TAB PO SCH (14:36)
[2019-04-24] MEDS: NICOTINE PATCH 21 MG TD SCH (15:24)
[2019-04-24] MEDS ORDERED: SODIUM CHLORIDE 0.9% 250ML 250 ML ONE (18:59)
[2019-04-24] MEDS ORDERED: SODIUM CHL 0.9% 50ML MIN-BAG+ 50 ML IVPB ONE (18:59)
[2019-04-24] MEDS ORDERED: AZITHROMYCIN IV 500 MG VIAL IVPB ONE (19:00)
[2019-04-24] MEDS ORDERED: cefTRIAXone SODIUM 1 GM VIAL ONE (19:00)
[2019-04-24] MEDS: AZITHROMYCIN IV 500 MG in SODIUM CHLORIDE 0.9% 250ML 250 ML IVPB SCH (19:21)
[2019-04-24] MEDS: TERAZOSIN 1 MG CAP PO SCH (20:31)
[2019-04-24] MEDS: SIMVASTATIN 10 MG TAB PO SCH (20:31)
[2019-04-24] MEDS: MONTELUKAST 10 MG TAB PO SCH (20:31)
[2019-04-24] MEDS: TEMAZEPAM 15 MG CAP PO PRN (20:31)
[2019-04-24] MEDS: ENOXAPARIN SODIUM 40 MG/0.4 ML SYG SUBCU SCH (20:31)
--- NOTE | 2019-04-24 21:10 | PN ---
DATE: 04/24/19 SUPERVISING PHYSICIAN: Venkat Powell M.D. SUBJECTIVE: The patient is sitting up in bed. He is using his BiPAP. He took it off for a few minutes and put on nasal cannula and he feels much improved with minimal shortness of breath. We discussed that we were changing him from CPAP to BiPAP and that he would have to wait until Friday so his order could be filled at the [facility]. He could not believe how well he slept with the BiPAP machine and denies any chest pain, nausea, vomiting or diarrhea. OBJECTIVE: VITAL SIGNS: Temperature 98.5, heart rate 65, blood pressure 153/87, respiratory rate 19 to 22, O2 saturation 96% on BiPAP. It does drop to the low 90s on nasal cannula and it drops to the upper 80s with exertion on nasal cannula. RESPIRATORY: Diminished breath sounds throughout with a few scattered rhonchi. CARDIAC: Regular rate and rhythm. GASTROINTESTINAL: Abdomen is soft, nondistended, non-tender. Bowel sounds are positive. NEUROLOGIC: He is awake, alert and oriented times three. LABORATORY: WBCs have improved to 13,400 with hemoglobin 14.9 and hematocrit 46.1. He does have a left shift on differential. Followup ABG after BiPAP adjustment is pCO2 of 32, pO2 of 91, bicarb 25.6 with a pH of 7.5. O2 saturation is 95%. Electrolytes are basically within normal limits with the exception of his calcium is slightly low at 8.2. BUN 29, creatinine 1.14. Preliminary blood cultures show no growth after 3 days. His final sputum cultures shows oropharyngeal contamination. Chest x-ray shows emphysema without pneumonia. All other labs and films have been reviewed via the EMR. ASSESSMENT: 1. Acute exacerbation of chronic obstructive pulmonary disease failing outpatient treatment plan with multiple doses of steroids and antibiotics. 2. Respiratory distress secondary to #1, requiring BiPAP. He did have a 79 pCO2 per ABG on admission. 3. Sepsis secondary to #1 with a lactic acidosis and leukocytosis as well as tachypnea. 4. History of chronic tobacco abuse both in the form of cigarette smoking and cigar smoking. 5. Hypertension, poorly controlled. 6. History of benign prostatic hypertrophy. 7. History of congestive heart failure with no echocardiogram at time of review. 8. Depression and anxiety. PLAN: We will continue present supportive care. We will need to fax the BiPAP ordered to [facility] and hopefully they can get that set up on Friday so he can be discharged at that time. I did order another CBC tomorrow to monitor his white count. Will continue to monitor closely and follow as needed. #[id number] [facility]
[2019-04-24] MEDS: cefTRIAXone SODIUM 1 GM in SODIUM CHL 0.9% 50ML MIN-BAG+ 50 ML IVPB SCH (21:56)
[2019-04-25] MEDS: PANTOPRAZOLE SODIUM IV 40 MG VIAL IV SCH (06:11)
[2019-04-25] MEDS: UMECLIDINIUM BROMIDE 62.5 MG INH SCH (07:40)
[2019-04-25] MEDS: BUDESONIDE/FORMOTEROL 160/4.5 60 PUFF/6 GM INH INH SCH ×2 (07:40→20:42)
[2019-04-25] MEDS: ALBUTEROL SULFATE 2.5 MG/3 ML VIAL NEB SCH ×4 (07:40→20:42)
[2019-04-25] MEDS: guaiFENesin ER TAB 600 MG TAB PO SCH ×2 (09:01→19:52)
[2019-04-25] MEDS: CITALOPRAM HBR 20 MG TAB PO SCH (09:01)
[2019-04-25] MEDS: CARVEDILOL 3.125 MG TAB PO SCH ×2 (09:01→19:52)
[2019-04-25] MEDS: predniSONE 20 MG TAB PO SCH (09:01)
[2019-04-25] MEDS: CHLORTHALIDONE 25 MG TAB PO SCH (09:01)
[2019-04-25] MEDS: NICOTINE PATCH 21 MG TD SCH (09:01)
[2019-04-25] MEDS: LOSARTAN POTASSIUM 25 MG TAB PO SCH (09:02)
[2019-04-25] MEDS: ASPIRIN (CHEWABLE) 81 MG TAB PO SCH (09:02)
[2019-04-25] MEDS ORDERED: SODIUM CHL 0.9% 50ML MIN-BAG+ 50 ML IVPB ONE (19:24)
[2019-04-25] MEDS ORDERED: SODIUM CHLORIDE 0.9% 250ML 250 ML ONE (19:24)
[2019-04-25] MEDS ORDERED: cefTRIAXone SODIUM 1 GM VIAL ONE (19:25)
[2019-04-25] MEDS ORDERED: AZITHROMYCIN IV 500 MG VIAL IVPB ONE (19:25)
[2019-04-25] MEDS: AZITHROMYCIN IV 500 MG in SODIUM CHLORIDE 0.9% 250ML 250 ML IVPB SCH (19:47)
[2019-04-25] MEDS: ENOXAPARIN SODIUM 40 MG/0.4 ML SYG SUBCU SCH (19:52)
[2019-04-25] MEDS: SIMVASTATIN 10 MG TAB PO SCH (19:52)
[2019-04-25] MEDS: TERAZOSIN 1 MG CAP PO SCH (19:52)
[2019-04-25] MEDS: MONTELUKAST 10 MG TAB PO SCH (19:52)
[2019-04-25] MEDS: TEMAZEPAM 15 MG CAP PO PRN (19:53)
--- NOTE | 2019-04-25 21:27 | PN ---
DATE: 04/25/19 SUPERVISING PHYSICIAN: Venkat Powell M.D. SUBJECTIVE: The patient is sitting up in bed. He has his BiPAP on. After taking it off and putting on his oxygen, he says that he has not slept this well in years and he feels so much better. Still continues to have some shortness of breath with exertion but the BiPAP has helped him sleep. He is able to cough up phlegm as well as get adequate rest. Denies chest pain, nausea, vomiting, diarrhea or constipation. OBJECTIVE: VITAL SIGNS: Temperature 98.0, heart rate 67, blood pressure 151/84, respiratory rate 22 to 24, O2 saturation is 90% on his nasal cannula. He is at 93 to 95% on his BiPAP. RESPIRATORY: Diminished breath sounds throughout with a few scattered crackles and rhonchi. He is tachypneic and has to speak in short phrases. CARDIAC: Regular rate and rhythm. GASTROINTESTINAL: Abdomen is soft, nondistended, non-tender.. Bowel sounds are positive. EXTREMITIES: No clubbing, cyanosis or edema. NEUROLOGIC: He is awake, alert and oriented times three. LABORATORY: WBCs have improved to 12,900 with hemoglobin 15.1, hematocrit 46.9. Electrolytes are within normal limits with the exception of his calcium is slightly low at 8.2. Preliminary blood cultures show no growth after 4 days. All other labs and films have been reviewed via the EMR. ASSESSMENT: 1. Acute exacerbation of chronic obstructive pulmonary disease failing outpatient treatment plan with multiple doses of steroids and antibiotics. 2. Respiratory distress secondary to #1, requiring BiPAP. He did have a 79 pCO2 per ABG on admission. 3. Sepsis secondary to #1 with a lactic acidosis and leukocytosis as well as tachypnea. 4. History of chronic tobacco abuse both in the form of cigarette smoking and cigar smoking. 5. Hypertension, poorly controlled. 6. History of benign prostatic hypertrophy. 7. History of congestive heart failure with no echocardiogram at time of review. 8. Depression and anxiety. PLAN: We will continue present supportive care. His BiPAP prescription has been written and it is in his chart that can be sent to [facility] tomorrow, and hopefully we can get him okayed for a BiPAP and have his BiPAP set up at home so he can be discharged tomorrow. Will continue aggressive pulmonary hygiene. His labs have almost normalized. I will not repeat those tomorrow. Hopefully he can be discharged with close followup with Derek Krutz in the next week. Will continue to monitor closely and follow as needed. #[id number] [facility]
[2019-04-25] MEDS: cefTRIAXone SODIUM 1 GM in SODIUM CHL 0.9% 50ML MIN-BAG+ 50 ML IVPB SCH (22:37)
[2019-04-26] MEDS: PANTOPRAZOLE SODIUM IV 40 MG VIAL IV SCH (06:05)
[2019-04-26] MEDS: BUDESONIDE/FORMOTEROL 160/4.5 60 PUFF/6 GM INH INH SCH (07:42)
[2019-04-26] MEDS: UMECLIDINIUM BROMIDE 62.5 MG INH SCH (07:42)
[2019-04-26] MEDS: ALBUTEROL SULFATE 2.5 MG/3 ML VIAL NEB SCH ×3 (07:42→16:32)
[2019-04-26] MEDS: CITALOPRAM HBR 20 MG TAB PO SCH (08:13)
[2019-04-26] MEDS: NICOTINE PATCH 21 MG TD SCH (08:13)
[2019-04-26] MEDS: CHLORTHALIDONE 25 MG TAB PO SCH (08:13)
[2019-04-26] MEDS: LOSARTAN POTASSIUM 25 MG TAB PO SCH (08:13)
[2019-04-26] MEDS: predniSONE 20 MG TAB PO SCH (08:13)
[2019-04-26] MEDS: ASPIRIN (CHEWABLE) 81 MG TAB PO SCH (08:13)
[2019-04-26] MEDS: CARVEDILOL 3.125 MG TAB PO SCH (08:13)
[2019-04-26] MEDS: guaiFENesin ER TAB 600 MG TAB PO SCH (08:15)
[2019-04-26 14:49] VITALS: BP 122/79; TEMP 97.5
[2019-04-26 18:13] VITALS: O2SAT 100
[2019-04-27] MEDS ORDERED: PANTOPRAZOLE SODIUM TAB 40 MG PO SCH (06:30)
--- NOTE | 2019-05-10 09:07 | DS ---
SUPERVISING PHYSICIAN: Brent Bullard MD ADMISSION DIAGNOSIS: 1. Acute exacerbation of chronic obstructive pulmonary disease failing outpatient treatment plan with multiple doses of steroids and antibiotics. 2. Respiratory distress secondary to #1 requiring BiPAP. 3. Sepsis secondary to to #1 with a lactic acidosis and leukocytosis. 4. History of chronic tobacco abuse both in the form of cigarette smoking and cigar smoking. 5. Hypertension poorly controlled. 6. History of benign prostatic hypertrophy. 7. History of congestive heart failure with no echocardiogram at time of review. 8. Depression and anxiety. DISCHARGE DIAGNOSIS: 1. Acute exacerbation of chronic obstructive pulmonary disease failing outpatient treatment plan with multiple doses of steroids and antibiotics. 2. Respiratory distress secondary to #1, requiring BiPAP. He did have a 79 pCO2 per ABG on admission. 3. Sepsis secondary to #1 with a lactic acidosis and leukocytosis as well as tachypnea. 4. History of chronic tobacco abuse both in the form of cigarette smoking and cigar smoking. 5. Hypertension, poorly controlled. 6. History of benign prostatic hypertrophy. 7. History of congestive heart failure with no echocardiogram at time of review. 8. Depression and anxiety. REASON FOR HOSPITALIZATION: Mr. Vicente is a patient of Derek Blair. Derek saw the patient today in followup from recent treatment for a urinary tract infection and chronic obstructive pulmonary disease exacerbation. Last week he was started on steroids and a Z-Shatnanu, but made poor progression. He was seen in followup appointment today noted to be worse despite aggressive treatment with steroids, antibiotics and nebulizer treatments. He does utilize a CPAP at home although he is unable to tolerate it currently. He was denying any chest pains, palpitations, syncopal episodes. He noted he was having a very mild productive cough, just worsening dyspnea even at rest. He is going to be directly admitted for further treatment and evaluation of chronic obstructive pulmonary disease exacerbation failing outpatient treatment plan. LABORATORY: White count on admission was 22,500, at discharge was 12,900. Hemoglobin and hematocrit were stable at 15.1 and 46.9 respectively. Platelet count was within normal limits at 268,000. Differential did show a left shift with bands on admission. Prior to discharge, the left shift had resolved. His blood gas analysis, he had multiple. Initially, he had pH 7.43, pCO2 34, pO2 79. Last blood gas showed he was alkalotic with a pH 7.5, pCO2 32, pO2 91, satting 96% on BiPAP. Chemistries initially on admission showed electrolytes within normal limits with BUN 24, creatinine 1.15, initial lactic acid 2.5. After treatment it normalized to 1.5. Magnesium normal at 2.0, calcium normal at 9.5. Liver functions all within normal limits. BNP normal at 100. Final chemistries showed normal electrolytes with BUN 29, creatinine 1.14. MICROBIOLOGY: Blood cultures remained negative after 5 days. Sputum culture was collected, but deemed contaminant and therefore cancelled. RADIOLOGY: Chest x-ray initially on admission showed no acute findings of the chest other than COPD. He had a final chest x-ray on 04/24/19 and per radiologic interpretation showed emphysema without pneumonia. HOSPITAL COURSE: Mr. Vicente was admitted on 04/20/19 for chronic obstructive pulmonary disease exacerbation. He was started on treatment with antibiotic coverage, steroids and required BiPAP. Antibiotic coverage included Rocephin and azithromycin. He was able to be weaned off BiPAP and was showing good clinical response to treatment. He was tapered off to oral prednisone and felt stable enough to discharge to continue with outpatient management. PLAN: Mr. Vicente was discharged on 04/26/19 to have close clinical followup with Derek Kurtz. He was to resume all his medications as directed. He was to finish his steroid taper that had been prescribed prior to admission by Derek Kurtz and to take [id number] probiotic as instructed. He was to continue all home medications as prior to hospitalization. No new medications were provided at discharge. CONDITION ON DISCHARGE: Stable and improved. DISPOSITION: The patient was discharged home. #[id number] [facility]
== END 2019-04-26 18:10 | disposition home or self-care (01) | DRG 872 ==
LOC: MS 18:02 → OBSVTOIN 18:02
PROVIDERS: ADMIT Nurse Practitioner Family; ATTEND Nurse Practitioner Family
DX: A41.9 Sepsis, unspecified organism (principal); J44.1 Chronic obstructive pulmonary disease with (acute) exacerbation; E87.2 Acidosis; I11.0 Hypertensive heart disease with heart failure; I50.9 Heart failure, unspecified; N40.0 Benign prostatic hyperplasia without lower urinary tract symptoms; F32.9 Major depressive disorder, single episode, unspecified; F41.9 Anxiety disorder, unspecified; E66.9 Obesity, unspecified; F17.210 Nicotine dependence, cigarettes, uncomplicated; Z87.01 Personal history of pneumonia (recurrent); Z68.39 Body mass index [BMI] 39.0-39.9, adult

== ENCOUNTER → 2019-05-03 | Outpatient (CLI) | payer MEDICARE | LOC: SL 19:17 | PROVIDERS: ATTEND Registered Nurse General Practice | DX: G47.33 Obstructive sleep apnea (adult) (pediatric) (principal); I27.9 Pulmonary heart disease, unspecified ==

== ENCOUNTER 2019-12-16 11:17 | Inpatient (IN) | payer MEDICARE, OTHER ==
--- NOTE | 2019-12-16 11:26 | ED.PDOC ---
History of Present Illness - General Chief Complaint: Respiratory Problem Time Seen by Provider: 12/16/19 11:23 Source: patient, RN notes reviewed, Vital Signs reviewed Exam Limitations: no limitations - History of Present Illness Initial Comments: 69 y/o male with progressive onset of SOB about 2 days. Especially bad with exertion. Minimal chest pain. He has a dry cough, hx of COPD. Doesn't require home O2. No f/c, n/v/d. Timing/Duration: days, getting worse Severity: severe Activities at Onset: none Possible Cause: occasional episodes, smoke exposure, other Improving Factors: rest Worsening Factors: movement Associated Symptoms: cough Allergies/Adverse Reactions: Allergies NO KNOWN ALLERGY Allergy (Verified 12/16/19 13:03) Home Medications: Ambulatory Orders Aspirin [Baby Aspirin] 81 mg PO DAILY 04/21/14 Terazosin HCl 2 mg PO BEDTIME 04/21/14 Omeprazole [Prilosec Cap] 20 mg PO ACBK #30 cap 08/26/14 Citalopram Hydrobromide [Celexa] 20 mg PO DAILY 12/24/15 Simvastatin 10 mg PO BEDTIME 06/20/16 Albuterol Sulfate [Ventolin Hfa] 1 inh INH PRN PRN 02/17/18 Budesonide-Formoterol Fumarate [Symbicort 160-4.5 Mcg/Act] 2 inh INH BID 02/17/18 Carvedilol 3.125 mg PO BID 02/17/18 Umeclidinium Ellis [Incruse Ellipta] 62.5 mg INH DAILY 02/17/18 Albuterol Sulfate Nebs [Proventil Nebs] 2.5 mg INH PRN PRN 09/30/18 Losartan Potassium 50 mg PO DAILY 09/30/18 Montelukast [Singulair] 10 mg PO BEDTIME 09/30/18 Nicotine Patch 21 mg [Habitrol Patch 21mg] 21 mg TD PRN PRN MDD craving 09/30/18 Review of Systems - Review of Systems Constitutional: States: no symptoms reported EENTM: States: no symptoms reported Respiratory: States: cough, short of breath, other - RODRIGUEZ Cardiology: States: chest pain, other - minimal Genitourinary: States: no symptoms reported Musculoskeletal: States: no symptoms reported Skin: States: no symptoms reported Neurological: States: no symptoms reported Hematologic/Lymphatic: States: no symptoms reported All other Systems: Reviewed and Negative Past Medical History (General) - Patient Medical History Hx Seizures: No Hx Stroke: No Hx Dementia: No Hx Asthma: No Hx of COPD: Yes Hx Cardiac Disorders: Yes Hx Congestive Heart Failure: Yes Hx Pacemaker: No Hx Hypertension: Yes Hx Thyroid Disease: No Hx Diabetes: No Hx Gastroesophageal Reflux: No Hx Renal Disease: No Hx Cancer: No Hx of HIV: No Hx Hepatitis C: No Hx MRSA: No - Vaccination History Hx Tetanus, Diphtheria Vaccination: No Hx Influenza Vaccination: Yes Hx Pneumococcal Vaccination: Yes - Social History Hx Tobacco Use: Yes Hx Chewing Tobacco Use: No Hx Alcohol Use: No Hx Substance Use: No Hx Substance Use Treatment: No Hx Depression: No Hx Physical Abuse: No Hx Emotional Abuse: No Hx Suspected Abuse: No - Female History Patient : No Family Medical History - Family History Father Family History: Unknown Living Status: Cause of : lung cancer Hx Family Hypertension: Yes Hx Cardiac Disease: Yes Age of Onset (years of age): MD Hx Family Cancer: Yes - lung-dad; Hx Family;Other: SEIZURES Mother Family History: Unknown Living Status: Hx Family Hypertension: Yes Hx Cardiac Disease: Yes Hx Family Cancer: Yes - skin Physical Exam - Physical Exam General Appearance: Anxious, Obvious distress, Obese, Unkempt Eyes, Ears, Nose, Throat Exam: PERRL/EOMI, normal ENT inspection Neck: non-tender, full range of motion, supple, normal inspection Respiratory: respiratory distress, decreased breath sounds, accessory muscle use , other - poor air movement Cardiovascular/Chest: regular rate, rhythm, no edema, no murmur Gastrointestinal/Abdominal: soft, other - pendulous, obese Extremity: normal range of motion, non-tender, normal inspection, no pedal edema Neurologic: mask former II-XII nml as tested, no motor/sensory deficits, alert, normal mood/affect, oriented x 3 Skin Exam: normal color, warm/dry Progress - EKG/XRAY/CT EKG: Sinus Comments: L axis deviation, Rate 88, inferior infarct age undetermined Departure - Departure Clinical Impression: Hypoxemia requiring supplemental oxygen, COPD exacerbation Time of Disposition: 16:42 Disposition: Admit Patient Condition: Fair Departure Forms: ED Discharge - Pt. Copy, Patient Portal Self Enrollment Referrals: CAMILLE JAMES IV [employer] TECHNICAL DIRECTOR [Primary Care Provider] - 1-2 Weeks Home Medications: Ambulatory Orders Aspirin [Baby Aspirin] 81 mg PO DAILY 04/21/14 Terazosin HCl 2 mg PO BEDTIME 04/21/14 Omeprazole [Prilosec Cap] 20 mg PO ACBK #30 cap 08/26/14 Citalopram Hydrobromide [Celexa] 20 mg PO DAILY 12/24/15 Simvastatin 10 mg PO BEDTIME 06/20/16 Albuterol Sulfate [Ventolin Hfa] 1 inh INH PRN PRN 02/17/18 Budesonide-Formoterol Fumarate [Symbicort 160-4.5 Mcg/Act] 2 inh INH BID 02/17/18 Carvedilol 3.125 mg PO BID 02/17/18 Umeclidinium Ellis [Incruse Ellipta] 62.5 mg INH DAILY 02/17/18 Albuterol Sulfate Nebs [Proventil Nebs] 2.5 mg INH PRN PRN 09/30/18 Losartan Potassium 50 mg PO DAILY 09/30/18 Montelukast [Singulair] 10 mg PO BEDTIME 09/30/18 Nicotine Patch 21 mg [Habitrol Patch 21mg] 21 mg TD PRN PRN MDD craving 09/30/18 Decision To Admit - Decistion To Admit Decision to Admit Date: 12/16/19 Decision to Admit Time: 16:39
[2019-12-16] MEDS ORDERED: SODIUM CHLORIDE 0.9% (FLUSH) 10 ML SYG IV PRN ×2 (11:31→17:20)
[2019-12-16] MEDS ORDERED: cefTRIAXone SODIUM 2 GM in SODIUM CHL 0.9% 100ML MINI-BAG 100 ML IVPB ONE (11:31)
--- NOTE | 2019-12-16 12:05 | RAD ---
EXAM DESCRIPTION: Chest,1 View CLINICAL HISTORY: 69 years Male, SOB COMPARISON: April 24, 2019 TECHNIQUE: AP portable chest. FINDINGS: Adequate expansion with clear mid and upper lung manuel and slightly crowded or coarsened markings both lung bases. Element of bronchitis should be considered. No lobar segmental consolidation noted. No pleural effusion seen. Heart size and vascularity appear normal for AP technique and degree of inspiration. No gross bony, hilar, or mediastinal abnormalities are noted. IMPRESSION: Slightly prominent and coarsened markings both lung bases suggesting bronchitis or upper respiratory illness without lobar or segmental consolidation. Electronically signed by: Venkat Day MD 12/16/2019 12:03 PM CDT
[2019-12-16] MEDS ORDERED: methylPREDNISolone SODIUM SUC 125 MG/2 ML VIAL ONE (14:49)
[2019-12-16] MEDS: ALBUTEROL SULFATE 2.5 MG/3 ML VIAL NEB PRN (15:10)
--- NOTE | 2019-12-16 16:27 | CT ---
EXAM DESCRIPTION: CTA Chest CLINICAL HISTORY: 69 years Male, r/o PE TECHNIQUE: Volumetric CT angiographic data acquisition of the thorax was obtained. Standard axial and CT angiographic MIP sagittal and coronal images are submitted. This exam was performed according to our departmental dose-optimization program, which includes automated exposure control, adjustment of the mA and/or kV according to patient size and/or use of iterative reconstruction technique. COMPARISON: Concurrent chest radiograph FINDINGS: The thyroid gland is unremarkable. No axillary adenopathy. Normal caliber thoracic aorta. There are artery and aortic valvular calcifications. Trace pericardial fluid. No evidence of acute process in the visualized upper abdomen. No mediastinal adenopathy. No pulmonary embolus. Sequela of prior granulomatous disease. Centrilobular emphysema. No pneumothorax. No pleural effusion. No focal consolidation. Scattered benign calcified granulomas. Right middle lobe solid noncalcified sub-6 mm pulmonary nodule series 5 image 147. No acute or suspicious osseous abnormality. Scattered degenerative changes present. IMPRESSION: 1. No evidence of acute process in the chest. Specifically no pulmonary embolus. 2. Solid noncalcified sub-6 mm right middle lobe pulmonary nodule. Recommend repeat chest CT in one year. Electronically signed by: Aiden Stephenson MD 12/16/2019 4:26 PM CDT
--- NOTE | 2019-12-16 16:53 | HP ---
SUPERVISING PHYSICIAN: Silvino Bullard M.D. CHIEF COMPLAINT: Worsening shortness of breath. HISTORY OF PRESENT ILLNESS: Mr. Vicente is a 69 year-old male patient who has a past medical history of chronic obstructive pulmonary disease, hypertension, CHF and is a current smoker in the form of cigars. He endorses he has been having problems with his COPD now for over 3 weeks. He was started on steroids an antibiotics by his PCP Derek Kurtz NP, in the middle of November. He has failed to have significant improvement. He was seen by another ASSISTANT PROFESSOR [employer] via home visit today and advised to go to the ED due to significant worsening of symptoms with mild respiratory distress. He presented to the ED today with 2 days of acute worsening shortness of breath, notably worse with exertion. In the Emergency Room, he was noted to have saturations on room air with ambulation down to 87%. Initially his vital signs in the Emergency Room showed that he was tachycardic to 100. He was actually hypertensive at 156/122, respirations were labored at 38 and at rest showing saturations in the low 90s. He was given multiple breathing treatments which did improve his breathing efforts. He was maintaining O2 saturations of 96% on room air. Blood pressure improved but again he was requiring oxygen to maintain O2 saturations with any effort at ambulation and is not normally on chronic O2 at home. Chest x-ray showed worsening bronchitis but no obvious consolidations. His lab work did show a mild leukocytosis of 11,700 with an early left shift. BNP was normal at 68, troponin was 0.01. He was denying any chest pains. Respiratory panel was completed and was negative for COVID as well as all other viral and bacterial targets. Attempts were made in the Emergency Room to provide breathing treatments in efforts to to discharge home for outpatient management, however he was still showing signs of mild respiratory distress - tachypneic and requiring oxygen with any exertional effort, therefore he is going to be admitted for exacerbation of chronic obstructive pulmonary disease having failed outpatient treatment now with concerns for early developing community acquired pneumonia. He was admitted in stable condition. PAST MEDICAL HISTORY: 1. Chronic obstructive pulmonary disease. 2. Hypertension. 3. Benign prostatic hypertrophy. 4. Congestive heart failure, diastolic with no echocardiogram available at admission. 5. Chronic tobacco abuse in the form of cigars having quit smoking cigarettes in 2018. 6. Depression and anxiety. PAST SURGICAL HISTORY: 1. Left ankle fracture with open reduction and internal fixation in 1979. 2. Appendectomy. 3. Tonsillectomy. 4. Cholecystectomy. HOME MEDICATIONS: Awaiting updated list in the electronic medical records. ALLERGIES: NO KNOWN DRUG ALLERGIES. FAMILY HISTORY: Positive for chronic obstructive pulmonary disease, lung cancer and cardiovascular disease. SOCIAL HISTORY: The patient is disabled. He lives in [place]. He is . He has a significant history of smoking over 50 years from 1 to 3 packs a day but quit in 2018, but continues to use tobacco in the form of cigars. He denies any illicit drug or alcohol usage. REVIEW OF SYSTEMS: CONSTITUTIONAL: Positive for general fatigue. Negative for any fevers or chills or rigors. HEENT: Negative for sore throats, earaches, nasal congestion, vision changes or headaches. RESPIRATORY: Positive for worsening shortness of breath with ongoing wheezing, coughing and nonproductive cough as noted in History of Present Illness. CARDIOVASCULAR: Denies any chest pains, palpitations or syncopal episodes. GASTROINTESTINAL: Negative for nausea, vomiting, diarrhea or constipation. GENITOURINARY: Denies any dysuria, hematuria, polyuria. NEUROLOGIC: Negative for arthralgias or myalgias. SKIN: Negative for lesions, rashes, moles or unexplained changes. NEUROLOGIC: Negative for seizures, ataxia or focal deficit. HEMATOLOGIC: Denies any unexplained bleeding, bruising or transfusion reactions. PHYSICAL EXAMINATION: VITAL SIGNS: On admission to the Medical/Surgical floor showed that he was afebrile with temperature 96.6, pulse 74, blood pressure 149/96, still showing some respirations up to 18 to 28, especially with ambulatory effort. In the Emergency Room, he was noted to be using some accessory muscles in mild respiratory distress with respirations up to 38 before breathing treatments showing saturations of mid 80s on ambulation requiring O2 at 2 liters to maintain 96%. GENERAL: The patient is obese and unkempt. He is in some mild distress due to his mild respiratory distress but is significantly improving since treatment with breathing treatments and oxygen. HEENT: Tympanic membranes clear bilaterally. Oropharynx is pink, moist without any lesions. NECK: Supple, nontender with full range of motion. No jugular venous distention noted. CHEST: Lung sounds are significantly decreased throughout with notable decreased air movement. There is faint inspiratory and expiratory wheezing. He is using some accessory muscles with some mild pursed lip breathing. There were no obvious rhonchi or rales. CARDIOVASCULAR: Regular rate and rhythm without any appreciable murmurs, gallops, or rubs. ABDOMEN: Soft, nontender. Positive bowel sounds. He does have a large panniculus and is morbidly obese. EXTREMITIES: Without any edema, clubbing or cyanosis. NEUROLOGIC: Cranial nerves II-XII are grossly intact. He is alert and oriented times three. Facial features are symmetrical. No nystagmus was noted. SKIN: Warm, pink and dry. LABORATORY: White count was 11,700, hemoglobin 16, hematocrit 46.6, platelet count 320,000. Differential does show early left shift. Coagulation studies show just a slightly elevated D-dimer at 599. Chemistries showed normal electrolytes with creatinine of 0.92, glucose 103, calcium 8.6, ferritin 107, LDH was 182, C reactive protein was normal at 0.8. Liver functions were all within normal limits. Urinalysis was within normal limits. MICROBIOLOGY: Respiratory panel was negative for all viral and bacterial targets tested. Blood cultures are pending. Urine culture was pending. RADIOLOGY: Chest x-ray per radiology interpretation showed slightly prominent and coarse markings on both lung bases suggesting bronchitis or upper respiratory illness without any obvious lobular or segmental consolidations. He had a CT of the chest given his shortness of breath, tachycardia and elevated D- dimer which showed no evidence of acute process in the chest, specifically no pulmonary embolus. Please see those reports for details. EKG showed sinus rhythm at [address] or T wave changes to indicate acute ischemia. ASSESSMENT: 1. Acute exacerbation of chronic obstructive pulmonary disease failing outpatient management now with concerns for developing community acquired pneumonia with the patient showing to be hypoxic on room air with ambulation not normally requiring oxygen. 2. Elevated D-Dimer with negative PE study by CTA of chest, etiology probably due to worsening bronchitis 3. Hypertension poorly controlled. 4. Benign prostatic hypertrophy. 5. Congestive heart failure with a normal BNP on admission and no signs of exacerbation. 6. History of extensive tobacco abuse currently using cigars. 8. Depression and anxiety. 9. Morbid obesity with a body mass index of 40.7. PLAN: Mr. Vicente is of advanced age, morbidly obese in advanced stages of COPD and currently in acute exacerbation . He has failed to respond to outpatient treatment and is high risk for a poor outcome so he will be admitted for a more aggressive treatment course to help stabilize and prevent further respiratory and ventilatory decline.He was given breathing treatments in the ER and was unable to tolerate any room air ambulation and normally does not wear O2. Given that he was significantly decreased and having some mild respiratory distress, he was started on Solu-Medrol 125. Will go ahead and keep him on Solu-Medrol 60 mg every 6 hours for 3 doses with intentions of titrating down to p.o. prednisone. He will be on antibiotic coverage with Rocephin and azithromycin. Will have him on aggressive bronchial hygiene. He will be on a proton pump inhibitor for gastric protection in the form of Protonix. Will have him on Lovenox for deep venous thrombosis prophylaxis per protocol. He will have oxygen as needed and to titrate down to room air as he improves. I would anticipate his length of stay to be at least 2 to 3 days. Hopefully with aggressive pulmonary treatment and antibiotics and steroids, he can safely transition to outpatient management once his clinically picture improves.. Until we can transition to outpatient management will continue to monitor and treat as needed. #[id number] [facility]
[2019-12-16] MEDS ORDERED: TEMAZEPAM 15 MG CAP PO PRN (17:20)
[2019-12-16] MEDS ORDERED: ONDANSETRON INJ 4 MG/2 ML VIAL IV PRN (17:20)
[2019-12-16] MEDS ORDERED: ACETAMINOPHEN 325 MG TAB PO PRN (17:20)
[2019-12-16] MEDS ORDERED: IV SET AND CAP CHANGE INJ INJ SCH (17:30)
[2019-12-16] MEDS: cefTRIAXone SODIUM 1 GM in SODIUM CHL 0.9% 50ML MIN-BAG+ 50 ML IVPB SCH (17:39)
[2019-12-16] MEDS ORDERED: AZITHROMYCIN IV 500 MG VIAL IVPB ONE (17:50)
[2019-12-16] MEDS ORDERED: SODIUM CHLORIDE 0.9% 250ML 250 ML ONE (17:50)
[2019-12-16] MEDS: AZITHROMYCIN IV 500 MG in SODIUM CHLORIDE 0.9% 250ML 250 ML IVPB SCH (17:58)
[2019-12-16] MEDS ORDERED: methylPREDNISolone SODIUM SUC 125 MG/2 ML VIAL IV SCH ×2 (18:00→23:55)
[2019-12-16] MEDS: IPRATROPIUM/ALBUTEROL 3 ML VIAL INH SCH (20:27)
[2019-12-16] MEDS: ENOXAPARIN SODIUM 40 MG/0.4 ML SYG SUBCU SCH (20:32)
[2019-12-16] MEDS ORDERED: TERAZOSIN HCL 2 MG PO SCH (21:00)
[2019-12-16] MEDS ORDERED: TERAZOSIN 1 MG CAP PO ONE (21:14)
[2019-12-16] MEDS ORDERED: methylPREDNISolone SODIUM SUC 40 MG/ML VIAL ONE (21:14)
[2019-12-16] MEDS: SIMVASTATIN 10 MG TAB PO SCH (21:17)
[2019-12-16] MEDS: MONTELUKAST 10 MG TAB PO SCH (21:17)
[2019-12-16] MEDS: CARVEDILOL 3.125 MG TAB PO SCH (21:18)
[2019-12-17] MEDS: ALBUTEROL SULFATE 2.5 MG/3 ML VIAL NEB PRN (04:29)
[2019-12-17] MEDS: methylPREDNISolone SODIUM SUC 125 MG/2 ML VIAL IV SCH ×4 (05:41→23:32)
[2019-12-17] MEDS: PANTOPRAZOLE SODIUM IV 40 MG VIAL IV SCH (06:10)
--- NOTE | 2019-12-17 06:21 | RAD ---
EXAM DESCRIPTION: Chest,2 Views CLINICAL HISTORY: 69 years Male, Pneumonia COMPARISON: 12/16/2019 TECHNIQUE: PA and lateral chest radiographs. FINDINGS: Suboptimal study secondary to exclusion of the right costophrenic angle and a portion of the left hemithorax from the [id number]. Hyperlucent lungs consistent with COPD. No discrete pulmonary opacity identified. No pneumothorax or pleural effusion. Normal cardiomediastinal contour. Normal osseous structures. IMPRESSION: 1. No discernible active cardiopulmonary process, accounting for suboptimal evaluation of the lungs. 2. COPD. Electronically signed by: Matt Villanueva MD 12/17/2019 6:19 AM CDT
[2019-12-17] MEDS: IPRATROPIUM/ALBUTEROL 3 ML VIAL INH SCH ×3 (08:30→16:44)
[2019-12-17] MEDS: NON-FORMULARY MEDICATION 1 EA MIS (Budesonide-Formoterol Fumarate [Symbicort 160-4.5 Mcg/A INH SCH ×2 (09:00→20:59)
[2019-12-17] MEDS ORDERED: UMECLIDINIUM BROMIDE INH SCH (09:00)
[2019-12-17] MEDS ORDERED: UMECLIDINIUM BROMIDE 62.5 MG INH SCH (09:00)
[2019-12-17] MEDS: LOSARTAN POTASSIUM 25 MG TAB PO SCH (09:33)
[2019-12-17] MEDS: CITALOPRAM HBR 20 MG TAB PO SCH (09:33)
[2019-12-17] MEDS: ASPIRIN (CHEWABLE) 81 MG TAB PO SCH (09:33)
[2019-12-17] MEDS: CARVEDILOL 3.125 MG TAB PO SCH ×2 (09:33→20:41)
[2019-12-17] MEDS: NICOTINE PATCH 21 MG TD SCH (10:05)
--- NOTE | 2019-12-17 11:13 | PN ---
SUPERVISING PHYSICIAN: Brent Bullard MD DATE: 12/17/19 SUBJECTIVE: The patient is feeling a little bit better this morning. His breathing efforts are much less labored. He has had no fevers overnight, no nausea, vomiting, no chest pain. OBJECTIVE: VITAL SIGNS: Temperature 97.4, pulse 62, blood pressure 119/81, respirations 22 to 24, oxygen saturation 93% on room at rest. GENERAL: The patient is resting comfortably. He does not appear to be in any distress. He is speaking in full sentences. He is alert. CHEST: Lungs are better in regards to aeration today, but still diminished towards the bases. I do not hear any obvious rales, wheezes or rhonchi. HEART: Regular rate and rhythm. ABDOMEN: Obese, but soft and nontender. Positive bowel sounds. EXTREMITIES: No edema. NEUROLOGIC: Alert and oriented times three. LABORATORY: White count now normalized to 9,700. He still does have a left shift. Hemoglobin 15.5, hematocrit 45.3. Chemistries show normal electrolytes with calcium 8.6, BUN 13, creatinine 0.97. RADIOLOGY: Chest x-ray per radiologic interpretation showed no discernible active cardiopulmonary process, accounting for suboptimal evaluation of lungs with exclusion of right costophrenic and a portion of the left hemithorax from field of view. Otherwise, findings are consistent with COPD. Please see that report for details. ASSESSMENT: 1. Acute exacerbation of chronic obstructive pulmonary disease failing outpatient management with concerns for developing community acquired pneumonia with the patient showing good response with initiation of treatment. 2. Elevated D-Dimer with negative PE study by CTA of chest, etiology probably due to worsening bronchitis. 3. Hypertension poorly controlled. 4. Benign prostatic hypertrophy. 5. Congestive heart failure with a normal BNP on admission and no signs of exacerbation. 6. History of extensive tobacco abuse currently using cigars. 8. Depression and anxiety. 9. Morbid obesity with a body mass index of 40.7. PLAN: We will continue with current plan of care at this point with Lovenox, azithromycin, Rocephin and Solu-Medrol and breathing treatments. We will resume his home medications. He is on a proton pump inhibitor for gastric protection while in the hospital and steroids. If he continues to improve, I anticipate he can hopefully be discharged tomorrow, but we will reassess in the morning. We will work to titrate his steroids down, which may be his one factor delaying his discharge, but we will work to titrate this down to p.o. as soon as possible. Until the patient can transition to outpatient management, we will continue to monitor and treat as needed. #[id number] [facility]
[2019-12-17] MEDS: cefTRIAXone SODIUM 1 GM in SODIUM CHL 0.9% 50ML MIN-BAG+ 50 ML IVPB SCH (16:58)
[2019-12-17] MEDS: AZITHROMYCIN IV 500 MG in SODIUM CHLORIDE 0.9% 250ML 250 ML IVPB SCH (18:21)
[2019-12-17] MEDS ORDERED: TERAZOSIN 1 MG CAP PO ONE (18:53)
[2019-12-17] MEDS: ALPRAZolam 0.5 MG TAB PO PRN (19:14)
[2019-12-17] MEDS: LEVALBUTEROL NEBS 1.25 MG/3 ML VIAL NEB SCH ×2 (19:20)
[2019-12-17] MEDS: ENOXAPARIN SODIUM 40 MG/0.4 ML SYG SUBCU SCH (20:41)
[2019-12-17] MEDS: SIMVASTATIN 10 MG TAB PO SCH (20:41)
[2019-12-17] MEDS: MONTELUKAST 10 MG TAB PO SCH (20:41)
[2019-12-17] MEDS: TERAZOSIN 1 MG CAP PO SCH (20:41)
[2019-12-18] MEDS: LEVALBUTEROL NEBS 1.25 MG/3 ML VIAL NEB PRN (04:43)
[2019-12-18] MEDS: PANTOPRAZOLE SODIUM IV 40 MG VIAL IV SCH (05:59)
[2019-12-18] MEDS: methylPREDNISolone SODIUM SUC 125 MG/2 ML VIAL IV SCH ×2 (05:59→12:43)
[2019-12-18] MEDS: UMECLIDINIUM BROMIDE INH SCH (08:45)
[2019-12-18] MEDS: LEVALBUTEROL NEBS 1.25 MG/3 ML VIAL NEB SCH ×4 (08:45→21:30)
[2019-12-18] MEDS: NON-FORMULARY MEDICATION 1 EA MIS (Budesonide-Formoterol Fumarate [Symbicort 160-4.5 Mcg/A INH SCH ×2 (08:45→21:30)
[2019-12-18] MEDS: LOSARTAN POTASSIUM 25 MG TAB PO SCH (08:53)
[2019-12-18] MEDS: CITALOPRAM HBR 20 MG TAB PO SCH (08:53)
[2019-12-18] MEDS: CARVEDILOL 3.125 MG TAB PO SCH ×2 (08:53→20:28)
[2019-12-18] MEDS: ASPIRIN (CHEWABLE) 81 MG TAB PO SCH (08:53)
[2019-12-18] MEDS: NICOTINE PATCH 21 MG TD SCH (08:53)
[2019-12-18] MEDS: cefTRIAXone SODIUM 1 GM in SODIUM CHL 0.9% 50ML MIN-BAG+ 50 ML IVPB SCH (16:31)
[2019-12-18] MEDS: AZITHROMYCIN IV 500 MG in SODIUM CHLORIDE 0.9% 250ML 250 ML IVPB SCH (17:30)
[2019-12-18] MEDS ORDERED: methylPREDNISolone SODIUM SUC 40 MG/ML VIAL ONE (18:38)
[2019-12-18] MEDS: TERAZOSIN 1 MG CAP PO SCH (20:28)
[2019-12-18] MEDS: ALPRAZolam 0.5 MG TAB PO PRN (20:29)
[2019-12-18] MEDS: MONTELUKAST 10 MG TAB PO SCH (20:29)
[2019-12-18] MEDS: SIMVASTATIN 10 MG TAB PO SCH (20:29)
[2019-12-18] MEDS: ENOXAPARIN SODIUM 40 MG/0.4 ML SYG SUBCU SCH (20:29)
[2019-12-18] MEDS: methylPREDNISolone SODIUM SUC 40 MG/ML VIAL IV SCH (21:32)
[2019-12-19] MEDS: LEVALBUTEROL NEBS 1.25 MG/3 ML VIAL NEB PRN (04:05)
[2019-12-19] MEDS: methylPREDNISolone SODIUM SUC 40 MG/ML VIAL IV SCH (05:46)
[2019-12-19] MEDS: PANTOPRAZOLE SODIUM IV 40 MG VIAL IV SCH (05:47)
[2019-12-19] MEDS: CITALOPRAM HBR 20 MG TAB PO SCH (08:00)
[2019-12-19] MEDS: CARVEDILOL 3.125 MG TAB PO SCH (08:00)
[2019-12-19] MEDS: NICOTINE PATCH 21 MG TD SCH (08:00)
[2019-12-19] MEDS: ASPIRIN (CHEWABLE) 81 MG TAB PO SCH (08:00)
[2019-12-19] MEDS: LOSARTAN POTASSIUM 25 MG TAB PO SCH (08:00)
[2019-12-19] MEDS ORDERED: LEVALBUTEROL NEBS 1.25 MG/3 ML VIAL NEB ONE (08:29)
[2019-12-19] MEDS ORDERED: predniSONE 20 MG TAB PO SCH (09:00)
[2019-12-19] MEDS: NON-FORMULARY MEDICATION 1 EA MIS (Budesonide-Formoterol Fumarate [Symbicort 160-4.5 Mcg/A INH SCH (09:06)
[2019-12-19] MEDS: UMECLIDINIUM BROMIDE INH SCH (09:07)
[2019-12-19] MEDS: LEVALBUTEROL NEBS 1.25 MG/3 ML VIAL NEB SCH (09:07)
[2019-12-19 09:10] VITALS: O2SAT 98
[2019-12-19 10:00] VITALS: BP 145/87; TEMP 97.4
--- NOTE | 2019-12-19 13:25 | PN ---
SUPERVISING PHYSICIAN: Silvino Bullard M.D. DATE: 12/18/19 SUBJECTIVE: The patient is sitting up in bed. He still has occasional shortness of breath but it has improved. Denies chest pain, nausea or vomiting. OBJECTIVE: VITAL SIGNS: Temperature 97.2, heart rate 95, blood pressure 164/95, respiratory rate 24, O2 saturation 95% on room air. RESPIRATORY: Somewhat diminished at the bases. He is tachypneic, especially with speech. CARDIAC: Regular rate and rhythm. NEUROLOGIC: Awake, alert and oriented times three. LABORATORY: Blood cultures show no growth after 24 hours. All other labs and films have been reviewed via the EMR. ASSESSMENT: 1. Acute exacerbation of chronic obstructive pulmonary disease failing outpatient management with concerns for developing community acquired pneumonia with the patient showing good response with initiation of treatment. 2. Elevated D-Dimer with negative PE study by CTA of chest, etiology probably due to worsening bronchitis. 3. Hypertension poorly controlled. 4. Benign prostatic hypertrophy. 5. Congestive heart failure with a normal BNP on admission and no signs of exacerbation. 6. History of extensive tobacco abuse currently using cigars. 8. Depression and anxiety. 9. Morbid obesity with a body mass index of 40.7. PLAN: We will continue present supportive care. I have titrated his IV Solu- Medrol and will taper that off and start him on oral prednisone. Will continue to monitor his cultures and repeat his lab for in the morning. Hopefully he can be discharged tomorrow on antibiotics and oral steroids with close followup with Derek Kurtz, his primary care provider. Will continue to monitor closely and follow as needed. #[id number] [facility]
--- NOTE | 2019-12-19 17:35 | DS ---
SUPERVISING PHYSICIAN: Silvino Bullard M.D. DISCHARGE DIAGNOSIS: 1. Acute exacerbation of chronic obstructive pulmonary disease failing outpatient management with concerns for developing community acquired pneumonia with the patient showing good response with initiation of treatment. 2. Elevated D-Dimer with negative PE study by CTA of chest, etiology probably due to worsening bronchitis. 3. Hypertension poorly controlled. 4. Benign prostatic hypertrophy. 5. Congestive heart failure with a normal BNP on admission and no signs of exacerbation. 6. History of extensive tobacco abuse currently using cigars. 8. Depression and anxiety. 9. Morbid obesity with a body mass index of 40.7. HISTORY OF PRESENT ILLNESS: This is a 69 year-old male patient who has a significant history of chronic obstructive pulmonary disease, hypertension, CHF and is a current smoker in the form of cigars. His COPD had been flaring up for approximately 3 weeks prior to coming to the Emergency Room. His PCP, Derek Kurtz NP, had started him on antibiotics and steroids about 2 weeks ago. There was no improvement. On the day of his Emergency Room visit he was seen by another HUMAN SERVICE SPECIALIST and instructed to go to the ED due to 2 days of worsening shortness of breath, most notably with exertion. In the Emergency Room, he had O2 saturations that had gone down to 87%. His vital signs showed him to be tachycardic up to 100 with a blood pressure of 156/122, respirations were labored at 38. He was given multiple breathing treatments which did little to improve his breathing efforts. On oxygen, he did have saturations of 96%. He has shown worsening bronchitis with no obvious consolidations on chest x-ray. He did have mild leukocytosis of 11,700 with a left shift on differential. BNP was normal at 68, troponin was 0.01. He was denying any chest pains. He was negative for COVID. He continued to show signs of mild respiratory distress with tachypnea and oxygen requirements. He was admitted to the hospital for exacerbation of COPD having failed outpatient treatment and concerns for early developing community acquired pneumonia. He was admitted in stable condition. HOSPITAL COURSE: He was admitted on the pneumonia guidelines and given aggressive pulmonary hygiene with azithromycin and Rocephin. He was also started on IV Solu-Medrol. His Solu-Medrol was titrated down and he started oral prednisone this morning. He had Protonix for ulcer prophylaxis as well as Lovenox for DVT prophylaxis. He did require BiPAP at night but his oxygen has been titrated off. He is less short of breath. He did have trouble sleeping most likely due to steroids and he was given some Xanax which helped with his sleeping. He will be discharged home today in stable condition. LABORATORY: WBCs were 11,700 on admission and went down to 9,700 and today are 13,900 most likely from steroid administration. His H&H was stable at 14.5 and 43.3. He continued to have a left shift on his differential. His D-dimer was elevated at 599. His electrolytes were basically within normal limits with sodium 139, potassium 3.9, chloride 107, carbon dioxide 23, BUN19, creatinine 0.91, calcium 8.6, magnesium 2.2. Urinalysis was unremarkable. Preliminary blood cultures show no growth after 3 days. Urine culture showed no growth after 48 hours. Chest/thorax CTA shows: 1. No evidence of acute process in the chest, specifically no pulmonary embolus. 2. Solid noncalcified sub-6mm right middle lobe pulmonary nodule. Recommend chest CT in 1 year. DISCHARGE PLAN: The patient will be discharged home in stable condition.. He is to resume his previous diet and increase his activity as tolerated. He is to followup with Derek Kurtz, his primary care provider, within the next week. In addition to his routine medications, he is to have 7 additional days of Cefdinir as well as a prednisone taper. I have given him 10 tabs of Xanax to help with sleep. Laura Ojeda was consulted and there are no issues found. He is to return to the hospital or followup with Derek Kurtz for any problems or complications. DISCHARGE MEDICATIONS: 1. Terazosin. 2. Aspirin. 3. Prilosec. 4. Citalopram. 5. Simvastatin. 6. Symbicort. 7. Albuterol. 8. Carvedilol. 9. Incruse ellipta. 10. Singulair. 11. Losartan. 12. Proventil. 13. Nicotine patch. 14. Cefdinir. 15. Prednisone. 16. Alprazolam. #[id number] [facility]
--- NOTE | 2019-12-22 16:06 | RAD ---
EXAM DESCRIPTION: Chest,2 Views CLINICAL HISTORY: 69 years Male, Pneumonia COMPARISON: 12/16/2019 TECHNIQUE: PA and lateral chest radiographs. FINDINGS: Suboptimal study secondary to exclusion of the right costophrenic angle and a portion of the left hemithorax from the [id number]. Hyperlucent lungs consistent with COPD. No discrete pulmonary opacity identified. No pneumothorax or pleural effusion. Normal cardiomediastinal contour. Normal osseous structures. IMPRESSION: 1. No discernible active cardiopulmonary process, accounting for suboptimal evaluation of the lungs. 2. COPD. Electronically signed by: Matt Villanueva MD 12/17/2019 6:19 AM CDT
--- NOTE | 2019-12-22 17:21 | RAD ---
EXAM DESCRIPTION: Chest,2 Views CLINICAL HISTORY: 69 years Male, Pneumonia COMPARISON: 12/16/2019 TECHNIQUE: PA and lateral chest radiographs. FINDINGS: Suboptimal study secondary to exclusion of the right costophrenic angle and a portion of the left hemithorax from the [id number]. Hyperlucent lungs consistent with COPD. No discrete pulmonary opacity identified. No pneumothorax or pleural effusion. Normal cardiomediastinal contour. Normal osseous structures. IMPRESSION: 1. No discernible active cardiopulmonary process, accounting for suboptimal evaluation of the lungs. 2. COPD. Electronically signed by: Matt Villanueva MD 12/17/2019 6:19 AM CDT
== END 2019-12-19 11:45 | disposition home or self-care (01) | DRG 190 ==
LOC: ER 11:17 → MS 16:52 → OBSVTOIN 16:52
PROVIDERS: ADMIT Nurse Practitioner Family; ATTEND Nurse Practitioner Acute Care
PROC: B32S1ZZ Computerized Tomography (CT Scan) of Right Pulmonary Artery using Low Osmolar Contrast (ICD-10-PCS; principal; 2019-12-16)
PROC: B32T1ZZ Computerized Tomography (CT Scan) of Left Pulmonary Artery using Low Osmolar Contrast (ICD-10-PCS; 2019-12-16)
DX: J44.1 Chronic obstructive pulmonary disease with (acute) exacerbation (principal); J18.9 Pneumonia, unspecified organism; Z68.41 Body mass index [BMI] 40.0-44.9, adult; I50.32 Chronic diastolic (congestive) heart failure; J44.0 Chronic obstructive pulmonary disease with (acute) lower respiratory infection; R79.89 Other specified abnormal findings of blood chemistry; I11.0 Hypertensive heart disease with heart failure; N40.0 Benign prostatic hyperplasia without lower urinary tract symptoms; F17.210 Nicotine dependence, cigarettes, uncomplicated; F32.9 Major depressive disorder, single episode, unspecified; F41.9 Anxiety disorder, unspecified; E66.01 Morbid (severe) obesity due to excess calories; R09.02 Hypoxemia; Z79.82 Long term (current) use of aspirin; Z79.899 Other long term (current) drug therapy

== ENCOUNTER 2020-04-18 15:00 | Emergency (ER) | payer OTHER ==
[2020-04-18] MEDS ORDERED: ONDANSETRON INJ 4 MG/2 ML VIAL IV ONE (15:17)
--- NOTE | 2020-04-18 15:44 | RAD ---
Study: Single Frontal Radiograph of the Chest. Indication:sob Comparison: December 17, 2019 Impression: Heart size normal. Mild hazy increased density lung bases which could reflect developing pneumonia or atelectasis. Short-term follow up recommended. No pleural effusion or pneumothorax. Electronically signed by: Bismark Ray MD 04/18/2020 3:[address] [facility]
--- NOTE | 2020-04-18 15:55 | RAD ---
EXAM DESCRIPTION: Ankle,Left 3 Views CLINICAL HISTORY: FALL @1 DAY PRIOR FX @40 YRS COMPARISON: None. IMPRESSION: 3 views of the left ankle shows osteopenia the osseous structures without acute fracture, focal bone destruction, or joint dislocation. Calcification of the articular cartilage along the medial ankle mortise suggests chondrocalcinosis and raises suspicion for CPPD arthropathy versus pseudogout. Partial calcification of the interosseous ligament between the distal tibia and fibula is seen. Small plantar enthesophyte of the calcaneus. Mild osteoarthritic changes of the talonavicular joint are seen. Mild diffuse soft tissue swelling of the ankle is seen. Electronically signed by: Gopi Velasco MD 04/18/2020 3:53 PM [facility]
[2020-04-18] MEDS ORDERED: methylPREDNISolone SODIUM SUC 125 MG/2 ML VIAL IV ONE (16:30)
--- NOTE | 2020-04-18 16:31 | ED.PDOC ---
History of Present Illness - General Chief Complaint: General Stated Complaint: shortness of breath,sore throat,HAflu-like sx Time Seen by Provider: 04/18/20 15:04 Source: patient, RN notes reviewed, Vital Signs reviewed, old records Exam Limitations: no limitations - History of Present Illness Initial Comments: 70 yo pleasant male with CHF and COPD comes in with two weeks of body aches, sore throat, fatigue, shortness of breath. no covid exposure. does not wear oxygen at home. Gets pneumonia about once a year. denies chest pain. no n/v/d. Allergies/Adverse Reactions: Allergies NO KNOWN ALLERGY Allergy (Verified 12/16/19 13:03) Home Medications: Ambulatory Orders Aspirin [Baby Aspirin] 81 mg PO DAILY 04/21/14 Terazosin HCl 2 mg PO BEDTIME 04/21/14 Omeprazole [Prilosec Cap] 20 mg PO ACBK #30 cap 08/26/14 Citalopram Hydrobromide [Celexa] 20 mg PO DAILY 12/24/15 Simvastatin 10 mg PO BEDTIME 06/20/16 Albuterol Sulfate [Ventolin Hfa] 1 inh INH PRN PRN 02/17/18 Budesonide-Formoterol Fumarate [Symbicort 160-4.5 Mcg/Act] 2 inh INH BID 02/17/18 Carvedilol 3.125 mg PO BID 02/17/18 Umeclidinium [place] [Incruse Ellipta] 62.5 mg INH DAILY 02/17/18 Albuterol Sulfate Nebs [Proventil Nebs] 2.5 mg INH PRN PRN 09/30/18 Losartan Potassium 50 mg PO DAILY 09/30/18 Montelukast [Singulair] 10 mg PO BEDTIME 09/30/18 Nicotine Patch 21 mg [Habitrol Patch 21mg] 21 mg TD PRN PRN MDD craving 09/30/18 ALPRAZolam [Xanax] 0.5 mg PO Q6H PRN #10 tab 12/19/19 Cefdinir 300 mg PO BID #14 capsule 12/19/19 Prednisone See Taper PO DAILY #30 tab 12/19/19 Levofloxacin [Levaquin] 750 mg PO DAILY #5 tab 04/18/20 Prednisone 20 mg PO DAILY #10 tab 04/18/20 Review of Systems - Review of Systems Constitutional: States: malaise. Denies: chills, fever EENTM: States: throat pain, mouth pain. Denies: blurred vision, nose congestion Respiratory: States: cough, short of breath. Denies: orthopnea, stridor Cardiology: Denies: chest pain, palpitations Gastrointestinal/Abdominal: Denies: abdominal pain, diarrhea, nausea, vomiting Genitourinary: Denies: dysuria, frequency, hematuria Musculoskeletal: States: muscle pain. Denies: back pain Skin: Denies: rash Neurological: Denies: headache, numbness, weakness Hematologic/Lymphatic: Denies: easy bleeding, easy bruising Past Medical History (General) - Patient Medical History Hx Seizures: No Hx Stroke: No Hx Dementia: No Hx Asthma: No Hx of COPD: Yes Hx Cardiac Disorders: Yes Hx Congestive Heart Failure: Yes Hx Pacemaker: No Hx Hypertension: Yes Hx Thyroid Disease: No Hx Diabetes: No Hx Gastroesophageal Reflux: No Hx Renal Disease: No Hx Cancer: No Hx of HIV: No Hx Hepatitis C: No Hx MRSA: No Surgical History: cholecystectomy - Vaccination History Hx Tetanus, Diphtheria Vaccination: No Hx Influenza Vaccination: No Hx Pneumococcal Vaccination: Yes - Social History Hx Tobacco Use: Yes Hx Chewing Tobacco Use: No Hx Alcohol Use: No Hx Substance Use: No Hx Substance Use Treatment: No Hx Depression: No Hx Physical Abuse: No Hx Emotional Abuse: No Hx Suspected Abuse: No - Female History Patient : No Family Medical History - Family History Father Family History: Unknown Living Status: Cause of : lung cancer Hx Family Hypertension: Yes Hx Cardiac Disease: Yes Age of Onset (years of age): [place] Hx Family Cancer: Yes - lung-dad; Hx Family;Other: SEIZURES Mother Family History: Unknown Living Status: Hx Family Hypertension: Yes Hx Cardiac Disease: Yes Hx Family Cancer: Yes - skin Physical Exam - Physical Exam General Appearance: Alert, Comfortable, No apparent distress, Obese, Well Developed, Well Groomed, Well Hydrated, Well Nourished Eyes, Ears, Nose, Throat Exam: PERRL/EOMI, normal ENT inspection, TMs normal Neck: non-tender, full range of motion, supple, normal inspection Respiratory: chest non-tender, lungs clear, normal breath sounds, no respiratory distress, no accessory muscle use Cardiovascular/Chest: normal peripheral pulses, regular rate, rhythm, no gallop, no JVD Peripheral Pulses: radial,right: 2+, radial,left: 2+ Gastrointestinal/Abdominal: normal bowel sounds, non tender, soft, no organomegaly, no pulsatile mass Rectal Exam: deferred Extremity: normal range of motion, non-tender, normal inspection, no pedal edema, no calf tenderness, normal capillary refill Neurologic: maternal child nurse II-XII nml as tested, no motor/sensory deficits, alert, normal mood/affect, oriented x 3 Skin Exam: normal color, warm/dry Progress - Progress Progress: partial ddx: pneumonia, covid, flu, chf exacerbation, copd exacerbation. 04/18/20 19:08 patient states he twisted his ankle the other day, and it still hurts. Can walk without difficulty. ankle xray: views of the left ankle shows osteopenia the osseous structures without acute fracture, focal bone destruction, or joint dislocation. Calcification of the articular cartilage along the medial ankle mortise suggests chondrocalcinosis and raises suspicion for CPPD arthropathy versus pseudogout. Partial calcification of the interosseous ligament between the distal tibia and fibula is seen. Small plantar enthesophyte of the calcaneus. Mild osteoarthritic changes of the talonavicular joint are seen. Mild diffuse soft tissue swelling of the ankle is seen. 04/18/20 19:09 - Results/Orders Results/Orders: 04/18/20 15:30 EKG STAT Laboratory Results WBC 14.2 K/mm3 (4.8-10.8) H 04/18/20 15:25 RBC 5.82 M/mm3 (4.70-6.10) 04/18/20 15:25 Hgb 16.5 gm/dL (14.0-18.0) 04/18/20 15:25 Hct 48.4 % (42.0-52.0) 04/18/20 15:25 MCV 83.2 fl (80.0-94.0) 04/18/20 15:25 MCH 28.4 pg (27.0-31.0) 04/18/20 15:25 MCHC 34.2 g/dL (33.0-37.0) 04/18/20 15:25 RDW 13.5 % (11.5-14.5) 04/18/20 15:25 Plt Count 369 K/mm3 (130-400) 04/18/20 15:25 MPV 8.3 fl (7.40-10.4) 04/18/20 15:25 Absolute Neuts (auto) 10.40 K/uL (1.8-6.8) H 04/18/20 15:25 Absolute Lymphs (auto) 2.30 K/uL (1.0-3.4) 04/18/20 15:25 Absolute Monos (auto) 1.20 K/uL (0.2-0.8) H 04/18/20 15:25 Absolute Eos (auto) 0.20 K/uL (0.0-0.4) 04/18/20 15:25 Absolute Basos (auto) 0.20 K/uL (0.0-0.1) H 04/18/20 15:25 Neutrophils % 73.2 % (42.0-78.0) 04/18/20 15:25 Lymphocytes % 16.1 % (20.0-50.0) L 04/18/20 15:25 Monocytes % 8.3 % (2.0-9.0) 04/18/20 15:25 Eosinophils % 1.2 % (1.0-5.0) 04/18/20 15:25 Basophils % 1.2 % (0.0-2.0) 04/18/20 15:25 Sodium 138 mmol/L (135-145) 04/18/20 15:25 Potassium 4.2 mmol/L (3.6-5.0) 04/18/20 15:25 Chloride 104 mmol/L (101-111) 04/18/20 15:25 Carbon Dioxide 22 mmol/L (21-31) 04/18/20 15:25 Anion Gap 16.2 (12-18) 04/18/20 15:25 BUN 19 mg/dL (7-18) H 04/18/20 15:25 Creatinine 1.07 mg/dL (0.6-1.3) 04/18/20 15:25 BUN/Creatinine Ratio 17.8 (10-20) 04/18/20 15:25 Random Glucose 110 mg/dL (70-105) H 04/18/20 15:25 Serum Osmolality 278.6 mOsm/L (275-295) 04/18/20 15:25 Calcium 8.9 mg/dL (8.4-10.2) 04/18/20 15:25 Total Bilirubin 0.6 mg/dL (0.2-1.0) 04/18/20 15:25 AST 14 IU/L (10-42) 04/18/20 15:25 ALT 21 IU/L (10-60) 04/18/20 15:25 Alkaline Phosphatase 59 IU/L (42-121) 04/18/20 15:25 Troponin I 0.02 ng/mL (0.01-0.05) 04/18/20 15:25 B-Natriuretic Peptide 67.2 pg/ml (0-100) 04/18/20 15:25 Serum Total Protein 7.0 gm/dL (6.4-8.2) 04/18/20 15:25 Albumin 3.9 g/dl (3.2-5.5) 04/18/20 15:25 Globulin 3.1 gm/dL (2.3-3.5) 04/18/20 15:25 Albumin/Globulin Ratio 1.3 (1.1-1.9) 04/18/20 15:25 Lipase 36 U/L (22-51) 04/18/20 15:25 The data reviewed when caring for this patient included: nurse notes, prior records, etc. The history and assessments from nurses notes were reviewed and considered, and the patient's home medication list was also reviewed and conside red. My assessment and the results of testing completed here in the ED were discussed with the patient/family. All questions were answered, and they express understanding of my assessment and the plan. They have been instructed to return if their symptoms worsen, and have been asked to follow up with their primary care physician to recheck today's presenting complaint. Strict return precautions given. I have reviewed medication, benefits, alternatives and side effects. Patient decided to proceed with medication.patient discharged home in stable condition. Estella Pineda DO #801 - EKG/XRAY/CT EKG: Sinus, Tachy, Changed from - more pronounced q wave in V6 when compared ot 12/16/2019 Comments: LAD, RBBB. poor r wave progression, q wave in inferior leads, 1st degree av XRAY: chest - Heart size normal. Mild hazy increased density lung bases which could reflect developing pneumonia or atelectasis. Short-term follow up recommended. No pleural effusion or pneumothorax. Departure - Departure Clinical Impression: COPD exacerbation Pneumonia Qualifiers: Pneumonia type: due to unspecified organism Laterality: bilateral Lung location: unspecified part of lung Qualified Code(s): J18.9 - Pneumonia, unspecified organism Time of Disposition: 16:35 Disposition: Discharge to Home or Self Care Departure Forms: ED Discharge - Pt. Copy, Patient Portal Self Enrollment Instructions: Pneumonia in Adults, Exacerbation of COPD (DC) Diet: resume usual diet Activity: increase activity as tolerated Referrals: Earl Jarrett III, MD [Primary Care Provider] - 1-2 Days Prescriptions: Levofloxacin [Levaquin] 750 mg PO DAILY #5 tab Prednisone 20 mg PO DAILY #10 tab Home Medications: Ambulatory Orders Aspirin [Baby Aspirin] 81 mg PO DAILY 04/21/14 Terazosin HCl 2 mg PO BEDTIME 04/21/14 Omeprazole [Prilosec Cap] 20 mg PO ACBK #30 cap 08/26/14 Citalopram Hydrobromide [Celexa] 20 mg PO DAILY 12/24/15 Simvastatin 10 mg PO BEDTIME 06/20/16 Albuterol Sulfate [Ventolin Hfa] 1 inh INH PRN PRN 02/17/18 Budesonide-Formoterol Fumarate [Symbicort 160-4.5 Mcg/Act] 2 inh INH BID 02/17/18 Carvedilol 3.125 mg PO BID 02/17/18 Umeclidinium [place] [Incruse Ellipta] 62.5 mg INH DAILY 02/17/18 Albuterol Sulfate Nebs [Proventil Nebs] 2.5 mg INH PRN PRN 09/30/18 Losartan Potassium 50 mg PO DAILY 09/30/18 Montelukast [Singulair] 10 mg PO BEDTIME 09/30/18 Nicotine Patch 21 mg [Habitrol Patch 21mg] 21 mg TD PRN PRN MDD craving 09/30/18 ALPRAZolam [Xanax] 0.5 mg PO Q6H PRN #10 tab 12/19/19 Cefdinir 300 mg PO BID #14 capsule 12/19/19 Prednisone See Taper PO DAILY #30 tab 12/19/19 Levofloxacin [Levaquin] 750 mg PO DAILY #5 tab 04/18/20 Prednisone 20 mg PO DAILY #10 tab 04/18/20
[2020-04-18] MEDS ORDERED: IPRATROPIUM/ALBUTEROL 3 ML VIAL NEB ONE (16:33)
[2020-04-18] MEDS ORDERED: levoFLOXacin 750MG IV 750 MG in PREMIX BAG 1 BAG IVPB ONE (16:34)
[2020-04-18 18:15] VITALS: BP 106/70; TEMP 98; O2SAT 96
== END 2020-04-18 18:15 | disposition home or self-care (01) ==
LOC: ER 15:00
DX: J44.1 Chronic obstructive pulmonary disease with (acute) exacerbation (principal); J18.9 Pneumonia, unspecified organism; R00.0 Tachycardia, unspecified; I45.10 Unspecified right bundle-branch block; I44.0 Atrioventricular block, first degree; M25.572 Pain in left ankle and joints of left foot; J02.9 Acute pharyngitis, unspecified; I50.9 Heart failure, unspecified; I11.0 Hypertensive heart disease with heart failure; Z20.828 Contact with and (suspected) exposure to other viral communicable diseases; Z87.891 Personal history of nicotine dependence; Z79.899 Other long term (current) drug therapy; Z79.82 Long term (current) use of aspirin; Z87.01 Personal history of pneumonia (recurrent)
CPT/HCPCS: 36415; 71045; 73610; 80053; 83690; 83880; 84484; 85025; 87502; 87635; 93005; 94640; J1956; J2405; J2930; J7620